=== PATIENT | male | born 1950 | race Caucasian/White ===

== ENCOUNTER → 2018-02-01 09:21 | Outpatient (CLI) | payer OTHER, SELFPAY ==
[2018-02-01 10:16] LABS: Anion Gap 9 (5-15); BUN 17 mg/dL (7-18); BUN/Creat Ratio 17.6 RATIO (10-20); Calcium,Total 8.8 mg/dL (8.5-10.1); Chloride 108 mmol/L (98-107); Cholesterol 160 mg/dL (200); Creatinine, Serum 0.97 mg/dL (0.70-1.30); EST Glomerular Filtration Rate 83 mL/min (>60); Est Glom Filt Rate - Afr Amer 100 mL/min (>60); Glucose 97 mg/dL (74-106); High Density Lipoprotein 54 mg/dL; PSA,Total- Diagnostic 8.47 ng/mL (0.0-4.0); Sodium Level 142 mmol/L (136-145); Triglycerides 75 mg/dL; Very Low Density Lipoprotein 15 mg/dL (5-40)
== END ==
PROVIDERS: Family Provider Family Medicine; PCP Family Medicine; Visit Provider Family Medicine
DX: I10 Essential (primary) hypertension (principal); E78.00 Pure hypercholesterolemia, unspecified; R97.20 Elevated prostate specific antigen [PSA]
CPT/HCPCS: 80048; 80061; 84153

== ENCOUNTER → 2018-02-28 16:32 | Outpatient (CLI) | payer MEDICARE, OTHER, SELFPAY ==
--- NOTE | 2018-02-28 11:43 | COLBX_PTH ---
PATIENT: ELLIOT VELASQUEZ LOC: [facility] U#:[id number] AGE/SX: 75/M ROOM: RE02/28/[address]: Dr. Manjeet El MD : 1950 BED: DIS: SPEC #: [id number] RECD: 02/28/18 15:36 STATUS: LAKEISHA PARKEROneyda #: [id number] PWAEL: 02/28/18 11:[address]: Manjeet El DEPT: SURGICAL PATHOLOGY RECD BY: Eulalia Copeland ENTERED: 03/03/18 11:22 SP TYPE: COLON BX OTHR DR: Dr. Kannan Cooper MD [facility] Tissues: Transverse colon Procedures: Surgery Specimen Level IV HEADER OPERATION: Colonoscopy with biopsies PRE-OP DIAGNOSIS: Family history colon CA TISSUE SUBMITTED: Transverse colon polyp biopsies, rule out adenoma MICROSCOPIC DIAGNOSIS Transverse colon polyp, biopsy: Tubular adenoma. Fragments of hyperplastic polyp. SJ:tami 7/24/18 MICROSCOPIC DESCRIPTION Slides are reviewed. GROSS DESCRIPTION Received in fixative is one container labeled with the patient's name and designated transverse colon polyp biopsy. The specimen consists of multiple irregular fragments of light hall soft tissue that in aggregate measure 1.5 x 0.3 x 0.1 cm. The specimen is totally submitted in one cassette. / SJ:rg 03/03/18 TC:1 CPT: 88226
== END ==
PROVIDERS: Family Provider Family Medicine; Visit Provider Internal Medicine Gastroenterology
DX: Z80.0 Family history of malignant neoplasm of digestive organs (principal)
CPT/HCPCS: 88305

== ENCOUNTER → 2018-05-19 10:34 | Outpatient (CLI) | payer MEDICARE, OTHER, SELFPAY ==
--- NOTE | 2018-05-19 10:42 | RAD_ITS ---
STUDY: X-RAY - RIGHT FOOT CLINICAL: Male, 68 years old. Injury and pain TECHNIQUE: Three view(s) of the foot were obtained. COMPARISON: None. FINDINGS: Bones: There are no acute osseous abnormalities. Joints: The visualized joints are unremarkable. Soft tissues: There is mild diffuse soft tissue swelling. There is a small calcification in the soft tissues adjacent to the medial cuneiform on the oblique image. Vascular calcifications are present. Foreign body: None RAD/Foot min 3 Views IMPRESSION: Possible small fragment fragment off the medial cuneiform. Electronically Signed: Lena Nieto MD at 19:55 EDT Tel Direct: [phone], Service support ,
== END ==
PROVIDERS: Family Provider Family Medicine; PCP Family Medicine; Referring Provider Nurse Practitioner Family; Visit Provider Nurse Practitioner Family
DX: S93.601A Unspecified sprain of right foot, initial encounter (principal)
CPT/HCPCS: 73630

== ENCOUNTER → 2018-09-25 09:00 | Outpatient (CLI) | payer MEDICARE, OTHER, SELFPAY ==
[2018-09-25 10:30] LABS: PSA,Total - Annual Screen < 0.01 ng/mL (0.00-4.00)
== END ==
PROVIDERS: Family Provider Family Medicine; PCP Family Medicine
DX: C61 Malignant neoplasm of prostate (principal)
CPT/HCPCS: 36415; 84153; G0103

== ENCOUNTER → 2018-12-25 09:12 | Outpatient (CLI) | payer MEDICARE, OTHER, SELFPAY ==
[2018-10-18 11:34] VITALS: BMI 25.1
[2018-12-25 10:46] LABS: PSA,Total- Diagnostic 0.01 ng/mL (0.0-4.0)
== END ==
PROVIDERS: Family Provider Family Medicine; PCP Family Medicine
DX: C61 Malignant neoplasm of prostate (principal)
CPT/HCPCS: 36415; 84153

== ENCOUNTER → 2019-02-11 09:47 | Outpatient (CLI) | payer MEDICARE, OTHER, SELFPAY ==
[2018-10-18 11:34] VITALS: BMI 25.1
[2019-02-11 13:15] LABS: Anion Gap 5 (5-15); BUN 18 mg/dL (7-18); BUN/Creat Ratio 20.2 RATIO (10-20); Calcium,Total 9.4 mg/dL (8.5-10.1); Chloride 107 mmol/L (98-107); Cholesterol 180 mg/dL (200); Creatinine, Serum 0.89 mg/dL (0.70-1.30); EST Glomerular Filtration Rate 91 mL/min (>60); Est Glom Filt Rate - Afr Amer 110 mL/min (>60); Glucose 84 mg/dL (74-106); High Density Lipoprotein 54 mg/dL; PSA,Total- Diagnostic 0.03 ng/mL (0.0-4.0); Potassium 4.7 mmol/L (3.5-5.1); Sodium Level 139 mmol/L (136-145); Triglycerides 95 mg/dL; Very Low Density Lipoprotein 19 mg/dL (5-40)
== END ==
PROVIDERS: Family Provider Family Medicine; PCP Family Medicine; Referring Provider Family Medicine; Visit Provider Family Medicine
DX: I10 Essential (primary) hypertension (principal); E78.00 Pure hypercholesterolemia, unspecified; C61 Malignant neoplasm of prostate
CPT/HCPCS: 36415; 80048; 80061; 84153

== ENCOUNTER → 2019-03-11 13:14 | Outpatient (CLI) | payer SELFPAY ==
[2018-10-18 11:34] VITALS: BMI 25.1
--- NOTE | 2019-03-11 13:20 | CT_ITS ---
STUDY: CARDIAC CALCIUM SCORING - CT CHEST REASON FOR EXAM: Male, 69 years old. Hypertension RADIATION DOSAGE (If Supplied By Facility): CTDIvol = ( 12.19 ) mGy, DLP = ( 195.04 ) mGycm TECHNIQUE: Axial non-enhanced images were acquired through the heart for the sole purpose of measuring coronary artery calcium. Individualized dose optimization techniques were used for this CT. COMPARISON: None. FINDINGS: Please see the patient's medical record for a personalized calcium score. Visualized lungs are clear. The visualized soft tissues are within normal limits. CT/Limited Chest CT w/CCTA IMPRESSION: Please see the patient's medical record for a personalized calcium score. Please go to: [email or web address] , for a description of the calculator. Electronically Signed: Christiano Anthony, at 14:26 EDT Tel , Service support ,
[2019-03-11 13:47] VITALS: BP 131/77; PULSE 58; RESP 18; O2SAT 95; BMI 24.8
--- NOTE | 2019-03-11 22:49 | CA.SCORE ---
Calcium Scoring Date of Study:: 03/11/19 Coronary Calcium Scoring: High-resolution Computed Tomographic imaging of the chest was performed on [03/11/2019], with particular attention paid to the coronary arteries. Images from the examination were analyzed for the presence and extent of coronary artery calcification , using coronary calcium quantification software. The patient tolerated the procedure well and there were no complications. The results of the coronary calcification analysis are provided below. - Findings Left Main (LM): 0 Left Anterior Descending (LAD): 162 Left Circumflex (LCX): 3 Right Coronary Artery (RCA): 431 Total Agatston Score: 596 Percentile Rankin - Conclusion Calcium Scoring Interpretation: 0 No identifiable atherosclerotic plaque. Very low cardiovascular disease risk. <5% chance of presence coronary artery disease A Negative Examination 1-10 Minimal Plaque burden. Significant coronary artery disease very unlikely. 11-100 Mild plaque burden. Likely mild or minimal coronary atherosclerosis. 101-400 Moderate plaque burden Moderate non-obstructive coronary artery disease highly likely. Over 400 Extensive plaque burden. High likelihood of at least one significant coronary stenosis (>50% diameter) Calcium Score: >400 High likelihood of at least one significant coronary stenosis - The above is suggestive of an elevated calcium score with a high likelihood that at least one coronary artery has a stenosis of more than 50%. For cardiac evaluation of risk should involve assessment of all conventional risk factors and the scores and percentile findings reported herein should be evaluated in this context.
== END ==
PROVIDERS: Family Provider Family Medicine; PCP Family Medicine; Referring Provider Family Medicine; Visit Provider Family Medicine
DX: I10 Essential (primary) hypertension (principal)
CPT/HCPCS: 75571; 76380

== ENCOUNTER → 2019-03-26 14:47 | Outpatient (CLI) | payer MEDICARE, OTHER, SELFPAY ==
[2019-03-11 13:47] VITALS: BMI 24.8
[2019-03-26 16:05] LABS: PSA,Total- Diagnostic 0.04 ng/mL (0.0-4.0)
== END ==
PROVIDERS: Family Provider Family Medicine; PCP Family Medicine
DX: C61 Malignant neoplasm of prostate (principal)
CPT/HCPCS: 36415; 84153

== ENCOUNTER → 2019-04-29 06:48 | Outpatient (CLI) | payer MEDICARE, OTHER, SELFPAY ==
[2019-04-01 14:42] VITALS: BMI 25.2
--- NOTE | 2019-04-29 06:50 | ECHOD_ITS ---
Reason For Study: Dyspnea/SOB Procedure This was a 2D Doppler, Color Flow transthoracic echocardiogram. Exam performed in department. Left Ventricle Normal LV size. Left ventricular systolic function is normal. The estimated ejection fraction is 65 %. Stage 1 diastolic dysfunction. No regional wall motion abnormalities noted. Right Ventricle Normal RV size. Normal systolic function. Atria Normal left atrium. Normal right atrium. Bubble contrast study negative for right to left interatrial shunt. Mitral Valve Normal mitral valve. Mild-Moderate (1-2+) eccentric mitral valve insufficiency. Tricuspid Valve Normal tricuspid valve. Mild tricuspid valve insufficiency. Pulmonary artery systolic pressure is 25 mmHg. Aortic Valve Normal aortic valve. Trisinus/trileaflet aortic valve. Great Vessels Normal aortic root. The pulmonary artery is normal size. Normal inferior vena cava. Pericardium/Pleural No pericardial effusion. Medication Performed a rapid injection of agitated mix of 9 cc saline and 1cc air to assess for atrial septal defect. MMode/2D Measurements & Calculations LVIDd: 4.7 cm IVSd: 1.4 cm Ao root diam: 3.0 cm LVIDs: 2.7 cm LVPWd: 1.1 cm RVDd: 3.7 cm FS: 43.2 % LAV(MOD-bp): 55.4 ml LVAd ap4: 29.2 cm2 SV(MOD-sp4): 52.3 ml LAV(MOD-bp) Indexed: 28.0 ml/m2 EDV(MOD-sp4): 93.2 ml LAV(MOD-sp2): 62.2 ml EDV(sp4-el): 94.9 ml LAV(MOD-sp4): 47.7 ml LVAs ap4: 17.4 cm2 ESV(MOD-sp4): 40.9 ml ESV(sp4-el): 39.9 ml EF(MOD-sp4): 56.1 % EF(sp4-el): 57.9 % SV(sp4-el): 54.9 ml LA A4 area: 17.7 cm2 LA dimension(2D): 4.6 cm RA A4 area: 19.3 cm2 Doppler Measurements & Calculations MV E max ld: 49.8 cm/sec Lat Peak E' Ld: 8.0 cm/sec Med Peak E' Ld: 6.1 cm/sec MV A max ld: 52.8 cm/sec E/E' lat: 6.2 E/E' med: 8.2 MV E/A: 0.94 Ao V2 max: 122.9 cm/sec AI max ld: 480.6 cm/sec LV V1 max: 97.0 cm/sec Ao max P.0 mmHg AI max P.4 mmHg LV V1 max P.8 mmHg Ao V2 mean: 80.4 cm/sec Ao mean P.9 mmHg AI dec slope: 152.8 cm/sec2 Ao V2 VTI: 29.0 cm AI P1/2t: 921.2 msec PA V2 max: 138.5 cm/sec TR max ld: 234.1 cm/sec TR max P.9 mmHg Interpretation Summary Normal LV size. Left ventricular systolic function is normal. The estimated ejection fraction is 65 %. Stage 1 diastolic dysfunction. Mild-Moderate (1-2+) eccentric mitral valve insufficiency. Mild tricuspid valve insufficiency. Ordering Physician: Hector Yuen Referring Physician: Kannan Carlton Performed By: Lianne Zhang, SUSSY, RVT
--- NOTE | 2019-04-29 12:41 | STRESSREP ---
Stress Test Report Exercise myocardial perfusion stress test. 69-year-old man with a history of abnormal cardiac CT. Stress protocol demonstrates normal sinus rhythm sinus bradycardia with a rate of 44 bpm resting blood pressure is 120/80 mmHg. The patient exercised according to regular Fede protocol for a total duration of 10 minutes completing 1 minute into stage IV of the Fede protocol. The maximum heart rate attained was 115 bpm to 75% maximum corrected heart rate maximum workload was 11.7 metabolic equivalents. Patient maintained sinus rhythm throughout the recording. At rest were no ST or T wave changes noted suggest ischemia at peak exercise upsloping ST changes only were noted with no meet the criteria for ischemia. No clinical angina was noted. The resting blood pressure 120 over 80 mmHg the peak blood pressure 160/64 mmHg. Noted the test was terminated due to leg fatigue. Myocardial perfusion protocol. 8.8 mCi of technetium 99m sestamibi was injected at rest. The patient exercised to consider Leptospira call for total duration of 10 minutes. At peak exercise 29.5 mCi of technetium 99 M sestamibi was injected and stress images were obtained stress and rest images were reconstructed in comparing the short axis vertical and horizontal long axes. Gated images was obtained Perfusion SPECT analysis: Review of the stress images demonstrate normal uptake of tracer noted in all the rest myocardium the rest images demonstrate normal uptake of tracer noted in all areas of myocardium no areas of reversibility or notes suggest ischemia no previous infarct is noted. Gated SPECT analysis: The gated ejection fraction is noted to be 60% Conclusion: Normal exercise myocardial perfusion stress test at a high workload. Preserved ejection fraction Excellent functional capacity.
== END ==
PROVIDERS: Family Provider Family Medicine; PCP Family Medicine; Referring Provider Internal Medicine Cardiovascular Disease; Visit Provider Internal Medicine Cardiovascular Disease
DX: R93.1 Abnormal findings on diagnostic imaging of heart and coronary circulation (principal); I10 Essential (primary) hypertension; I25.10 Atherosclerotic heart disease of native coronary artery without angina pectoris; R06.00 Dyspnea, unspecified
CPT/HCPCS: 78452; 93017; 93306; A9500; A4216

== ENCOUNTER → 2019-06-04 15:25 | Outpatient (CLI) | payer MEDICARE, OTHER, SELFPAY ==
[2019-04-01 14:42] VITALS: BMI 25.2
[2019-06-04 17:34] LABS: PSA,Total- Diagnostic 0.06 ng/mL (0.0-4.0)
== END ==
PROVIDERS: Family Provider Family Medicine; PCP Family Medicine
DX: C61 Malignant neoplasm of prostate (principal)
CPT/HCPCS: 36415; 84153

== ENCOUNTER → 2019-10-10 11:24 | Outpatient (CLI) | payer MEDICARE, OTHER, SELFPAY ==
[2019-04-01 14:42] VITALS: BMI 25.2
[2019-10-10 12:25] LABS: PSA,Total - Annual Screen 0.02 ng/mL (0.00-4.00)
== END ==
PROVIDERS: PCP Family Medicine
DX: C61 Malignant neoplasm of prostate (principal)
CPT/HCPCS: 36415; 84153; G0103

== ENCOUNTER → 2020-01-22 09:30 | Outpatient (CLI) | payer MEDICARE, OTHER, SELFPAY ==
[2019-04-01 14:42] VITALS: BMI 25.2
[2020-01-22 10:20] LABS: ALB/GLOB Ratio 0.9 RATIO (0.9-2.4); AST(SGOT) 24 U/L (15-37); Alanine Aminotransfer ALT/SGPT 31 U/L (16-61); Albumin, Serum 3.4 g/dL (3.2-5.0); Alkaline Phosphatase 62 U/L (45-117); Anion Gap 6 (5-15); BUN 17 mg/dL (7-18); BUN/Creat Ratio 19.2 RATIO (10-20); Calcium,Total 8.8 mg/dL (8.5-10.1); Chloride 109 mmol/L (98-107); Cholesterol 179 mg/dL (200); Creatinine, Serum 0.89 mg/dL (0.70-1.30); EST Glomerular Filtration Rate 91 mL/min (>60); Est Glom Filt Rate - Afr Amer 110 mL/min (>60); Globulin 3.8 g/dL (2.2-4.2); Glucose 91 mg/dL (74-106); High Density Lipoprotein 56 mg/dL; PSA,Total- Diagnostic < 0.01 ng/mL (0.0-4.0); Protein, Total 7.2 g/dL (6.4-8.2); Sodium Level 142 mmol/L (136-145); Triglycerides 112 mg/dL; Very Low Density Lipoprotein 22 mg/dL (5-40)
== END ==
PROVIDERS: PCP Family Medicine; Referring Provider Family Medicine; Visit Provider Family Medicine
DX: C61 Malignant neoplasm of prostate (principal); I10 Essential (primary) hypertension
CPT/HCPCS: 36415; 80053; 80061; 84153

== ENCOUNTER → 2020-04-08 13:18 | Outpatient (CLI) | payer MEDICARE, OTHER, SELFPAY ==
[2020-04-05 07:01] VITALS: BMI 25.5
[2020-04-08 16:45] LABS: Ferritin 141 ng/mL (26-388)
== END ==
PROVIDERS: PCP Family Medicine; Referring Provider Internal Medicine Pulmonary Disease; Visit Provider Internal Medicine Pulmonary Disease
DX: M79.606 Pain in leg, unspecified (principal)
CPT/HCPCS: 36415; 82728

== ENCOUNTER → 2020-04-20 09:55 | Outpatient (CLI) | payer MEDICARE, OTHER, SELFPAY ==
[2020-04-05 07:01] VITALS: BMI 25.5
[2020-04-20 11:58] LABS: PSA,Total- Diagnostic < 0.01 ng/mL (0.0-4.0)
== END ==
PROVIDERS: PCP Family Medicine
DX: C61 Malignant neoplasm of prostate (principal)
CPT/HCPCS: 36415; 84153

== ENCOUNTER → 2020-04-25 06:06 | Outpatient (CLI) | payer MEDICARE, OTHER, SELFPAY ==
[2020-04-05 07:01] VITALS: BMI 25.5
--- NOTE | 2020-04-25 10:28 | STRESSREP ---
Stress Test Report Exercise myocardial perfusion stress test. 70-year-old man with a history of an abnormal calcium score. Stress protocol: Resting EKG demonstrates sinus bradycardia with a rate of 45 bpm resting blood pressure is 154/84 mmHg. The patient exercised according to the regular Fede protocol for a total duration of 9 minutes and 21 seconds. The maximum heart rate attained was 142 bpm which was 93% of maximum predicted heart rate the maximum workload was 10.6 metabolic equivalents. At rest there were no ST or T wave changes noted to suggest ischemia at peak exercise upsloping ST changes were noted we did not meet the criteria for ischemia. The test was terminated due to the target heart rate being achieved. No chest pain was noted. Myocardial perfusion protocol. 11.8 mCi of technetium 99m sestamibi was injected at rest. The patient exercised according to regular Fede protocol for almost 9-1/2 minutes at peak exercise 32.0 mCi of technetium 99m sestamibi was injected stress images were obtained stress and rest images were reconstructed and compared in the short axis vertical long and horizontal long axis. Gated images were also obtained. Perfusion SPECT analysis: Review of the stress images demonstrate normal uptake of tracer noted in the anterior wall, lateral wall and septum. The inferior wall demonstrates mild reduction in perfusion with mild improvement on the resting images suggesting a mild amount of inferior ischemia. The other pritchard appear to be well perfused. Gated SPECT analysis: The gated ejection fraction is 72%. Conclusion: Mildly abnormal exercise myocardial perfusion stress test at a high workload with mild inferior ischemia. Preserved ejection fraction.
== END ==
PROVIDERS: PCP Family Medicine; Referring Provider Internal Medicine Cardiovascular Disease; Visit Provider Internal Medicine Cardiovascular Disease
DX: I25.10 Atherosclerotic heart disease of native coronary artery without angina pectoris (principal); R06.00 Dyspnea, unspecified
CPT/HCPCS: 78452; 93017; A9500; A4216

== ENCOUNTER 2020-05-02 08:37 | Day surgery (SDC) | payer MEDICARE, OTHER, SELFPAY ==
[2020-04-05 07:01] VITALS: BMI 25.5
--- NOTE | 2020-04-25 14:12 | RAD_ITS ---
STUDY: X-RAY CHEST REASON FOR EXAM: Male, 70 years old. abnormal stress, CAD, patient to have heart cath in near future TECHNIQUE: PA and lateral views of the chest. COMPARISON: 01/25/2013 FINDINGS: There is hyperinflation of the lungs consistent with chronic obstructive lung disease (COPD). There is no demonstrated pleural abnormality. Normal size heart. Normal mediastinum and kevin. Normal visualized pulmonary arteries. Normal visualized aortic arch and descending thoracic aorta. Normal visualized thoracic spine. Normal visualized ribs, clavicles, and shoulders. There is no demonstrated abnormality of the visualized soft tissue structures of the upper abdomen. RAD/Chest PA and Lateral IMPRESSION: Emphysema without pneumonia or atelectasis. Electronically Signed: Winston Torres MD at 16:41 EDT Tel , Service support ,
[2020-04-25 15:15] LABS: Hemoglobin 14.7 g/dL (13.0-16.5); Mean Corp Hgb Conc 33.4 g/dL (32-36); Mean Corpuscular Hgb 30.7 pg (27.0-32.0); Mean Corpuscular Volume 91.9 fL (80-94); Mean Platelet Vol. 9.7 fl (6.2-12.0); Platelet Count 207 K/mm3 (150-450); RBC Distribution Width CV 13.3 % (11.6-14.6); RBC Distribution Width SD 45.3 fl (35.1-43.9); Red Blood Count 4.79 M/mm3 (4.6-6.2); White Blood Count 7.2 K/mm3 (4.4-11.0)
[2020-04-25 15:52] LABS: Anion Gap 4 (5-15); BUN 16 mg/dL (7-18); Calcium,Total 8.9 mg/dL (8.5-10.1); Chloride 110 mmol/L (98-107); Creatinine, Serum 0.84 mg/dL (0.70-1.30); EST Glomerular Filtration Rate 97 mL/min (>60); Est Glom Filt Rate - Afr Amer 117 mL/min (>60); Glucose 87 mg/dL (74-106); Potassium 4.1 mmol/L (3.5-5.1); Sodium Level 141 mmol/L (136-145)
[2020-04-27 14:06] VITALS: BMI 25.5
--- NOTE | 2020-05-02 11:04 | CL.D_ITS ---
Patient Name: ELLIOT VELASQUEZ Study Date: 05/02/2020 Performing: Hector Yuen MD Ht: 70.07 inches 178 cm : 1950 Wt: 178.57 lbs 81 kg Age: 70 Gender: male BSA: 1.99 PROCEDURE(S) PERFORMED [id number]/LV CLINICAL PROFILE AND INDICATIONS Indications: Suspected CAD Heart Failure: None Stress/Imaging Date: 04/25/2020Stress Test with SPECT MPI: Positive Low Risk CAD Presentations: No Sxs, no angina. CONCLUSIONS Moderate disease noted in the ostial left anterior descending artery. The rest of the vessels did no t demonstrate any significant stenosis. RECOMMENDATIONS In light of the fact that the patient exercised very well on the treadmill for 9 minutes with no ante rior ischemia the plan is to continue with aggressive medical therapy and double the statin DESCRIPTION OF PROCEDURE The patient arrived to the procedure lab. The risks and benefits of the procedure as well as a full d escription of our services here and current unavailability of surgical backup were fully explained to the patient and/or their significant other prior to the catheterization. The Timeout was completed, verifying the correct patient and procedure. The patient's procedural site was prepped and draped in the usual fashion. Local anesthetic was given subcutaneously to right radial region with Lidocaine 2% . Using a modified Seldinger technique, arterial access was obtained via the right radial artery, a 6 Fr sheath was inserted. Right Coronary Artery selective angiography was performed in multiple views using a 5 Fr. 4.0 [employer] catheter. Left Coronary Artery selective angiography was performed in multipl e views using a 5 Fr. 4.0 [employer] catheter. Left Ventriculography was performed in MAC projection using a 5 Fr. Pigtail catheter. LV to AO pullback pressures were then recorded.The arterial sheath was pulled and a TR Band was applied for hemostasis CORONARY ANGIOGRAPHY DOMINANCE: Right Dominant LEFT HEART ASSESSMENT Left Ventricular Ejection Fraction: by LV Gram 60 % Normal LV wall motion Normal Left Ventricular systolic function LEFT MAIN: Angiographically normal LEFT ANTERIOR DESCENDING ARTERY: OSTIAL LAD: 60 % Stenosis MID LAD: Mild luminal irregularities DISTAL LAD: Mild luminal irregularities CIRCUMFLEX ARTERY: Mild luminal irregularities RIGHT CORONARY ARTERY: No significant disease noted COMPLICATIONS No Complications PROCEDURE MEDICATIONS Fentanyl 50 mcg IV Versed 1 mg IV Oxygen: 2 L/min via nasal cannula Heparin diluted in 23cc Heparinized saline. Patient given 10cc IA of this solution. 05/02/2020 10:44: 50 SUMMARY OF HEMODYNAMIC DATA Time AIR REST ECG 09:08:29 AO 102/47 (69) SA 10:46:47 LV 113/-7, 0 10:54:58 LV 118/-6, 1 10:55:04 LV 114/-2, 5 10:55:32 LV 66/-12, 2 10:55:39 LVp 97/-6, 1 10:55:44 AOp 106/45 (68) 10:55:49 Signed By Hector Yuen MD On 05/02/2020 11:03:57 AM Hector Yuen MD
== END 2020-05-02 13:00 | disposition home or self-care (01) ==
LOC: CLSP 08:39
PROVIDERS: PCP Family Medicine; Referring Provider Internal Medicine Cardiovascular Disease; Visit Provider Internal Medicine Cardiovascular Disease
DX: R06.00 Dyspnea, unspecified (principal); I10 Essential (primary) hypertension; E78.5 Hyperlipidemia, unspecified; R94.39 Abnormal result of other cardiovascular function study; G47.33 Obstructive sleep apnea (adult) (pediatric); F32.9 Major depressive disorder, single episode, unspecified; Z82.49 Family history of ischemic heart disease and other diseases of the circulatory system
CPT/HCPCS: 36415; 71046; 80048; 85027; 93458; 99152; 99153; J7040; Q9967; C1769; C1894

== ENCOUNTER → 2020-06-06 12:07 | Outpatient (CLI) | payer MEDICARE, OTHER, SELFPAY ==
[2020-04-27 14:06] VITALS: BMI 25.5
[2020-06-06 15:22] LABS: Absolute Lymphocyte Count 1.16 X10^3/uL (0.83-4.51); Absolute Neutrophil Count 4.5 X10^3/uL (2.0-7.7); Basophil# 0.03 X10^3/uL; Basophil% 0.5 % (0-1); Eosinophil# 0.05 X10^3/uL; Eosinophils% 0.8 % (0-5); Hematocrit 44.8 % (40-54); Hemoglobin 14.6 g/dL (13.0-16.5); Lymphocyte # 1.16 X10^3/ul (4.0); Lymphocyte % 18.7 % (19-41); Mean Corp Hgb Conc 32.6 g/dL (32-36); Mean Corpuscular Hgb 30.5 pg (27.0-32.0); Mean Corpuscular Volume 93.7 fL (80-94); Monocyte# 0.47 X10^3/uL; Monocyte% 7.6 % (0-10); NRBC Flagged by Analyzer 0 % (0-5); Neutrophil # 4.47 X10^3/uL (2.7-7.7); Neutrophil % 72.1 % (47-70); Platelet Count 193 K/mm3 (150-450); RBC Distribution Width CV 13.4 % (11.6-14.6); RBC Distribution Width SD 46.6 fl (35.1-43.9); Red Blood Count 4.78 M/mm3 (4.6-6.2); White Blood Count 6.2 K/mm3 (4.4-11.0)
[2020-06-06 15:32] LABS: AST(SGOT) 20 U/L (15-37); Alanine Aminotransfer ALT/SGPT 32 U/L (16-61); Albumin, Serum 3.7 g/dL (3.2-5.0); Alkaline Phosphatase 65 U/L (45-117); Anion Gap 5 (5-15); BUN 15 mg/dL (7-18); BUN/Creat Ratio 15.7 RATIO (10-20); Calcium,Total 9.7 mg/dL (8.5-10.1); Chloride 109 mmol/L (98-107); Creatinine, Serum 0.96 mg/dL (0.70-1.30); EST Glomerular Filtration Rate 83 mL/min (>60); Est Glom Filt Rate - Afr Amer 101 mL/min (>60); Globulin 3.6 g/dL (2.2-4.2); Glucose 82 mg/dL (74-106); Lipase 91 U/L (73-393); Potassium 4.4 mmol/L (3.5-5.1); Protein, Total 7.3 g/dL (6.4-8.2); Sodium Level 143 mmol/L (136-145)
== END ==
PROVIDERS: PCP Family Medicine; Referring Provider Family Medicine; Visit Provider Family Medicine
DX: R10.9 Unspecified abdominal pain (principal)
CPT/HCPCS: 36415; 80053; 83690; 85025

== ENCOUNTER → 2020-06-13 10:10 | Outpatient (CLI) | payer MEDICARE, OTHER, SELFPAY ==
[2020-04-27 14:06] VITALS: BMI 25.5
--- NOTE | 2020-06-13 10:11 | US_ITS ---
STUDY: ABDOMINAL ULTRASOUND REASON FOR EXAM: Male, 70 years old. ABD DISCOMFORT -- ACID REFLUX TECHNIQUE: Transabdominal ultrasound was performed with real-time and static becker scale imaging. TECHNICAL QUALITY: Adequate. COMPARISON: None. FINDINGS: Liver: The liver measures 16.7 cm. There is normal echogenicity of the liver. The bile ducts are within normal limits. There is hepatic color flow. The direction of portal flow is hepatopetal. There is a 1.3 cm x 1.3 cm x 1.2 cm echogenic nodule in the dome portion of the right lobe of the liver suggestive of a small hemangioma. Portal vein measurement: Gallbladder: Normal distended gallbladder. The gallbladder wall measures 2.4 mm. There is a negative sonographic Parra''s sign. There is no pericholecystic fluid. There are no gallstones. Common Bile Duct (C.B.D.): The common bile duct measures 4.0 mm. Pancreas: Normal size of the head, body and tail of the pancreas. There is increased echogenicity of the pancreas. There is no demonstrated pancreatic mass or cyst. Spleen: Normal size of the spleen. The spleen measures 9.4 cm x 4.6 cm x 5.3 cm. Right Kidney: Normal size of the right kidney. The right kidney measures 11.5 cm x 6.8 cm x 5.8 cm. Normal renal cortex. The right cortex measures 2.1 cm. There is no demonstrated renal mass or cyst. There is no right hydronephrosis. Left Kidney: Normal size of the left kidney. The left kidney measures 11.2 cm x 4.4 cm x 5.4 cm. Normal renal cortex. The left cortex measures 1.2 cm. There is no demonstrated renal mass or cyst. There is no left hydronephrosis. Aorta: Unremarkable. I.V.C.: The IVC is patent. There is no ascites. US/Abdomen Complete IMPRESSION: 1.3 cm x 1.3 cm x 1.2 cm echogenic nodule and in the dome portion of the right lobe of the liver suggestive of a small hemangioma. Electronically Signed: Lucas Romano, at 14:04 EST , Service support ,
== END ==
PROVIDERS: PCP Family Medicine; Referring Provider Family Medicine; Visit Provider Family Medicine
DX: R10.9 Unspecified abdominal pain (principal)
CPT/HCPCS: 76700

== ENCOUNTER → 2020-07-30 11:07 | Outpatient (CLI) | payer MEDICARE, OTHER, SELFPAY ==
[2020-07-30 11:59] LABS: PSA,Total- Diagnostic < 0.01 ng/mL (0.0-4.0)
== END ==
PROVIDERS: PCP Family Medicine
DX: C61 Malignant neoplasm of prostate (principal)
CPT/HCPCS: 36415; 84153

== ENCOUNTER 2020-10-18 10:20 | Outpatient (RCR) | payer MEDICARE, OTHER, SELFPAY ==
[2020-10-18] MEDS: COVID-19 VACC, MRNA(PFIZER)/PF 30 MCG/0.3 ML SYRINGE IM (07:39)
[2020-11-08] MEDS: COVID-19 VACC, MRNA(PFIZER)/PF 30 MCG/0.3 ML SYRINGE IM (07:39)
== END 2021-01-17 23:59 ==
LOC: IMMUN 10:20
PROVIDERS: PCP Family Medicine; Visit Provider Family Medicine
DX: Z23 Encounter for immunization (principal)
CPT/HCPCS: 0001A; 0002A; 91300

== ENCOUNTER → 2020-11-03 11:32 | Outpatient (CLI) | payer MEDICARE, OTHER, SELFPAY ==
[2020-11-03 12:42] LABS: PSA,Total- Diagnostic < 0.01 ng/mL (0.0-4.0)
== END ==
PROVIDERS: PCP Family Medicine
DX: C61 Malignant neoplasm of prostate (principal)
CPT/HCPCS: 36415; 84153

== ENCOUNTER → 2021-02-17 10:47 | Outpatient (CLI) | payer MEDICARE, OTHER, SELFPAY ==
[2020-12-15 10:44] VITALS: BMI 25.5
[2021-02-17 12:16] LABS: PSA,Total- Diagnostic < 0.01 ng/mL (0.0-4.0)
== END ==
PROVIDERS: PCP Family Medicine
DX: C61 Malignant neoplasm of prostate (principal)
CPT/HCPCS: 36415; 84153

== ENCOUNTER → 2021-02-24 09:11 | Outpatient (CLI) | payer MEDICARE, OTHER, SELFPAY ==
[2020-12-15 10:44] VITALS: BMI 25.5
[2021-02-24 10:15] LABS: ALB/GLOB Ratio 1.1 RATIO (0.9-2.4); AST(SGOT) 28 U/L (15-37); Alanine Aminotransfer ALT/SGPT 36 U/L (16-61); Albumin, Serum 3.7 g/dL (3.2-5.0); Alkaline Phosphatase 71 U/L (45-117); Anion Gap 4 (5-15); BUN 17 mg/dL (7-18); BUN/Creat Ratio 18.3 RATIO (10-20); Calcium,Total 9.2 mg/dL (8.5-10.1); Chloride 105 mmol/L (98-107); Cholesterol 181 mg/dL (200); Creatinine, Serum 0.93 mg/dL (0.70-1.30); EST Glomerular Filtration Rate 86 mL/min (>60); Est Glom Filt Rate - Afr Amer 104 mL/min (>60); Globulin 3.5 g/dL (2.2-4.2); Glucose 90 mg/dL (74-106); High Density Lipoprotein 51 mg/dL; Potassium 4.1 mmol/L (3.5-5.1); Protein, Total 7.2 g/dL (6.4-8.2); Sodium Level 140 mmol/L (136-145); Triglycerides 176 mg/dL; Very Low Density Lipoprotein 35 mg/dL (5-40)
== END ==
PROVIDERS: PCP Family Medicine; Referring Provider Family Medicine; Visit Provider Family Medicine
DX: E78.00 Pure hypercholesterolemia, unspecified (principal)
CPT/HCPCS: 36415; 80053; 80061

== ENCOUNTER → 2021-05-22 12:59 | Outpatient (CLI) | payer MEDICARE, OTHER, SELFPAY ==
[2021-05-22 14:26] LABS: PSA,Total - Annual Screen < 0.01 ng/mL (0.00-4.00)
== END ==
DX: C61 Malignant neoplasm of prostate (principal)
CPT/HCPCS: 36415; 84153; G0103

== ENCOUNTER → 2021-09-28 10:58 | Outpatient (CLI) | payer MEDICARE, OTHER, SELFPAY ==
[2021-09-28 12:04] LABS: PSA,Total- Diagnostic < 0.01 ng/mL (0.0-4.0)
== END ==
PROVIDERS: PCP Family Medicine
DX: C61 Malignant neoplasm of prostate (principal)
CPT/HCPCS: 36415; 84153

== ENCOUNTER → 2022-01-24 | Outpatient (CLI) | payer MEDICARE, OTHER, SELFPAY ==
[2022-01-24 13:07] LABS: AST(SGOT) 28 U/L (15-37); Alanine Aminotransfer ALT/SGPT 38 U/L (16-61); Albumin, Serum 3.5 g/dL (3.2-5.0); Alkaline Phosphatase 76 U/L (45-117); Bilirubin, Direct 0.15 mg/dL (0.00-0.30); Cholesterol 159 mg/dL (200); Globulin 3.5 g/dL (2.2-4.2); High Density Lipoprotein 49 mg/dL; Triglycerides 135 mg/dL; Very Low Density Lipoprotein 27 mg/dL (5-40)
== END | disposition home or self-care (01) ==
LOC: LAB 11:19
PROVIDERS: PCP Family Medicine; Visit Provider Internal Medicine Cardiovascular Disease
DX: E78.5 Hyperlipidemia, unspecified (principal)
CPT/HCPCS: 36415; 80061; 80076

== ENCOUNTER → 2022-03-01 | Outpatient (CLI) | payer MEDICARE, OTHER, SELFPAY ==
[2022-03-01 17:15] LABS: AST(SGOT) 27 U/L (15-37); Alanine Aminotransfer ALT/SGPT 32 U/L (16-61); Albumin, Serum 3.6 g/dL (3.2-5.0); Alkaline Phosphatase 72 U/L (45-117); Bilirubin, Direct 0.08 mg/dL (0.00-0.30); Cholesterol 149 mg/dL (200); Globulin 3.5 g/dL (2.2-4.2); High Density Lipoprotein 47 mg/dL; Protein, Total 7.1 g/dL (6.4-8.2); Triglycerides 486 mg/dL
== END | disposition home or self-care (01) ==
LOC: LAB 14:51
PROVIDERS: Internal Medicine Cardiovascular Disease; PCP Family Medicine
DX: E78.00 Pure hypercholesterolemia, unspecified (principal); E78.5 Hyperlipidemia, unspecified
CPT/HCPCS: 36415; 80061; 80076

== ENCOUNTER → 2022-03-05 | Outpatient (CLI) | payer MEDICARE, OTHER, SELFPAY ==
[2022-03-05 15:43] LABS: Anion Gap 6 (5-15); BUN 22 mg/dL (7-18); BUN/Creat Ratio 24.4 RATIO (10-20); Calcium,Total 9.4 mg/dL (8.5-10.1); Chloride 105 mmol/L (98-107); EST Glomerular Filtration Rate 88 mL/min (>60); Est Glom Filt Rate - Afr Amer 107 mL/min (>60); Glucose 85 mg/dL (74-106); Potassium 4.2 mmol/L (3.5-5.1); Sodium Level 139 mmol/L (136-145)
== END | disposition home or self-care (01) ==
LOC: MFPLAB 11:45
PROVIDERS: PCP Family Medicine; Referring Provider Family Medicine; Visit Provider Family Medicine
DX: I10 Essential (primary) hypertension (principal)
CPT/HCPCS: 36415; 80048

== ENCOUNTER → 2022-03-13 | Outpatient (CLI) | payer MEDICARE, OTHER, SELFPAY ==
[2022-03-13 14:21] LABS: PSA,Total- Diagnostic 0.02 ng/mL (0.0-4.0)
== END | disposition home or self-care (01) ==
PROVIDERS: PCP Family Medicine
DX: C61 Malignant neoplasm of prostate (principal)
CPT/HCPCS: 36415; 84153

== ENCOUNTER → 2022-04-12 | Outpatient (CLI) | payer MEDICARE, OTHER, SELFPAY ==
[2022-04-12 11:56] LABS: AST(SGOT) 24 U/L (15-37); Alanine Aminotransfer ALT/SGPT 31 U/L (16-61); Albumin, Serum 3.7 g/dL (3.2-5.0); Alkaline Phosphatase 67 U/L (45-117); Bilirubin, Direct 0.16 mg/dL (0.00-0.30); Cholesterol 161 mg/dL (200); Globulin 3.7 g/dL (2.2-4.2); High Density Lipoprotein 49 mg/dL; Protein, Total 7.4 g/dL (6.4-8.2); Triglycerides 118 mg/dL; Very Low Density Lipoprotein 24 mg/dL (5-40)
== END | disposition home or self-care (01) ==
LOC: LAB 10:41
PROVIDERS: PCP Family Medicine; Referring Provider Internal Medicine Cardiovascular Disease; Visit Provider Internal Medicine Cardiovascular Disease
DX: E78.5 Hyperlipidemia, unspecified (principal); I25.118 Atherosclerotic heart disease of native coronary artery with other forms of angina pectoris
CPT/HCPCS: 36415; 80061; 80076

== ENCOUNTER → 2022-04-17 | Outpatient (CLI) | payer MEDICARE, OTHER, SELFPAY ==
[2022-04-17 17:45] LABS: PSA,Total- Diagnostic < 0.01 ng/mL (0.0-4.0)
== END | disposition home or self-care (01) ==
LOC: LAB 15:30
PROVIDERS: PCP Family Medicine
DX: C61 Malignant neoplasm of prostate (principal)
CPT/HCPCS: 36415; 84153

== ENCOUNTER → 2022-07-04 | Outpatient (CLI) | payer MEDICARE, OTHER, SELFPAY ==
--- NOTE | 2022-07-04 09:06 | RAD_ITS ---
STUDY: X-RAY CHEST REASON FOR EXAM: Male, 72 years old. COUGH Technologist Notes cough, chest congestion TECHNIQUE: XR Chest 2 Views COMPARISON: Yesterday FINDINGS: There is atherosclerotic calcification of the aortic arch with tortuosity. There are diffuse degenerative changes of the visualized thoracic spine. There is degenerative osteoarthritis of the bilateral shoulders. There is no demonstrated pleural abnormality. Normal size heart. Normal mediastinum and kevin. Normal visualized pulmonary arteries. There is no demonstrated abnormality of the visualized soft tissue structures of the upper abdomen. RAD/Chest PA and Lateral IMPRESSION: There are no acute findings. Electronically Signed: Manolo Todd MD at 16:52 EST ,
== END | disposition home or self-care (01) ==
LOC: MTRAD 09:05
PROVIDERS: PCP Family Medicine; Referring Provider Family Medicine; Visit Provider Family Medicine
DX: R05.9 Cough, unspecified (principal)
CPT/HCPCS: 71046

== ENCOUNTER → 2022-08-01 | Outpatient (CLI) | payer MEDICARE, OTHER, SELFPAY | END | disposition home or self-care (01) | LOC: LABSPEC 09:57 | PROVIDERS: PCP Family Medicine; Referring Provider Internal Medicine Pulmonary Disease; Visit Provider Internal Medicine Pulmonary Disease | DX: R05.9 Cough, unspecified (principal) | CPT/HCPCS: 87070; 87205 ==

== ENCOUNTER → 2022-08-17 | Outpatient (CLI) | payer MEDICARE, OTHER, SELFPAY ==
--- NOTE | 2022-08-17 13:20 | CT_ITS ---
STUDY: CT CHEST WITHOUT CONTRAST REASON FOR EXAM: Male, 72 years old. COUGH. History of bronchitis. RADIATION DOSAGE (If Supplied By Facility): CTDIvol = ( 8.88 ) mGy, DLP = ( 302.16 ) mGycm TECHNIQUE: Transaxial imaging was performed without the administration of intravenous contrast material. Multiplanar coronal and sagittal images were reformatted. Individualized dose optimization techniques were used for this CT. COMPARISON: No relevant priors. FINDINGS: CHEST Mild degree of increased linear markings at the lung bases slightly more prominent at the left lung base suggestive of a linear atelectasis and/or scarring. There is no demonstrated pleural abnormality. There are calcifications of the coronary arteries. There are multiple small lymph nodes within the mediastinum, which are normal in size and morphology most compatible with reactive lymph hyperplasia. Normal hilar regions. Normal unenhanced pulmonary arteries. There is atherosclerotic calcification of the aortic arch with tortuosity and elongation of the aortic arch and descending thoracic aorta. There are mild degenerative changes of the thoracic spine. There is a 1.2 cm cyst in the dome of the right lobe of the liver. CT/Chest without Contrast IMPRESSION: Mild degree of increased markings at the lung bases slightly more prominent at the left lung base suggestive of underlying atelectasis and/or scarring. Electronically Signed: Lucas Romano MD at 14:38 EST ,
== END | disposition home or self-care (01) ==
LOC: CT 13:17
PROVIDERS: PCP Family Medicine; Referring Provider Internal Medicine Pulmonary Disease; Visit Provider Internal Medicine Pulmonary Disease
DX: R05.9 Cough, unspecified (principal)
CPT/HCPCS: 71250

== ENCOUNTER → 2022-08-20 | Outpatient (CLI) | payer MEDICARE, OTHER, SELFPAY | END | disposition home or self-care (01) | LOC: LABSPEC 10:10 | PROVIDERS: PCP Family Medicine; Referring Provider Internal Medicine Pulmonary Disease; Visit Provider Internal Medicine Pulmonary Disease | DX: R05.9 Cough, unspecified (principal) | CPT/HCPCS: 87015; 87116; 87206 ==

== ENCOUNTER → 2022-08-21 | Outpatient (CLI) | payer MEDICARE, OTHER, SELFPAY | END | disposition home or self-care (01) | PROVIDERS: PCP Family Medicine; Visit Provider Internal Medicine Pulmonary Disease | DX: R05.9 Cough, unspecified (principal) | CPT/HCPCS: 87015; 87070; 87116; 87205; 87206 ==

== ENCOUNTER → 2022-08-22 | Outpatient (CLI) | payer MEDICARE, OTHER, SELFPAY | END | disposition home or self-care (01) | LOC: LABSPEC 10:29 | PROVIDERS: PCP Family Medicine; Referring Provider Internal Medicine Pulmonary Disease; Visit Provider Internal Medicine Pulmonary Disease | DX: R05.9 Cough, unspecified (principal) | CPT/HCPCS: 87015; 87070; 87116; 87205; 87206 ==

== ENCOUNTER → 2022-10-23 | Outpatient (CLI) | payer MEDICARE, OTHER, SELFPAY ==
[2022-10-23 16:23] LABS: PSA,Total- Diagnostic 0.02 ng/mL (0.0-4.0)
== END | disposition home or self-care (01) ==
PROVIDERS: PCP Family Medicine
DX: C61 Malignant neoplasm of prostate (principal)
CPT/HCPCS: 36415; 84153

== ENCOUNTER → 2022-11-09 | Outpatient (CLI) | payer MEDICARE, OTHER, SELFPAY ==
--- NOTE | 2022-11-09 14:57 | CT_ITS ---
STUDY: CT Abdomen And Pelvis W/ Contrast Injection 11/11/2022 2:48 PM REASON FOR EXAM: Male, 72 years old. Abdominal pain abnormal liver CT. oral and iv contrast please Individualized dose optimization techniques were used for this CT. COMPARISON: None. TECHNIQUE: CT Abdomen And Pelvis W/ Contrast Injection IV-100 ML ISOVUE 370 Study performed 11.09.22 but is only now available for review. FINDINGS: There are atherosclerotic calcifications of visualized coronary arteries. The visualized portions of the heart are within normal limits. Two hypodensities of the right lobe of the liver. More medial lesion measures 13mm and is 14 HU. The more lateral lesion is 11 mm and is indeterminate at 35 HU. However, Post contrast there is peripheral puddling of the lateral lesion. There is centripetal filling of the lesion on delayed images. Normal gallbladder and extrahepatic biliary system. Normal spleen. Normal pancreas. Normal bilateral adrenal glands. No acute findings of the right kidney. No acute findings of the left kidney. Normal visualized stomach. Normal small intestine. Stool throughout the colon. The appendix is visualized and appears normal. There are calcifications of the abdominal aorta. This is consistent for atherosclerotic disease. There is NO abdominal aortic aneurysm. Vascular workup can be obtained based on clinical correlation. Normal inferior vena cava. Subcentimeter mesenteric lymph nodes. Normal urinary bladder. There is a lipomatous lesion of the right gluteus muscle. Normal abdominal wall. There are diffuse degenerative changes of the visualized lumbar spine. CT/Abdomen/Pelvis WITH Contrast IMPRESSION: (NOT LISTED IN ORDER OF SIGNIFICANCE) Two hypodensities of the right lobe of the liver. More medial lesion is consistent for a cyst. The more lateral lesion is compatible with a benign hepatic hemangioma. There is a lipomatous lesion of the right gluteus muscle. MRI can better evaluate. Other findings as above. Electronically Signed: Manolo Todd MD at 15:31 EDT ,
[2022-11-09 15:30] LABS: CREATININE FINGERSTICK 0.9 mg/dL (0.70-1.30); EGFR FINGERSTICK > 60.0000 mL/min (>60)
== END | disposition home or self-care (01) ==
LOC: CT 14:56
PROVIDERS: PCP Family Medicine; Visit Provider Family Medicine
DX: Z01.812 Encounter for preprocedural laboratory examination (principal); R10.9 Unspecified abdominal pain; R93.2 Abnormal findings on diagnostic imaging of liver and biliary tract
CPT/HCPCS: 74177; Q9967

== ENCOUNTER → 2022-11-20 | Outpatient (CLI) | payer MEDICARE, OTHER, SELFPAY ==
[2022-11-20 12:04] LABS: PSA,Total - Annual Screen 0.02 ng/mL (0.00-4.00)
== END | disposition home or self-care (01) ==
LOC: LAB 11:29
PROVIDERS: PCP Family Medicine
DX: R97.21 Rising PSA following treatment for malignant neoplasm of prostate (principal); C61 Malignant neoplasm of prostate; Z12.5 Encounter for screening for malignant neoplasm of prostate
CPT/HCPCS: 36415; 84153; G0103

== ENCOUNTER → 2023-01-10 | Outpatient (CLI) | payer MEDICARE, OTHER, SELFPAY ==
[2023-01-10 11:58] LABS: AST(SGOT) 29 U/L (15-37); Alanine Aminotransfer ALT/SGPT 28 U/L (16-61); Albumin, Serum 3.7 g/dL (3.2-5.0); Alkaline Phosphatase 67 U/L (45-117); Bilirubin, Direct 0.19 mg/dL (0.00-0.30); Cholesterol 168 mg/dL (200); Globulin 3.4 g/dL (2.2-4.2); High Density Lipoprotein 51 mg/dL; Protein, Total 7.1 g/dL (6.4-8.2); Triglycerides 128 mg/dL; Very Low Density Lipoprotein 26 mg/dL (5-40)
== END | disposition home or self-care (01) ==
LOC: LAB 11:13
PROVIDERS: PCP Family Medicine; Referring Provider Internal Medicine Cardiovascular Disease; Visit Provider Internal Medicine Cardiovascular Disease
DX: E78.5 Hyperlipidemia, unspecified (principal)
CPT/HCPCS: 36415; 80061; 80076

== ENCOUNTER → 2023-03-15 | Outpatient (CLI) | payer MEDICARE, OTHER, SELFPAY ==
[2023-03-15 16:26] LABS: PSA,Total- Diagnostic 0.03 ng/mL (0.0-4.0)
== END | disposition home or self-care (01) ==
PROVIDERS: PCP Family Medicine
DX: C61 Malignant neoplasm of prostate (principal); R97.21 Rising PSA following treatment for malignant neoplasm of prostate
CPT/HCPCS: 36415; 84153

== ENCOUNTER → 2023-06-19 | Outpatient (CLI) | payer MEDICARE, OTHER, SELFPAY ==
[2023-06-19 15:08] LABS: Hematocrit 46.2 % (40-54); Hemoglobin 15.7 g/dL (13.0-16.5); Mean Corpuscular Hgb 31.3 pg (27.0-32.0); Mean Corpuscular Volume 92.2 fL (80-94); Mean Platelet Vol. 9.3 fl (6.2-12.0); Platelet Count 198 K/mm3 (150-450); RBC Distribution Width CV 13.1 % (11.6-14.6); RBC Distribution Width SD 44.2 fl (35.1-43.9); Red Blood Count 5.01 M/mm3 (4.6-6.2); White Blood Count 7.1 K/mm3 (4.4-11.0)
[2023-06-19 15:20] LABS: Anion Gap 3 (5-15); BUN 18 mg/dL (7-18); BUN/Creat Ratio 18.6 RATIO (10-20); Calcium,Total 9.1 mg/dL (8.5-10.1); Chloride 108 mmol/L (98-107); Creatinine, Serum 0.97 mg/dL (0.70-1.30); EST Glomerular Filtration Rate 81 mL/min (>60); Est Glom Filt Rate - Afr Amer 98 mL/min (>60); Glucose 101 mg/dL (74-106); Sodium Level 137 mmol/L (136-145)
== END | disposition home or self-care (01) ==
PROVIDERS: PCP Family Medicine; Referring Provider Nurse Practitioner Gerontology; Visit Provider Nurse Practitioner Gerontology
DX: R55 Syncope and collapse (principal); I25.118 Atherosclerotic heart disease of native coronary artery with other forms of angina pectoris; R40.4 Transient alteration of awareness; R42 Dizziness and giddiness
CPT/HCPCS: 36415; 80048; 85027

== ENCOUNTER → 2023-06-21 | Outpatient (CLI) | payer MEDICARE, OTHER, SELFPAY | END | disposition home or self-care (01) | LOC: PSN 09:05 | PROVIDERS: PCP Family Medicine; Referring Provider Nurse Practitioner Gerontology; Visit Provider Nurse Practitioner Gerontology | DX: R40.4 Transient alteration of awareness (principal); I25.118 Atherosclerotic heart disease of native coronary artery with other forms of angina pectoris; R55 Syncope and collapse; R42 Dizziness and giddiness | CPT/HCPCS: 93225; 93226 ==

== ENCOUNTER → 2023-09-03 | Outpatient (CLI) | payer MEDICARE, OTHER, SELFPAY ==
[2023-09-03 14:19] LABS: PSA,Total- Diagnostic 0.03 ng/mL (0.0-4.0)
== END | disposition home or self-care (01) ==
LOC: LAB 13:41
PROVIDERS: PCP Family Medicine
DX: C61 Malignant neoplasm of prostate (principal); R97.21 Rising PSA following treatment for malignant neoplasm of prostate
CPT/HCPCS: 36415; 84153

== ENCOUNTER → 2024-02-05 | Outpatient (CLI) | payer MEDICARE, OTHER, SELFPAY ==
[2024-02-05 07:45] LABS: Absolute Lymphocyte Count 1.58 X10^3/uL (0.83-4.51); Absolute Neutrophil Count 4.3 X10^3/uL (2.0-7.7); Basophil# 0.04 X10^3/uL; Basophil% 0.6 % (0-1); Eosinophils% 1.5 % (0-5); Hematocrit 43.1 % (40-54); Hemoglobin 14.6 g/dL (13.0-16.5); Lymphocyte # 1.58 X10^3/ul (0.83-4.51); Lymphocyte % 24.3 % (19-41); Mean Corp Hgb Conc 33.9 g/dL (32-36); Mean Corpuscular Hgb 30.5 pg (27.0-32.0); Mean Corpuscular Volume 90.2 fL (80-94); Mean Platelet Vol. 9.9 fl (6.2-12.0); Monocyte# 0.52 X10^3/uL; NRBC Flagged by Analyzer 0 % (0-5); Neutrophil # 4.25 X10^3/uL (2.7-7.7); Neutrophil % 65.3 % (47-70); Platelet Count 180 K/mm3 (150-450); RBC Distribution Width CV 13.2 % (11.6-14.6); RBC Distribution Width SD 43.6 fl (35.1-43.9); Red Blood Count 4.78 M/mm3 (4.6-6.2); White Blood Count 6.5 K/mm3 (4.4-11.0)
[2024-02-05 08:19] LABS: AST(SGOT) 39 U/L (15-37); Alanine Aminotransfer ALT/SGPT 30 U/L (16-61); Albumin, Serum 3.7 g/dL (3.2-5.0); Alkaline Phosphatase 74 U/L (45-117); Anion Gap 5 (5-15); BUN 16 mg/dL (7-18); BUN/Creat Ratio 15.5 RATIO (10-20); Calcium,Total 9.1 mg/dL (8.5-10.1); Chloride 107 mmol/L (98-107); Cholesterol 188 mg/dL (200); Creatinine, Serum 1.03 mg/dL (0.70-1.30); EST Glomerular Filtration Rate 75 mL/min (>60); Est Glom Filt Rate - Afr Amer 91 mL/min (>60); Globulin 3.7 g/dL (2.2-4.2); Glucose 99 mg/dL (74-106); High Density Lipoprotein 50 mg/dL; Potassium 3.8 mmol/L (3.5-5.1); Protein, Total 7.4 g/dL (6.4-8.2); Sodium Level 138 mmol/L (136-145); Triglycerides 199 mg/dL; Very Low Density Lipoprotein 40 mg/dL (5-40)
== END | disposition home or self-care (01) ==
LOC: LAB 07:21
PROVIDERS: PCP Family Medicine; Referring Provider Family Medicine; Visit Provider Family Medicine
DX: I10 Essential (primary) hypertension (principal)
CPT/HCPCS: 36415; 80053; 80061; 85025

== ENCOUNTER → 2024-03-03 | Outpatient (CLI) | payer MEDICARE, OTHER, SELFPAY ==
[2024-03-05 13:08] LABS: PSA, Free <0.02 ng/mL; PSA, Free % <46.5 % (.); PSA, Total Ultrasensitive 0.043 ng/mL (0.000-4.000)
== END | disposition home or self-care (01) ==
LOC: LAB 14:16
PROVIDERS: PCP Family Medicine
DX: C61 Malignant neoplasm of prostate (principal); R97.21 Rising PSA following treatment for malignant neoplasm of prostate
CPT/HCPCS: 36415; 84153; 84154

== ENCOUNTER → 2024-04-14 | Outpatient (CLI) | payer MEDICARE, OTHER, SELFPAY ==
--- NOTE | 2024-04-14 07:02 | ECHOD_ITS ---
Reason For Study: CAD/ASHD Procedure This was a 2D Doppler, Color Flow transthoracic echocardiogram. Exam performed in department. Left Ventricle Normal LV size. Left ventricular systolic function is normal. The left ventricular ejection fraction is 60 %. Stage 1 diastolic dysfunction. No regional wall motion abnormalities noted. Right Ventricle Normal RV size. Normal systolic function. Atria Normal left atrium. Normal right atrium. Mitral Valve Normal mitral valve. Tricuspid Valve Normal tricuspid valve. Mild tricuspid valve insufficiency. Aortic Valve Trisinus/trileaflet aortic valve. Mild (1+) eccentric aortic valve insufficiency. Pulmonic Valve Normal pulmonic valve. Great Vessels Normal aortic root. The pulmonary artery is normal size. Normal inferior vena cava. Pericardium/Pleural No pericardial effusion. MMode/2D Measurements & Calculations LVIDd: 4.8 cm IVSd: 1.6 cm Ao root diam: 3.2 cm LVIDs: 3.2 cm LVPWd: 1.1 cm LA dimension: 4.2 cm RVDd: 4.3 cm FS: 34.8 % LAV(MOD-bp): 68.8 ml LVAd ap4: 31.3 cm2 SV(MOD-sp4): 63.2 ml LAV(MOD-bp) Indexed: 33.3 ml/m2 LVLd ap4: 7.9 cm LAV(MOD-sp2): 70.5 ml EDV(MOD-sp4): 103.1 ml LAV(MOD-sp4): 62.5 ml EDV(sp4-el): 105.4 ml LVAs ap4: 17.6 cm2 LVLs ap4: 6.6 cm ESV(MOD-sp4): 39.9 ml ESV(sp4-el): 40.1 ml EF(MOD-sp4): 61.3 % EF(sp4-el): 61.9 % SV(sp4-el): 65.3 ml LA A4 area: 20.9 cm2 RA A4 area: 17.4 cm2 TAPSE: 2.1 cm Time Measurements MV dec time: 0.21 sec Doppler Measurements & Calculations MV E max ld: 47.8 cm/sec Lat Peak E' Ld: 4.9 cm/sec Med Peak E' Ld: 7.0 cm/sec MV A max ld: 63.2 cm/sec E/E' lat: 9.8 E/E' med: 6.8 MV E/A: 0.76 MV V2 max: 59.3 cm/sec MV P1/2t max ld: 53.2 cm/sec Ao V2 max: 113.0 cm/sec MV max P.4 mmHg MV P1/2t: 67.4 msec Ao max P.1 mmHg MV V2 mean: 26.5 cm/sec MV dec slope: 231.4 cm/sec2 Ao V2 mean: 72.1 cm/sec MV mean P.36 mmHg Ao mean P.5 mmHg MV V2 VTI: 23.1 cm MVA(P1/2t): 3.3 cm2 Ao V2 VTI: 26.5 cm AV (velocity ratio): 0.85 AI max ld: 521.9 cm/sec LV V1 max: 99.7 cm/sec MR max ld: 568.8 cm/sec AI max P.0 mmHg LV V1 max P.0 mmHg MR max P.4 mmHg AI dec slope: 206.6 cm/sec2 LV V1 mean P.3 mmHg AI P1/2t: 739.7 msec LV V1 mean: 70.6 cm/sec LV V1 VTI: 22.5 cm PA V2 max: 141.6 cm/sec TR max ld: 221.6 cm/sec PA max PG (full): 6.4 mmHg TR max P.6 mmHg ECHO/Echo Complete Interpretation Summary Normal LV size. Left ventricular systolic function is normal. The left ventricular ejection fraction is 60 %. Stage 1 diastolic dysfunction. Mild (1+) eccentric aortic valve insufficiency. Ordering Physician: Hector Yuen Referring Physician: Hector Yuen Performed By: Clayton Case RCS
--- NOTE | 2024-04-14 09:55 | STRESSREP ---
Stress Test Report Exercise myocardial perfusion stress test. 74-year-old man with a history of coronary artery disease Stress protocol: Resting EKG demonstrates sinus bradycardia with a rate of 45 bpm resting blood pressure is 140/82 mmHg. The patient exercised according to the regular [facility]e protocol for a total duration of 12 minutes attaining a maximum heart rate of 137 bpm which was 92% of maximum predicted heart rate; the maximum workload was 13.4 metabolic equivalents. At rest there were no ST or T wave changes noted to suggest ischemia and at peak exercise upsloping ST changes only were noted which did not meet the criteria for ischemia. No clinical angina was noted the test was terminated due to the target heart rate being achieved/fatigue. The peak blood pressure was 200/90 mmHg. Rate-pressure product was 24,200. Myocardial perfusion protocol. 14.1 mCi of technetium 99m sestamibi was injected at rest. The patient exercised according to regular [facility]e protocol for total duration of 12 minutes and at peak exercise 44.3 mCi of technetium 99m sestamibi was injected stress images were obtained stress and rest images were reconstructed in comparing the short axis vertical long and horizontal long axis. Gated images were also obtained. Perfusion SPECT analysis: Review of the stress images demonstrate normal uptake of tracer noted in all areas of the myocardium. The resting images similarly demonstrate normal uptake of tracer noted in all areas of the myocardium. No areas of reversibility are noted to suggest ischemia no previous infarct was noted. Gated SPECT analysis: The gated ejection fraction is 67%. Conclusion: Normal exercise myocardial perfusion stress test at a high workload Preserved ejection fraction.
== END | disposition home or self-care (01) ==
PROVIDERS: PCP Family Medicine; Referring Provider Internal Medicine Cardiovascular Disease; Visit Provider Internal Medicine Cardiovascular Disease
DX: I25.118 Atherosclerotic heart disease of native coronary artery with other forms of angina pectoris (principal)
CPT/HCPCS: 78452; 93017; 93306; A9500; A4216

== ENCOUNTER → 2024-08-17 | Outpatient (CLI) | payer MEDICARE, OTHER, SELFPAY ==
--- NOTE | 2024-08-17 08:59 | RAD_ITS ---
STUDY: X-RAY - LEFT FOOT CLINICAL: Male, 74 years old. Left foot injury, of mid arch. TECHNIQUE: 3 views of the left foot. COMPARISON: None. FINDINGS: Normal talus, calcaneus, and tarsal bones. Normal visualized subtalar, talonavicular, calcaneocuboid, tarsal and tarsometatarsal articulations. Normal metatarsi. Normal metatarsophalangeal joint of the great toe. Normal tibial and fibular sesamoid bones. Normal interphalangeal joint of the great toe. Normal phalanges of the great toe. Normal second through fifth metatarsophalangeal joints. Normal interphalangeal joints and phalanges of the lesser toes. There is no demonstrated fracture. There are atherosclerotic calcifications. RAD/Foot min 3 Views IMPRESSION: No demonstrated fracture. Electronically Signed: Zhao Jackson MD at 11:20 EST ,
== END | disposition home or self-care (01) ==
LOC: MTRAD 08:40
PROVIDERS: PCP Family Medicine; Referring Provider Family Medicine; Visit Provider Family Medicine
DX: M79.672 Pain in left foot (principal)
CPT/HCPCS: 73630

== ENCOUNTER → 2024-08-26 | Outpatient (CLI) | payer MEDICARE, OTHER, SELFPAY ==
--- NOTE | 2024-08-26 07:43 | CT_ITS ---
STUDY: CT ABDOMEN WITH AND WITHOUT CONTRAST REASON FOR EXAM: Male, 74 years old. Liver disease, unspecified RADIATION DOSAGE (If Supplied By Facility): CTDIvol = ( 16.23 ) mGy, DLP = ( 1440.87 ) mGycm TECHNIQUE: Transaxial images were obtained pre and post I.V. administration of IV 100mL Isovue-[id number], and with oral contrast. Sagittal and coronal images were reconstructed. Individualized dose optimization techniques were used for this CT. COMPARISON: Comparison is made with prior study dated November 09, 2022. FINDINGS: Stable mild increased linear markings at the lung bases suggests mild basilar scarring. Coronary artery calcification. There is decreased attenuation of the liver consistent with steatosis. Normal gallbladder and extrahepatic biliary system. Normal spleen. Normal pancreas. Normal bilateral adrenal glands. Normal right kidney. Normal left kidney. Normal visualized stomach. Normal small intestine. Normal colon. The appendix is visualized and appears normal. Normal abdominal aorta. Normal inferior vena cava. Normal retroperitoneum. 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 Disc space narrowing at the L5-S1 level. Stable 6.2 mm rounded sclerosis seen in the anterior upper aspect of the L4 vertebra. CT/Abdomen W/WO IV Contrast IMPRESSION: Stable mild scarring at the lung bases. Fatty infiltration of liver. 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 Electronically Signed: Lucas Romano MD at 14:50 EST ,
== END | disposition home or self-care (01) ==
LOC: CT 07:40
PROVIDERS: PCP Family Medicine; Referring Provider Family Medicine; Visit Provider Family Medicine
DX: K76.9 Liver disease, unspecified (principal)
CPT/HCPCS: 74170; Q9967

== ENCOUNTER → 2024-09-04 | Outpatient (CLI) | payer MEDICARE, OTHER, SELFPAY ==
[2024-09-07 13:06] LABS: PSA, Free <0.02 ng/mL; PSA, Free % <39.2 % (.); PSA, Total Ultrasensitive 0.051 ng/mL (0.000-4.000)
== END | disposition home or self-care (01) ==
LOC: LAB 14:41
PROVIDERS: PCP Family Medicine; Referring Provider Urology; Visit Provider Urology
DX: C61 Malignant neoplasm of prostate (principal)
CPT/HCPCS: 36415; 84153; 84154

== ENCOUNTER → 2025-01-19 | Outpatient (CLI) | payer MEDICARE, OTHER, SELFPAY ==
[2025-01-19 10:47] LABS: Absolute Lymphocyte Count 1.82 X10^3/uL (0.83-4.51); Absolute Neutrophil Count 3.7 X10^3/uL (2.0-7.7); Basophil# 0.05 X10^3/uL; Basophil% 0.8 % (0-1); Eosinophil# 0.07 X10^3/uL; Eosinophils% 1.1 % (0-5); Hematocrit 43.2 % (40-54); Hemoglobin 14.8 g/dL (13.0-16.5); Lymphocyte # 1.82 X10^3/ul (0.83-4.51); Lymphocyte % 29.5 % (19-41); Mean Corp Hgb Conc 34.3 g/dL (32-36); Mean Corpuscular Hgb 30.6 pg (27.0-32.0); Mean Corpuscular Volume 89.3 fL (80-94); Mean Platelet Vol. 9.9 fl (6.2-12.0); Monocyte# 0.46 X10^3/uL; Monocyte% 7.5 % (0-10); NRBC Flagged by Analyzer 0 % (0-5); Neutrophil # 3.74 X10^3/uL (2.7-7.7); Neutrophil % 60.6 % (47-70); Platelet Count 177 K/mm3 (150-450); RBC Distribution Width CV 13.5 % (11.6-14.6); RBC Distribution Width SD 44.1 fl (35.1-43.9); Red Blood Count 4.84 M/mm3 (4.6-6.2); White Blood Count 6.2 K/mm3 (4.4-11.0)
[2025-01-19 11:32] LABS: ALB/GLOB Ratio 1.5 RATIO (0.9-2.4); AST(SGOT) 32 U/L (<=37); Alanine Aminotransfer ALT/SGPT 22 U/L (<=46); Albumin, Serum 4.2 g/dL (3.4-4.8); Alkaline Phosphatase 62 U/L (40-129); Anion Gap 10 (5-15); BUN 15 mg/dL (4-19); BUN/Creat Ratio 16.2 RATIO (10-20); Calcium,Total 9.6 mg/dL (7.6-11.0); Carbon Dioxide 26.1 mmol/L (21.0-32.0); Chloride 104 mmol/L (98-108); Cholesterol 173 mg/dL (<=200); Creatinine, Serum 0.92 mg/dL (0.70-1.20); EST Glomerular Filtration Rate 88 (>60); Globulin 2.9 g/dL (2.2-4.2); Glucose 98 mg/dL (70-99); High Density Lipoprotein 50 mg/dL; Low Density Lipoprotein Calc. 96 mg/dL; Potassium 4.3 mmol/L (3.3-5.1); Protein, Total 7.1 g/dL (5.9-8.4); Sodium Level 140 mmol/L (133-145); Total Bilirubin 0.49 mg/dL (0.00-1.30); Triglycerides 138 mg/dL; Very Low Density Lipoprotein 28 mg/dL (5-40); cholesterol:hdl ratio screen 3.47
--- OUTSIDE RECORDS SUMMARY | 2025-01-19 21:50 | XMS RPT_ITS | CCD ---
Author Organization [facility] Care Team Providers Care Role Player Name Role Phone Kannan Carlton Primary Care Provider [phone] Dr. Zaid Kirby Primary Care Provider Dr. Zaid Kirby Referring Provider Dr. Hector Yuen Attending Provider PROVIDER, UNKNOWN Referring Unavailable Kannan Carlton Primary Care Unavailable Gina Baker Attending Unavailable Mateo Carlton Primary Care Provider Anupam MOSQUEDA Patel Unavailable [phone] Fatemeh Griffith DO Primary Care Provider Anupam MOSQUEDA Patel Unavailable Dilma Montes MD Primary Care Provider ANUPAM PATEL Attending Unavailable RINKU, CHALON Primary Care Unavailable NETHING, PATEL Attending Unavailable RINKU, CHALON Primary Care Unavailable Alpa, Dardanelle Attending Unavailable Rinku, Chalon Primary Care Unavailable Fatemeh Griffith Referring Unavailable Rinku, Chalon Primary Care Unavailable Florian Doan Attending Unavailable Alpa, Dardanelle Attending Unavailable Alpa, Dardanelle Referring Unavailable Rinku, Chalon Primary Care Unavailable Alpa, Dardanelle Consulting Unavailable Rinku, Chalon Primary Care Unavailable Referred, Self Attending Unavailable Referred, Self Referring Unavailable Rinku, Chalon Referring Unavailable Rinku, Chalon Primary Care Unavailable Rinku, Chalon Attending Unavailable Rinku, Chalon Primary Care Unavailable Rinku, Chalon Attending Unavailable Rinku, Chalon Referring Unavailable Rinku, Chalon Primary Care Unavailable Nething, Patel Attending Unavailable Nething, Patel Referring Unavailable Rinku, Chalon Referring Unavailable Rinku, Chalon Primary Care Unavailable Dilma Montes Attending Unavailable Dilma Montes Primary Care Unavailable Sarah MCKEON Attending Unavailable Hector Yuen Attending Unavailable Hector Yuen Referring Unavailable Dilma Montes Primary Care Unavailable Allergies Allergy Classification Reported Allergen(s) Allergy Type Date of Onset Reaction(s) Facility (20 sources) Acetaminophen Drug Allergy 8 Diarrhea [place], [place] (15 sources) atorvastatin Drug Allergy [address] [facility] (2 sources) Acetaminophen Drug Allergy 7 Diarrhea [facility] (2 sources) atorvastatin Drug Allergy 0 Other [facility] (1 source) Acetaminophen Drug Allergy 4 [facility] (1 source) atorvastatin Drug Allergy 4 [facility] Medications Current Medications Medication Drug Class(es) Dates Sig (Normalized) Sig (Original) [id number] 200 actuat albuterol 0.09 mg/actuat metered dose inhaler (15 sources) beta2-Adrenergic Agonist Start: 01-23-2022 Albuterol Sulfate Active 2 INH INHALATION EVERY 6 HOURS January 22, 2022 11:00pm aspirin 81 mg delayed release oral tablet (20 sources) Platelet Aggregation Inhibitor, Nonsteroidal Anti-inflammatory Drug Start: 04-01-2019 take 1 tablet by mouth once daily Aspirin (Adult Aspirin Regimen) 81 mg tablet,delayed release (DR/EC) Active 81 MG PO DAILY March 31, 2019 11:00pm take 1 capsule by mouth once kolby ly Aspirin 81 MG capsule Take 81 mg by mouth daily. Active b complex vitamins capsule (20 sources) take 1 capsule by mo [facility] once daily b complex vitamins capsule Take 1 capsule by mouth daily. Active take 1 capsule by mouth once kolby ly b complex vitamins capsule Take 1 capsule by mouth daily. 0 Active take 1 capsule by mouth once kolby ly b complex vitamins capsule Take 1 capsule by mouth daily 0 Active cholecalciferol 0.05 mg oral capsule (20 sources) Vitamin D Start: 10-18-2018 take 2000 [IU] by mouth once daily Cholecalciferol (Vitamin D3) Active 2000 UNIT PO DAILY October 18, 2018 12:00am take 2000 mg by mouth once daily Cholecalciferol (D3 VITAMIN PO) Take 2,000 mg by mouth daily 0 Active cholecalciferol (Vitamin D3) 200 Unit tablet split tablet (6 sources) cholecalciferol (Vitamin D3) 200 Unit tablet split tablet Take 2,000 mg by mouth daily. Active cholecalciferol (Vitamin D3) 200 Unit tablet split tablet Take 2,000 mg by mouth daily. 0 Active cinnamon bark 500 mg oral capsule (15 sources) Start: 05-02-2020 take 600 mg by mouth once daily Cinnamon Bark Active 600 MG PO DAILY May 01, 2020 11:00pm Coenzyme Q10 (CO Q-10 PO) (20 sources) Coenzyme Q10 (CO Q-10 PO) Take 200 mg by mouth daily 0 Active docosahexaenoic acid 120 mg / eicosapentaenoic acid 180 mg oral capsule (7 sources) omega-3 (Fish Oi l) 1000 MG capsule Take by mouth daily. Active Sinclair-3 1000 MG CAPS Take by mouth 0 Active escitalopram 10 mg oral tablet (20 sources) Serotonin Reuptake Inhibitor Start: 01-21-2023 take 20 mg by mouth once daily Escitalopram Oxalate Active 20 MG PO DAILY 180 90 January 21, 2023 9:07am Start: 12-20-2022 escitalopram ( Lexapro) 20 MG tablet daily. 12/20/2022 Active Start: 10-18-2018 End: 04-01-2019 Escitalopram Oxalate Discont inued PO 90 90 October 18, 2018 12:00am April 01, 2019 1:51pm Start: 07-01-2018 End: 01-21-2023 take 10 mg by mouth once daily Escitalopram Oxalate Di scontinued 10 MG PO DAILY 90 90 April 01, 2019 1:49pm January 21, 2023 9:08am Fluticasone Furoate-Vilanterol (BREO ELLIPTA IN) (20 sources) take 1 puff(s) by inhalation once daily Fluticasone Furoate-Vilanterol (BREO ELLIPTA IN) Inhale 1 puff into the lungs daily 0 Active gabapentin 300 mg oral capsule (20 sources) Anti-epileptic Agent Start: 2018 gabapentin (Neurontin) 300 MG capsule 10/10/2022 Active Garlic (15 sources) Non-Standardized Food Allergenic Extract Start: 2019 take 1200 mg by mouth once daily Garlic Active 1200 MG PO DAILY May 01, 2020 11:00pm Start: 05-02-2020 take 1200 mg by mouth once kolby ly Garlic Active 1200 MG PO DAILY May 02, 2020 12:00am lisinopril 10 mg oral tablet (20 sources) Angiotensin Converting Enzyme Inhibitor Start: 12-17-2022 lisinopril 10 MG tablet Take by mouth daily. 12/17/2022 Active Start: 10-18-2018 End: 04-01-2019 Lisinopril Discontinued PO 1 80 90 October 18, 2018 12:00am April 01, 2019 1:51pm Start: 02-17-2018 End: 04-01-2019 take 10 mg by mouth twice daily Lisinopril Active 10 MG PO TWICE A DAY 180 90 April 01, 2019 1:48pm [facility] Natural Products (ESSIAC TONIC) CAPS (20 sources) take 1 tablet by mouth twice daily Misc Natural Products (ESSIAC TONIC) CAPS Take 1 tablet by mouth 2 times daily 0 Active omega-3 acid ethyl esters (shelter) 1000 mg oral capsule (20 sources) Sinclair-3 1000 MG CAPS Take by mouth 0 Active omeprazole 20 mg delayed release oral capsule (6 sources) Proton Pump Inhibitor Start: 12-28-2022 omeprazole (PriLOSEC) [address] capsule daily. 12/28/2022 Active rOPINIRole 0.25 mg oral tablet (20 sources) Nonergot Dopamine Agonist Start: 05-02-2020 rOPINIRole (Requip) 0.25 MG tablet Nightly. 12/12/2022 Active simvastatin 40 mg oral tablet (20 sources) HMG-CoA Reductase Inhibitor Start: 05-02-2020 End: 01-21-2023 simvastatin (Zocor) 40 MG tablet daily. 09/18/2022 Active Start: 05-02-2020 End: 01-21-2023 take 40 mg by mouth twice daily Simvastatin Discontinu ed 40 MG PO TWICE A DAY January 21, 2023 9:08am January 21, 2023 9:16am Start: 02-17-2018 End: 05-02-2020 take 20 mg by mouth at bedtime Simvastatin Discontinue d 20 MG PO AT BEDTIME 90 90 April 01, 2019 1:48pm May 02, 2020 10:04am ubidecarenone 300 mg oral capsule (15 sources) Start: 04-01-2019 Coenzyme Q10 ( Co Q-10) 300 mg capsule Active 300 MG PO DAILY March 31, 2019 11:00pm ubidecarenone 100 mg / vitamin e 5 unt oral capsule (6 sources) coenzyme Q-10 (Q-SORB) 100 MG capsule Take 200 mg by mouth daily. Active Vitamin B Complex (B Complex 1) tablet (15 sources) Start: 10-18-2018 take 1 tablet by mouth once daily Vitamin B Complex (B Complex 1) tablet Active 1 TABLET PO DAILY October 18, 2018 12:00am Start: 10-18-2018 take 1 tablet by mouth once da rey Vitamin B Complex (B Complex 1) tablet Active 1 TABLET PO DAILY October 18, 2018 1:00am vitamin e 180 mg oral capsule (15 sources) Start: 04-01-2019 take 400 [IU] by mouth once daily Vitamin E (Dl, Acetate) Active 400 UNIT PO DAILY March 31, 2019 11:00pm Completed/Discontinued Medications Medication Drug Class(es) Dates Sig (Normalized) Sig (Original) ascorbic acid 500 mg oral capsule (15 sources) Vitamin C Start: 10-18-2018 End: 04-01-2019 Ascorbic Acid (Vitamin C) Discontinued MG PO October 18, 2018 12:00am April 01, 2019 1:48pm clopidogrel 75 mg oral tablet (15 sources) P2Y12 Platelet Inhibitor Start: 04-25-2020 End: 04-27-2021 take 75 mg by mouth once daily Clopidogrel Discontinued 75 MG PO DAILY April 24, 2020 11:00pm April 27, 2021 8:33am fenofibrate 145 mg oral tablet (14 sources) Peroxisome Proliferator Receptor alpha Agonist Start: 03-02-2022 End: 03-13-2022 take 145 mg by mouth once daily Fenofibrate Nanocrystallized Discontinued 145 MG PO DAILY March 01, 2022 11:00pm March 13, 2022 1:22pm 30 actuat fluticasone furoate 0.1 mg/actuat / vilanterol 0.025 mg/actuat dry powder inhaler (20 sources) Corticosteroid, beta2-Adrenergic Agonist Start: 04-01-2019 End: 01-23-2022 Fluticasone Furoate-Vilanterol (Breo Ellipta) 100-25 mcg/dose blister with device Discontinued 1 INH INHALATION DAILY March 31, 2019 11:00pm January 23, 2022 12:37pm Start: 08-16-2018 BREO ELLIPTA 2 00-25 MCG/INH AEPB Meza Polypody (15 sources) Start: 05-02-2020 End: 04-27-2021 take 240 mg by mouth once daily Meza Polypody Discontinued 240 MG PO DAILY May 01, 2020 11:00pm April 27, 2021 8:34am Start: 05-02-2020 End: 04-27-2021 take 240 mg by mouth once daily Meza Polypody Discontinued 240 MG PO DAILY May 02, 2020 12:00am April 27, 2021 9:34am LORazepam 0.5 mg oral tablet (20 sources) Benzodiazepine Start: 03-03-2018 End: 01-21-2023 take 0.5 mg by mouth once daily Lorazepam Discontinued 0.5 MG PO DAILY January 23, 2022 12:38pm January 21, 2023 9:08am 24 hr niacin 1000 mg extended release oral tablet (20 sources) Nicotinic Acid Start: 04-01-2019 End: 04-01-2019 take 1000 mg by mouth at bedtime Niacin Discontinued 1000 MG PO AT BEDTIME March 31, 2019 11:00pm April 01, 2019 2:07pm take 2 tablets by mouth once kolby ly niacin 500 MG tablet Take 1,000 mg by mouth daily. Active Problems Active Problems Problem Classification Problem Date Documented Da te Episodic/Chronic Cancer of prostate (20 sources) Malignant tumor of prostate; Translations: [Malignant neoplasm of prostate] Onset: 05-08-2018 06-16-2018 Chronic Conditions associated with dizziness or vertigo (15 sources) Lightheadedness; Translations: [Dizziness and giddiness] 01-23-2022 Episodic Coronary atherosclerosis and other heart disease (20 sources) Coronary atherosclerosis; Translations: [Atherosclerotic heart disease of [place] coronary artery with other forms of angina pectoris] Onset: 05-04-2024 Chronic Disorders of lipid metabolism (18 sources) Hyperlipidemia; Translations: [Hyperlipidemia, unspecified] Chronic Essential hypertension (19 sources) Essential hypertension; Translations: [Essential (primary) hypertension] Onset: 02-11-2024 Chronic Genitourinary symptoms and ill-defined conditions (4 sources) Genuine stress incontinence; Translations: [Stress incontinence (female) (male)] Onset: 03-19-2024 09-19-2023 Chronic Hyperplasia of prostate (20 sources) Benign prostatic hypertrophy with outflow obstruction; Translations: [Benign prostatic hyperplasia with lower urinary tract symptoms] Onset: 03-04-2018 03-04-2018 Chronic Other bone disease and musculoskeletal deformities (20 sources) Segmental and somatic dysfunction; Translations: [Segmental and somatic dysfunction of cervical region] 05-27-2021 Episodic Other liver diseases (1 source) Liver disease, unspecified; Translations: [Liver disease, unspecified] Onset: 09-17-2024 Chronic Other lower respiratory disease (15 sources) Dyspnea; Translations: [Dyspnea, unspecified] 05-27-2021 Episodic Other male genital disorders (7 sources) Erectile dysfunction following radical prostatectomy; Translations: [Erectile dysfunction following radical prostatectomy] Onset: 04-26-2022 05-24-2022 Chronic Residual codes; unclassified (2 sources) Unresponsive ; Translations: [Transient alteration of awareness] 06-19-2023 Episodic Residual codes; unclassified (1 source) History of external beam radiation therapy; Translations: [Personal history of irradiation] 09-24-2024 Episodic Residual codes; unclassified (2 sources) Personal history of irradiation; Translations: [Personal history of irradiation] Onset: 09-24-2024 Episodic Spondylosis; intervertebral disc disorders; other back problems (15 sources) Backache; Translations: [Dorsalgia, unspecified] 05-27-2021 Episodic Syncope (2 sources) Syncope; Translations: [Syncope and collapse] 06-19-2023 Episodic Past or Other Problems Problem Classification Problem Date Documented Da te Episodic/Chronic Other connective tissue disease (1 source) Pain in left foot; Translations: [Pain in left foot] Onset: 09-10-2024 Episodic Other screening for suspected conditions (not mental disorders or infectious disease) (20 sources) Raised prostate specific antigen; Translations: [Thallium stress test abnormal] Onset: 03-04-2018 06-05-2019 Episodic Results Test Name Value Interpretation Reference Range Facility Office Visiton 09-24-2024 Follow-up visit [id number] Irvin Velasquez 1950 M Date Provider Department Center 09/24/2024 [id number] BO [facility] None Family History Family Status - Relation Status Age at Father Mother Level of Service:74141 [place] OFFICE/OUTPATIENT ESTABLISHED LOW MDM 20 MIN Reason for Visit and Comments: Prostate Cancer [309] - PSA prior Normal [facility] Progress Noteon 09-24-2024 Progress Note Patel Bo MD 09/24/2024 at 12:00 PM Office follow up PATIENT NAME: Italo Velasquez DATE OF : 1950 TODAY'S DATE: 09/24/2024 CHIEF COMPLAINT: Chief Complaint Patient presents with Prostate Cancer PSA prior Subjective: Mr. Velasquez is a 74 y.o. male who presents to the office for follow up of prostate cancer He did have robotic assisted laparoscopic radical prostatectomy and bilateral pelvic lymph node dissection 06/16/2018. Pathology from this was el[place] 3+4, pt3b, with a rising PSA. He completed salvage radiation. 08/2019 He has lost 20 lbs through diet and exercise He is voiding ok Denies hematuria Review of Systems Gastrointestinal: Negative for abdominal distention and abdominal pain. Genitourinary: Negative for difficulty urinating, flank pain, frequency and hematuria. Past Medical History: Past Medical History: Diagnosis Date Asthma Cancer (CMS/HCC) (HCC) 2017 prostate Hyperlipidemia Hypertension PIPE on CPAP Past Surgical History: Past Surgical History: Procedure Laterality Date COLONOSCOPY PROSTATECTOMY 06/16/2018 Robotic Assisted Laparoscopic Prostatectomy with Bilateral Pelvic Lymph Node Dissection Allergies: Acetaminophen and Atorvastatin Social History: Social History Socioeconomic History Marital status: Spouse name: Not on file Number of children: Not on file Years of education: Not on file Highest education level: Not on file Occupational History Not on file Tobacco Use Smoking status: Never Smokeless tobacco: Never Vaping Use Vaping status: Never Used Substance and Sexual Activity Alcohol use: No Drug use: No Sexual activity: Not Currently Partners: Female Comment: Other Topics Concern Not on file Social History Narrative Not on file Social Drivers of Health Financial Resource Strain: Not on file Food Insecurity: Not on file Transportation Needs: Not on file Physical Activity: Not on file Stress: Not on file Social Connections: Not on file Intimate Partner Violence: Not on file Housing Stability: Not on file Family History: Medications Prior to Admission medications Medication Sig Start Date End Date Taking? Authorizing Provider Aspirin 81 MG capsule Take 81 mg by mouth daily. Yes Historical Provider, b complex vitamins capsule Take 1 capsule by mouth daily. Yes Historical Provider, cholecalciferol (Vitamin D3) 200 Unit tablet split tablet Take 2,000 mg by mouth daily. Yes Historical Provider, coenzyme Q-10 (Q-SORB) 100 MG capsule Take 200 mg by mouth daily. Yes Historical Provider, escitalopram (Lexapro) 20 MG tablet daily. 12/20/22 Yes Historical Provider, gabapentin (Neurontin) 300 MG capsule 10/10/22 Yes Historical Provider, lisinopril 10 MG tablet Take by mouth daily. 12/17/22 Yes Historical Provider, niacin 500 MG tablet Take 1,000 mg by mouth daily. Yes Historical Provider, omega-3 (Fish Oil) 1000 MG capsule Take by mouth daily. Yes Historical Provider, omeprazole (PriLOSEC) [address] capsule daily. 12/28/22 Yes Historical Provider, rOPINIRole (Requip) 0.25 MG tablet Nightly. 12/12/22 Yes Historical Provider, simvastatin (Zocor) 40 MG tablet daily. 09/18/22 Yes Historical Provider, Vitals: BP 122/72 (BP Location: Left arm, Patient Position: Sitting, BP Cuff Size: Large adult) Pulse 76 Ht 5' 10 (1.778 m) Wt 181 lb (82.1 kg) BMI 25.97 kg/m? Physical Exam General: alert, appears stated age, and cooperative Abdomen: soft and nondistended Back: straight, CVA tenderness absent : defer exam Labs: WBC No results found for: WBC BMP No results found for: NA, K, CL, CO2, BUN, CREATININE, GLUCOSE, CALCIUM PSA No results found for: PSA UANo results found for: APPEARANCE, COLORU, LABSPEC, LABPH, URINE, GLUCOSEU, UROBILINOGEN, BILIRUBINUR, OCBU Review: PSA 09/04/24 0.05 PSA 03/05/24 0.04 PSA 09/03/23 0.03 PSA 03/15/23 0.01 PSA 10/23/22 0.02 PSA 11/20/22 0.02 Impression/Plan Diagnoses and all orders for this visit: Prostate cancer (HCC) - PSA, total and free; Future Rising PSA following treatment for malignant neoplasm of prostate History of external beam radiation therapy He is overall doing well Lost 20 lbs through exercise and diet changes PSA remains very low yet detectable. PSA increasing slowly over time He has been treated with RALP and salvage radiation. There are no further curative options. If PSA would rise drastically, or further then could consider PSMA testing, lifelong ADT Follow up in about 6 months (around 03/24/2025) for psa. Patel Bo MD 09/24/24 12:00 PM Normal [facility] PSA Total+%Freeon 09-07-2024 PSA, FREE <0.02 Normal N/A [facility] Comment on above: Result Comment: Roch rafael ECLIA methodology. Performed By: #### L 3110.0500 #### [facility] [address] [place], [address] PSA, FREE % <39.[address] [facility] Comment on above: Result Comment: The table below lists the probability of prostate cancer for men with non-suspicious MELISSA results and total PSA between 4 and 10 ng/mL, by patient age (Ángel et al, CLAUS 1998, 279:1542). % Free PSA 50-64 yr 65-75 yr 0.00-10.00% 56% 55% 10.01-15.00% 24% 35% 15.01-20.00% 17% 23% 20.01-25.00% 10% 20% >25.00% 5% 9% Please note: Ángel et al did not make specific recommendations regarding the use of percent free PSA for any other population of men. Performed at: [address] [id number] Dining Room Host: Manjeet Squires PhD, Phone: [phone] Performed By: #### L 3110.0500 #### [facility] [address] [place], [address] PSA, TOTAL ULTR 0.051 ng/mL Normal 0.000-4.000 [facility] Comment on above: Result Comment: Roch rafael ECLIA methodology. According to the [place] [employer], Serum PSA should decrease and remain at undetectable levels after radical prostatectomy. The AUA defines biochemical recurrence as an initial PSA value 0.200 ng/mL or greater followed by a subsequent confirmatory PSA value 0.200 ng/mL or greater. Values obtained with different assay methods or kits cannot be used interchangeably. Results cannot be interpreted as absolute evidence of the presence or absence of malignant disease. Performed By: #### L 3110.0500 #### [facility] [address] [place], [address] Abdomen W/WO IV Contraston 0 08-26-2024 Abdomen W/WO IV Contrast [facility] Imaging Services [address] [place] [address] Abdomen W/WO IV Contrast MR#: [id number] Acct: [id number] Name: ITALO VELASQUEZ Rep #: [id number] : 1950 M 74 From: Lucas howard MD PCP: Dr. Dilma Montes MD Status: REG CLI Study: Abdomen W/WO IV Contrast Date of Exam: 5 Exam# [id number] Ordering Dr: [place] [id number] STUDY: CT ABDOMEN WITH AND WITHOUT CONTRAST REASON FOR EXAM: Male, 74 years old. Liver disease, unspecified RADIATION DOSAGE (If Supplied By Facility): CTDIvol = ( 16.23 ) mGy, DLP = ( 1440.87 ) mGycm TECHNIQUE: Transaxial images were obtained pre and post I.V. administration of IV 100mL Isovue-[id number], and with oral contrast. Sagittal and coronal images were reconstructed. Individualized dose optimization techniques were used for this CT. COMPARISON: Comparison is made with prior study dated November 09, 2022. FINDINGS: Stable mild increased linear markings at the lung bases suggests mild basilar scarring. Coronary artery calcification. There is decreased attenuation of the liver consistent with steatosis. Normal gallbladder and extrahepatic biliary system. Normal spleen. Normal pancreas. Normal bilateral adrenal glands. Normal right kidney. Normal left kidney. Normal visualized stomach. Normal small intestine. Normal colon. The appendix is visualized and appears normal. Normal abdominal aorta. Normal inferior vena cava. Normal retroperitoneum. 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 Disc space narrowing at the L5-S1 level. Stable 6.2 mm rounded sclerosis seen in the anterior upper aspect of the L4 vertebra. CT/Abdomen W/WO IV Contrast IMPRESSION: Stable mild scarring at the lung bases. Fatty infiltration of liver. 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 Electronically Signed: Lucas Romano MD at 14:50 EST , CC: Dr. Dilma Montes MD Bleach Supervisor: Signed Normal [facility] Foot min 3 Viewson 5 Foot min 3 Views [facility] Imaging Services [address] [place] [address] Foot min 3 Views MR#: [id number] Acct: [id number] Name: ITALO VELASQUEZ Rep #: [id number] : 1950 M 74 From: Zhao Jackson MD PCP: Dr. Dilma Montes MD Status: REG CLI Study: Foot min 3 Views Date of Exam: 08/17/24 Exam# [id number] Ordering Dr: [place] [id number] STUDY: X-RAY - LEFT FOOT CLINICAL: Male, 74 years old. Left foot injury, of mid arch. TECHNIQUE: 3 views of the left foot. COMPARISON: None. FINDINGS: Normal talus, calcaneus, and tarsal bones. Normal visualized subtalar, talonavicular, calcaneocuboid, tarsal and tarsometatarsal articulations. Normal metatarsi. Normal metatarsophalangeal joint of the great toe. Normal tibial and fibular sesamoid bones. Normal interphalangeal joint of the great toe. Normal phalanges of the great toe. Normal second through fifth metatarsophalangeal joints. Normal interphalangeal joints and phalanges of the lesser toes. There is no demonstrated fracture. There are atherosclerotic calcifications. RAD/Foot min 3 Views IMPRESSION: No demonstrated fracture. Electronically Signed: Zhao Jackson MD at 11:20 EST Reading Location ID and State: [address] [place] [address] , Service support , CC: Dr. Dilma Montes MD Bleach Supervisor: Signed Normal [facility] Echo Completeon 04-14-[address] [facility] [address] [place] [address] Echo Complete 04/14/24 0931 MR#: [id number] Acct: [id number] Name: ITALO VELASQUEZ Rep #: [id number] : 1950 74 From: Hector Yuen MD Attending Dr: Dr. Hector Yuen MD Status: [facility] Ordering Dr: Hector Yuen MD Date: 04/14/24 Location: [facility] Sex: M C Admitted: Reason For Study: CAD/ASHD Procedure This was a 2D Doppler, Color Flow transthoracic echocardiogram. Exam performed in department. Left Ventricle Normal LV size. Left ventricular systolic function is normal. The left ventricular ejection fraction is 60 %. Stage 1 diastolic dysfunction. No regional wall motion abnormalities noted. Right Ventricle Normal RV size. Normal systolic function. Atria Normal left atrium. Normal right atrium. Mitral Valve Normal mitral valve. Tricuspid Valve Normal tricuspid valve. Mild tricuspid valve insufficiency. Aortic Valve Trisinus/trileaflet aortic valve. Mild (1+) eccentric aortic valve insufficiency. Pulmonic Valve Normal pulmonic valve. Great Vessels Normal aortic root. The pulmonary artery is normal size. Normal inferior vena cava. Pericardium/Pleural No pericardial effusion. MMode/2D Measurements Calculations LVIDd: 4.8 cm IVSd: 1.6 cm Ao root diam: 3.2 cm LVIDs: 3.2 cm LVPWd: 1.1 cm LA dimension: 4.2 cm RVDd: 4.3 cm FS: 34.8 % LAV(MOD-bp): 68.8 ml LVAd ap4: 31.3 cm2 SV(MOD-sp4): 63.2 ml LAV(MOD-bp) Indexed: 33.3 ml/m2 LVLd ap4: 7.9 cm LAV(MOD-sp2): 70.5 ml EDV(MOD-sp4): 103.1 ml LAV(MOD-sp4): 62.5 ml EDV(sp4-el): 105.4 ml LVAs ap4: 17.6 cm2 LVLs ap4: 6.6 cm ESV(MOD-sp4): 39.9 ml ESV(sp4-el): 40.1 ml EF(MOD-sp4): 61.3 % EF(sp4-el): 61.9 % SV(sp4-el): 65.3 ml LA A4 area: 20.9 cm2 RA A4 area: 17.4 cm2 TAPSE: 2.1 cm Time Measurements MV dec time: 0.21 sec Doppler Measurements Calculations MV E max laurel: 47.8 cm/sec Lat Peak E' Laurel: 4.9 cm/sec Med Peak E' Laurel: 7.0 cm/sec MV A max laurel: 63.2 cm/sec E/E' lat: 9.8 E/E' med: 6.8 MV E/A: 0.76 MV V2 max: 59.3 cm/sec MV P1/2t max laurel: 53.2 cm/sec Ao V2 max: 113.0 cm/sec MV max P.4 mmHg MV P1/2t: 67.4 msec Ao max P.1 mmHg MV V2 mean: 26.5 cm/sec MV dec slope: 231.4 cm/sec2 Ao V2 mean: 72.1 cm/sec MV mean P.36 mmHg Ao mean P.5 mmHg MV V2 VTI: 23.1 cm MVA(P1/2t): 3.3 cm2 Ao V2 VTI: 26.5 cm AV (velocity ratio): 0.85 AI max laurel: 521.9 cm/sec LV V1 max: 99.7 cm/sec MR max laurel: 568.8 cm/sec AI max P.0 mmHg LV V1 max P.0 mmHg MR max P.4 mmHg AI dec slope: 206.6 cm/sec2 LV V1 mean P.3 mmHg AI P1/2t: 739.7 msec LV V1 mean: 70.6 cm/sec LV V1 VTI: 22.5 cm PA V2 max: 141.6 cm/sec TR max laurel: 221.6 cm/sec PA max PG (full): 6.4 mmHg TR max P.6 mmHg ECHO/Echo Complete Interpretation Summary Normal LV size. Left ventricular systolic function is normal. The left ventricular ejection fraction is 60 %. Stage 1 diastolic dysfunction. Mild (1+) eccentric aortic valve insufficiency. Ordering Physician: Hector Yuen Referring Physician: Hector Yuen Performed By: Clayton Case RCS 04/14/24 1041 Date Hector Yuen MD CC: Dr. Dilma Montes MD; Dr. Hector Yuen MD Date Dictated: 04/14/24930 Date Transcribed: 04/14/24 104 Bleach Supervisor: Signed Normal [facility] Stress Reporton 04-14-2024 Stress Report [facility] [address] [place] [address] MR#: [id number] Acct: [id number] Name: ITALO VELASQUEZ Rep #: [id number] : 1950 74 From: Hector Yuen MD Primary Care: Dr. Dilma Montes MD Status: REG CLI Referring Dr: Hector Yuen MD Sex: M C Stress Test Report Exercise myocardial perfusion stress test. 74-year-old man with a history of coronary artery disease Stress protocol: Resting EKG demonstrates sinus bradycardia with a rate of 45 bpm resting blood pressure is 140/82 mmHg. The patient exercised according to the regular [facility]e protocol for a total duration of 12 minutes attaining a maximum heart rate of 137 bpm which was 92% of maximum predicted heart rate; the maximum workload was 13.4 metabolic equivalents. At rest there were no ST or T wave changes noted to suggest ischemia and at peak exercise upsloping ST changes only were noted which did not meet the criteria for ischemia. No clinical angina was noted the test was terminated due to the target heart rate being achieved/fatigue. The peak blood pressure was 200/90 mmHg. Rate-pressure product was 24,200. Myocardial perfusion protocol. 14.1 mCi of technetium 99m sestamibi was injected at rest. The patient exercised according to regular [facility]e protocol for total duration of 12 minutes and at peak exercise 44.3 mCi of technetium 99m sestamibi was injected stress images were obtained stress and rest images were reconstructed in comparing the short axis vertical long and horizontal long axis. Gated images were also obtained. Perfusion SPECT analysis: Review of the stress images demonstrate normal uptake of tracer noted in all areas of the myocardium. The resting images similarly demonstrate normal uptake of tracer noted in all areas of the myocardium. No areas of reversibility are noted to suggest ischemia no previous infarct was noted. Gated SPECT analysis: The gated ejection fraction is 67%. Conclusion: Normal exercise myocardial perfusion stress test at a high workload Preserved ejection fraction. 04/14/2459 Date Hector Yuen MD CC: Dr. Dilma Montes MD; Dr. Hector Yuen MD Date Dictated: 04/14/24954 Date Transcribed: 04/14/24954 Bleach Supervisor: CO Signed Normal [facility] Office Visiton 03-19-2024 Follow-up visit [id number] Irvin Velasquez 1950 M Date Provider Department Center 03/19/2024 [id number] [facility] None No family history on file Level of Service:68308 [place] OFFICE/OUTPATIENT ESTABLISHED MOD MDM 30 MIN Reason for Visit and Comments: Prostate Cancer [309] - 6 month follow up with PSA prior Normal [facility] Progress Noteon 03-19-2024 Progress Note Patel Bo MD 03/19/2024 at 10:56 AM Office follow up PATIENT NAME: Italo Velasquez DATE OF : 1950 TODAY'S DATE: 03/19/2024 CHIEF COMPLAINT: Chief Complaint Patient presents with Prostate Cancer 6 month follow up with PSA prior Subjective: Mr. Velasquez is a 74 y.o. male who presents to the office for follow up of prostate cancer He did have robotic assisted laparoscopic radical prostatectomy and bilateral pelvic lymph node dissection 06/16/2018. Pathology from this was eldon 3+4, pt3b, with a rising PSA. He completed salvage radiation. 08/2019 He has been overall doing very well He denies hematuria Voiding ok Continence is excellent Review of Systems Constitutional: Negative for activity change, chills, fatigue and fever. Gastrointestinal: Negative for abdominal distention and abdominal pain. Genitourinary: Negative for decreased urine volume, difficulty urinating, flank pain, hematuria and urgency. Past Medical History: Past Medical History: Diagnosis Date Asthma Cancer (CMS/HCC) ([facility]) 2018 prostate Hyperlipidemia Hypertension PIPE on CPAP Past Surgical History: Past Surgical History: Procedure Laterality Date COLONOSCOPY PROSTATECTOMY 06/16/2018 Robotic Assisted Laparoscopic Prostatectomy with Bilateral Pelvic Lymph Node Dissection Allergies: Acetaminophen and Atorvastatin Social History: Social History Socioeconomic History Marital status: Spouse name: Not on file Number of children: Not on file Years of education: Not on file Highest education level: Not on file Occupational History Not on file Tobacco Use Smoking status: Never Smokeless tobacco: Never Vaping Use Vaping status: Never Used Substance and Sexual Activity Alcohol use: No Drug use: No Sexual activity: Not Currently Partners: Female Comment: Other Topics Concern Not on file Social History Narrative Not on file Social Determinants of Health Financial Resource Strain: Not on file Food Insecurity: Not on file Transportation Needs: Not on file Physical Activity: Not on file Stress: Not on file Social Connections: Not on file Intimate Partner Violence: Not on file Housing Stability: Not on file Family History: Medications Prior to Admission medications Medication Sig Start Date End Date Taking? Authorizing Provider Aspirin 81 MG capsule Take 81 mg by mouth daily. Yes Historical Provider, b complex vitamins capsule Take 1 capsule by mouth daily. Yes Historical Provider, coenzyme Q-10 (Q-SORB) 100 MG capsule Take 200 mg by mouth daily. Yes Historical Provider, escitalopram (Lexapro) 20 MG tablet daily. 12/20/22 Yes Historical Provider, lisinopril 10 MG tablet Take by mouth daily. 12/17/22 Yes Historical Provider, omega-3 (Fish Oil) 1000 MG capsule Take by mouth daily. Yes Historical Provider, omeprazole (PriLOSEC) [address] capsule daily. 12/28/22 Yes Historical Provider, rOPINIRole (Requip) 0.25 MG tablet Nightly. 12/12/22 Yes Historical Provider, simvastatin (Zocor) 40 MG tablet daily. 09/18/22 Yes Historical Provider, cholecalciferol (Vitamin D3) 200 Unit tablet split tablet Take 2,000 mg by mouth daily. Historical Provider, gabapentin (Neurontin) 300 MG capsule 10/10/22 Historical Provider, niacin 500 MG tablet Take 1,000 mg by mouth daily. Historical Provider, Vitals: Ht 5' 10 (1.778 m) Wt 189 lb (85.7 kg) BMI 27.12 kg/m? Physical Exam General: alert, appears stated age, and cooperative Abdomen: soft and nondistended Back: straight, CVA tenderness absent : defer exam Labs: WBC No results found for: WBC BMP No results found for: NA, K, CL, CO2, BUN, CREATININE, GLUCOSE, CALCIUM PSA No results found for: PSA UANo results found for: APPEARANCE, COLORU, LABSPEC, LABPH, URINE, GLUCOSEU, UROBILINOGEN, BILIRUBINUR, OCBU Review: PSA 03/05/24 0.04 PSA 09/03/23 0.03 PSA 03/15/23 0.01 PSA 10/23/22 0.02 PSA 11/20/22 0.02 Impression/Plan Diagnoses and all orders for this visit: Prostate cancer (HCC) - PSA, total and free; Future Rising PSA following treatment for malignant neoplasm of prostate Stress incontinence He is overall doing very well Urinary continence excellent PSA remains very very low Continue to follow PSA every 6 mo Follow up in about 6 months (around 09/19/2024) for psa. Patel Bo MD 03/19/24 10:56 AM Normal [facility] Cardiology Visit Reporton Cardiology Visit Report [facility] [address] [place] [address] OFFICE VISIT Date of Service: 03/12/24 MR#: [id number] Acct: [id number] Name: ITALO VELASQUEZ Rep #: [id number] : 1950 Provider: Dr. Hector Yuen MD Age/Sex: 74/M [place] [facility] [place] Status: Signed HPI HPI History of Present Illness Details: This is a pleasant 74-year-old man who presents to the office today for a cardiovascular follow up visit. He has a history of abnormal coronary calcium score, as well as prostate carcinoma status post prostatectomy. He underwent a stress test in April of 2020 where he exercised to a high metabolic workload without any evidence of ischemia. He nonetheless underwent a cardiac catheterization which demonstrated mild to moderate disease noted in the ostium of the left anterior descending artery the other vessels did not demonstrate any significant stenosis. An echocardiogram was also performed which demonstrated an ejection fraction of 65% with 1-2+ mitral regurgitation. Stage I diastolic dysfunction was noted. From a cardiac standpoint, the patient is doing well. He denies any palpitations, chest pain, pressure or heaviness. He denies SOB, Orthopnea, and PND. He does not have bleeding issues; no blood in urine, stool or nosebleeds. He denies any decrease in energy level, myalgias, or claudication. He does not have edema, or sudden weight gain. He does have an occasional lightheadedness with quick positional changes. He denies dizziness, syncopal or near syncopal episodes, and headaches. 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 Accompanied by: Is patient in pain?: No Allergies acetaminophen (From Tylenol) Adverse Reaction (Verified 03/12/24 10:50) Diarrhea atorvastatin (From Lipitor) Adverse Reaction (Verified 03/12/24 10:50) Muscle aches Medications ???Medication ???Instructions ???Recorded ???Confirmed ???Type cholecalciferol (vitamin D3) 50 2,000 unit PO DAILY 10/18/18 03/12/24 History mcg (2,000 unit) capsule vitamin B complex (B Complex 1 1 tab PO DAILY 10/18/18 03/12/24 History tablet) aspirin 81 mg tablet,delayed 81 mg PO DAILY 04/01/19 03/12/24 History release (Adult Aspirin Regimen) coenzyme Q10 300 mg capsule (Co 300 mg PO DAILY 04/01/19 03/12/24 History Q-10) lisinopril 10 mg tablet 10 mg PO BID 90 days #180 tabs 04/01/19 03/12/24 History cinnamon bark 500 mg capsule 600 mg PO DAILY 05/02/20 03/12/24 History garlic 1250 mg tablet 1,200 mg PO DAILY 05/02/20 03/12/24 History ropinirole 0.25 mg tablet 0.25 mg PO QHS 05/02/20 03/12/24 History escitalopram oxalate 10 mg tablet 20 mg PO DAILY 90 days #180 tabs 01/21/23 03/12/24 History lorazepam 0.5 mg tablet 0.5 mg PO DAILY PRN Anxiety #30 01/21/23 03/12/24 History tabs simvastatin 40 mg tablet 20 mg PO BID 03/12/24 03/12/24 History Have you fallen in the past year?: No PFSH Medical History Atherosclerotic heart disease of [place] coronary artery with other forms of angina pectoris Back pain Segmental and somatic dysfunction of thoracic region Segmental and somatic dysfunction of cervical region Segmental and somatic dysfunction of pelvic region Segmental and somatic dysfunction of lumbar region Back pain Segmental and somatic dysfunction of pelvic region Segmental and somatic dysfunction of lumbar region Abnormal Heart Score CT Obstructive sleep apnea Prostate cancer Essential (primary) hypertension Incontinence Shortness of breath Hyperlipidemia Depression Surgical History History of left heart catheterization (05/02/20) History of transurethral resection of prostate Family History Mother Heart disease CAD (coronary artery disease) Myocardial infarction 79 Social History Smoking Status: Never smoker alcohol intake: never ROS Const Const: Negative for fatigue, weakness, headache(s), daytime sleepiness or difficulty sleeping ENT ENT: Negative for headache(s), dizziness or Nosebleed/epistaxis Cardio Chest Pain: No Palpitations: No Edema: None Resp Respiratory: Positive for SOB with activity (with exertion/exercise); Negative for SOB at rest, SOB orthopnea SOB lying down or Cough GI GI: Negative nausea, vomiting or heartburn Neuro Neuro: Negative for dizziness, lightheadedness, near syncope, headache(s) or we (more content not included)... Normal [facility] PSA Total+%Freeon 03-05-2024 PSA, FREE <0.02 Normal N/A [facility] Comment on above: Result Comment: Shikha GUALLPA methodology. Performed By: #### L 3110.0500 #### [facility] [address] [place], [address] PSA, FREE % <46.[address] [facility] Comment on above: Result Comment: The table below lists the probability of prostate cancer for men with non-suspicious MELISSA results and total PSA between 4 and 10 ng/mL, by patient age (Ángel et al, CLAUS 1998, 279:1542). % Free PSA 50-64 yr 65-75 yr 0.00-10.00% 56% 55% 10.01-15.00% 24% 35% 15.01-20.00% 17% 23% 20.01-25.00% 10% 20% >25.00% 5% 9% Please note: Ángel et al did not make specific recommendations regarding the use of percent free PSA for any other population of men. Performed at: [facility] [address] [place], [place] [id number] Dining Room Host: Manjeet Squires PhD, Phone: [phone] Performed By: #### L 3110.0500 #### [facility] [address] [place], [address] PSA, TOTAL ULTR 0.043 ng/mL Normal 0.000-4.000 [facility] Comment on above: Result Comment: Shikha FLYNNIA methodology. According to the [place] [employer], Serum PSA should decrease and remain at undetectable levels after radical prostatectomy. The AUA defines biochemical recurrence as an initial PSA value 0.200 ng/mL or greater followed by a subsequent confirmatory PSA value 0.200 ng/mL or greater. Values obtained with different assay methods or kits cannot be used interchangeably. Results cannot be interpreted as absolute evidence of the presence or absence of malignant disease. Performed By: #### L 3110.0500 #### [facility] [address] [place], [address] CBC W/Diff, Automatedon 01-11 Absolute Lymph 1.58 X10 3/uL Normal 0.83-4.51 [facility] Comment on above: Order Comment: PER P T-ONLY RINKU ORDER Order Date: 01/28/24 Order Info: 0184-1 - CBCD Performed By: #### L 500.4100, L500.4050, L100.0100 #### [facility] [address] [place], [address] Absolute Neut 4.3 X10 3/uL Normal 2.0-7.7 [facility] Comment on above: Order Comment: PER P T-ONLY RINKU ORDER Order Date: 01/28/24 Order Info: 0184-1 - CBCD Performed By: #### L 500.4100, L500.4050, L100.0100 #### [facility] [address] [place], [address] Basophils/100 WBC (Bld) 0.6 % Normal 0-1 [facility] Comment on above: Order Comment: PER P T-ONLY RINKU ORDER Order Date: 01/28/24 Order Info: 0184-1 - CBCD Performed By: #### L 500.4100, L500.4050, L100.0100 #### [facility] [address] [place], [address] Eosinophils/100 WBC (Bld) 1.5 % Normal 0-5 [facility] Comment on above: Order Comment: PER P T-ONLY RINKU ORDER Order Date: 01/28/24 Order Info: 0184- - CBCD Performed By: #### L 500.4100, L500.4050, L100.0100 #### [facility] [address] [place], [address] Erythrocyte distribution width (RBC) [Ratio] 13.2 % Normal 11.6-14.6 [facility] Comment on above: Order Comment: PER P T-ONLY RINKU ORDER Order Date: 01/28/24 Order Info: 018- - CBCD Performed By: #### L 500.4100, L500.4050, L100.0100 #### [facility] [address] [place], [address] Hematocrit (Bld) [Volume fraction] 43.1 % Normal 40-54 [facility] Comment on above: Order Comment: PER P T-ONLY RINKU ORDER Order Date: 01/28/24 Order Info: 0184- - CBCD Performed By: #### L 500.4100, L500.4050, L100.0100 #### [facility] [address] [place], [address] Hemoglobin (Bld) [Mass/Vol] 14.6 g/dL Normal 13.0-16.5 [facility] Comment on above: Order Comment: PER P T-ONLY RINKU ORDER Order Date: 01/28/24 Order Info: 0184- - CBCD Performed By: #### L 500.4100, L500.4050, L100.0100 #### [facility] [address] [place], [address] IG% 0.300 Normal 0.0-0.9 [facility] Comment on above: Order Comment: PER P T-ONLY RINKU ORDER Order Date: 01/28/24 Order Info: 0184- - CBCD Result Comment: IG% - Immature Granulocytes (promyelocytes, myelocytes and metamyelocytes) > 1% indicates that a LEFT SHIFT is Present. Performed By: #### L 500.4100, L500.4050, L100.0100 #### [facility] [address] [place], [address] Lymphocytes/100 WBC (Bld) 24.3 % Normal 19-41 [facility] Comment on above: Order Comment: PER P T-ONLY RINKU ORDER Order Date: 01/28/24 Order Info: 018- - CBCD Performed By: #### L 500.4100, L500.4050, L100.0100 #### [facility] [address] [place], [address] MCH (RBC) [Entitic mass] 30.5 pg Normal 27.0-32.0 [facility] Comment on above: Order Comment: PER P T-ONLY RINKU ORDER Order Date: 01/28/24 Order Info: 018- - CBCD Performed By: #### L 500.4100, L500.4050, L100.0100 #### [facility] [address] [place], [address] MCHC (RBC) [Mass/Vol] 33.9 g/dL Normal 32-36 [facility] Comment on above: Order Comment: PER P T-ONLY RINKU ORDER Order Date: 01/28/24 Order Info: 018- - CBCD Performed By: #### L 500.4100, L500.4050, L100.0100 #### [facility] [address] [place], [address] MCV (RBC) [Entitic vol] 90.2 fL Normal 80-94 [facility] Comment on above: Order Comment: PER P T-ONLY RINKU ORDER Order Date: 01/28/24 Order Info: 018- - CBCD Performed By: #### L 500.4100, L500.4050, L100.0100 #### [facility] [address] [place], [address] Monocytes/100 WBC (Bld) 8.0 % Normal 0-10 [facility] Comment on above: Order Comment: PER P T-ONLY RINKU ORDER Order Date: 01/28/24 Order Info: 0184-1 - CBCD Performed By: #### L 500.4100, L500.4050, L100.0100 #### [facility] [address] [place], [address] Neutrophils/100 WBC (Bld) 65.3 % Normal 47-70 [facility] Comment on above: Order Comment: PER P T-ONLY RINKU ORDER Order Date: 01/28/24 Order Info: 0184-1 - CBCD Performed By: #### L 500.4100, L500.4050, L100.0100 #### [facility] [address] [place], [address] Nucleated RBC (Bld) [#/Vol] 0 10*3/uL Normal 0-5 [facility] Comment on above: Order Comment: PER P T-ONLY RINKU ORDER Order Date: 01/28/24 Order Info: 0184-1 - CBCD Performed By: #### L 500.4100, L500.4050, L100.0100 #### [facility] [address] [place], [address] Platelet mean volume (Bld) [Entitic vol] 9.9 fL Normal 6.2-12.0 [facility] Comment on above: Order Comment: PER P T-ONLY RINKU ORDER Order Date: 01/28/24 Order Info: 0184-1 - CBCD Performed By: #### L 500.4100, L500.4050, L100.0100 #### [facility] [address] [place], [address] Platelets (Bld) [#/Vol] 180 10*3/uL Normal 150-450 [facility] Comment on above: Order Comment: PER P T-ONLY RINKU ORDER Order Date: 01/28/24 Order Info: 0184-1 - CBCD Performed By: #### L 500.4100, L500.4050, L100.0100 #### [facility] [address] [place], [address] RBC (Bld) [#/Vol] 4.78 10*6/uL Normal 4.6-6.2 [facility] Comment on above: Order Comment: PER P T-ONLY RINKU ORDER Order Date: 01/28/24 Order Info: 0184- - CBCD Performed By: #### L 500.4100, L500.4050, L100.0100 #### [facility] [address] [place], [address] RDW SD 43.6 fl Normal 35.1-43.9 [facility] Comment on above: Order Comment: PER P T-ONLY RINKU ORDER Order Date: 01/28/24 Order Info: 0184- - CBCD Performed By: #### L 500.4100, L500.4050, L100.0100 #### [facility] [address] [place], [address] WBC (Bld) [#/Vol] 6.5 10*3/uL Normal 4.4-11.0 [facility] Comment on above: Order Comment: PER P T-ONLY RINKU ORDER Order Date: 01/28/24 Order Info: 0184- - CBCD Performed By: #### L 500.4100, L500.4050, L100.0100 #### [facility] [address] [place], [address] Comprehensive Metabolic Prof ilon 02-05-2024 Albumin [Mass/Vol] 3.7 g/dL Normal 3.2-5.0 [facility] Comment on above: Order Comment: PER P T-ONLY RINKU ORDER Order Date: 01/28/24 Order Info: [id number] - CMP Order Info: [id number] - LIPID Performed By: #### L 500.4100, L500.4050, L100.0100 #### [facility] [address] [place], [address] Albumin/Globulin [Mass ratio] 1.0 {ratio} Normal 0.9-2.4 [facility] Comment on above: Order Comment: PER P T-ONLY RINKU ORDER Order Date: 01/28/24 Order Info: 07 - CMP Order Info: [id number] - LIPID Performed By: #### L 500.4100, L500.4050, L100.0100 #### [facility] [address] [place], [address] ALK P 74 U/L Normal 45-117 [facility] Comment on above: Order Comment: PER P T-ONLY RINKU ORDER Order Date: 01/28/24 Order Info: [id number] - CMP Order Info: [id number] - LIPID Performed By: #### L 500.4100, L500.4050, L100.0100 #### [facility] [address] [place], [address] ALT [Catalytic activity/Vol] 30 U/L Normal 16-61 [facility] Comment on above: Order Comment: PER P T-ONLY RINKU ORDER Order Date: 01/28/24 Order Info: [id number] - CMP Order Info: [id number] - LIPID Performed By: #### L 500.4100, L500.4050, L100.0100 #### [facility] [address] [place], [address] AST [Catalytic activity/Vol] 39 U/L High 15-37 [facility] Comment on above: Order Comment: PER P T-ONLY RINKU ORDER Order Date: 01/28/24 Order Info: 07 - CMP Order Info: [id number] - LIPID Performed By: #### L 500.4100, L500.4050, L100.0100 #### [facility] [address] [place], [address] Bilirubin [Mass/Vol] 1.00 mg/dL Normal 0.20-1.00 [facility] Comment on above: Order Comment: PER P T-ONLY RINKU ORDER Order Date: 01/28/24 Order Info: [id number] - CMP Order Info: [id number] - LIPID Result Comment: For patients on eltrombopag therapy, use of Dimension [place] TBIL is not recommended. Performed By: #### L 500.4100, L500.4050, L100.0100 #### [facility] [address] [place], [address] BUN/CRE 15.5 RATIO Normal 10-20 [facility] Comment on above: Order Comment: PER P T-ONLY RINKU ORDER Order Date: 01/28/24 Order Info: 07 - CMP Order Info: [id number] - LIPID Performed By: #### L 500.4100, L500.4050, L100.0100 #### [facility] [address] [place], [address] CA,Total 9.1 mg/dL Normal 8.5-10.1 [facility] Comment on above: Order Comment: PER P T-ONLY RINKU ORDER Order Date: 01/28/24 Order Info: 07 - CMP Order Info: [id number] - LIPID Performed By: #### L 500.4100, L500.4050, L100.0100 #### [facility] [address] [place], [address] Chloride [Moles/Vol] 107 mmol/L Normal 98-107 [facility] Comment on above: Order Comment: PER P T-ONLY RINKU ORDER Order Date: 01/28/24 Order Info: [id number] - CMP Order Info: [id number] - LIPID Performed By: #### L 500.4100, L500.4050, L100.0100 #### [facility] [address] [place], [address] CO2 [Moles/Vol] 26.0 mmol/L Normal 21.0-32.0 [facility] Comment on above: Order Comment: PER P T-ONLY RINKU ORDER Order Date: 01/28/24 Order Info: 07 - CMP Order Info: [id number] - LIPID Performed By: #### L 500.4100, L500.4050, L100.0100 #### [facility] [address] [place], [address] Creatinine [Mass/Vol] 1.03 mg/dL Normal 0.70-1.30 [facility] Comment on above: Order Comment: PER P T-ONLY RINKU ORDER Order Date: 01/28/24 Order Info: [id number] - CMP Order Info: [id number] - LIPID Result Comment: The validity of the calculated GFR GFRAA in patients over 70 years has not been determined. Clinical correlation is essential. Performed By: #### L 500.4100, L500.4050, L100.0100 #### [facility] [address] [place], [address] EST GFR - AA 91 mL/min Normal >60 [facility] Comment on above: Order Comment: PER P T-ONLY RINKU ORDER Order Date: 01/28/24 Order Info: [id number] - CMP Order Info: [id number] - LIPID Result Comment: Afri can [place] GFR Calc Performed By: #### L 500.4100, L500.4050, L100.0100 #### [facility] [address] [place], [address] GAP 5 Normal 5-15 [facility] Comment on above: Order Comment: PER P T-ONLY RINKU ORDER Order Date: 01/28/24 Order Info: 07 - CMP Order Info: [id number] - LIPID Performed By: #### L 500.4100, L500.4050, L100.0100 #### [facility] [address] [place], [address] GFR/1.73 sq M.predicted among non-blacks MDRD (S/P/Bld) [Vol rate/Area] 75 mL/min/{1.73_m2} Normal >60 [facility] Comment on above: Order Comment: PER P T-ONLY RINKU ORDER Order Date: 01/28/24 Order Info: 07 - CMP Order Info: [id number] - LIPID Result Comment: Non- GFR Calc Performed By: #### L 500.4100, L500.4050, L100.0100 #### [facility] [address] [place], [address] Globulin (S) [Mass/Vol] 3.7 g/dL Normal 2.2-4.2 [facility] Comment on above: Order Comment: PER P T-ONLY RINKU ORDER Order Date: 01/28/24 Order Info: 07 - CMP Order Info: [id number] - LIPID Performed By: #### L 500.4100, L500.4050, L100.0100 #### [facility] [address] [place], [address] Glucose [Mass/Vol] 99 mg/dL Normal 74-106 [facility] Comment on above: Order Comment: PER P T-ONLY RINKU ORDER Order Date: 01/28/24 Order Info: 07 - CMP Order Info: [id number] - LIPID Performed By: #### L 500.4100, L500.4050, L100.0100 #### [facility] [address] [place], [address] Potassium [Moles/Vol] 3.8 mmol/L Normal 3.5-5.1 [facility] Comment on above: Order Comment: PER P T-ONLY RINKU ORDER Order Date: 01/28/24 Order Info: [id number] - CMP Order Info: [id number] - LIPID Performed By: #### L 500.4100, L500.4050, L100.0100 #### [facility] [address] [place], [address] Sodium [Moles/Vol] 138 mmol/L Normal 136-145 [facility] Comment on above: Order Comment: PER P T-ONLY RINKU ORDER Order Date: 01/28/24 Order Info: [id number] - CMP Order Info: [id number] - LIPID Performed By: #### L 500.4100, L500.4050, L100.0100 #### [facility] [address] [place], [address] T PROT 7.4 g/dL Normal 6.4-8.2 [facility] Comment on above: Order Comment: PER P T-ONLY RINKU ORDER Order Date: 01/28/24 Order Info: [id number] - CMP Order Info: [id number] - LIPID Performed By: #### L 500.4100, L500.4050, L100.0100 #### [facility] [address] [place], [address] Urea nitrogen [Mass/Vol] 16 mg/dL Normal 02-26 [facility] Comment on above: Order Comment: PER P T-ONLY RINKU ORDER Order Date: 01/28/24 Order Info: [id number] - CMP Order Info: [id number] - LIPID Performed By: #### L 500.4100, L500.4050, L100.0100 #### [facility] [address] [place], [address] Lipid Profileon 02-05-2024 Cholesterol [Mass/Vol] 188 mg/dL Normal 200 [facility] Comment on above: Order Comment: PER P T-ONLY RINKU ORDER Order Date: 01/28/24 Order Info: [id number] - CMP Order Info: [id number] - LIPID Result Comment: <200 mg/dL Desirable 200-240 mg/dL Borderline >240 mg/dL High Risk Performed By: #### L 500.4100, L500.4050, L100.0100 #### [facility] [address] [place], [address] Cholesterol in HDL [Mass/Vol] 50 mg/dL Normal [facility] Comment on above: Order Comment: PER P T-ONLY RINKU ORDER Order Date: 01/28/24 Order Info: 07 - CMP Order Info: [id number] - LIPID Result Comment: The drugs N-Acetylcysteine and Metamizole may falsely depress this assay. Reference Range HDL <40 mg/dL Low HDL Cholesterol HDL >or= 60 mg/dL High HDL Cholesterol Performed By: #### L 500.4100, L500.4050, L100.0100 #### [facility] [address] [place], [address] Cholesterol in LDL [Mass/Vol] 98 mg/dL Normal 0-130 [facility] Comment on above: Order Comment: PER P T-ONLY RINKU ORDER Order Date: 01/28/24 Order Info: 07 - CMP Order Info: [id number] - LIPID Performed By: #### L 500.4100, L500.4050, L100.0100 #### [facility] [address] [place], [address] Cholesterol in VLDL [Mass/Vol] 40 mg/dL Normal 5-40 [facility] Comment on above: Order Comment: PER P T-ONLY RINKU ORDER Order Date: 01/28/24 Order Info: [id number] - CMP Order Info: [id number] - LIPID Performed By: #### L 500.4100, L500.4050, L100.0100 #### [facility] [address] [place], [address] Triglyceride [Mass/Vol] 199 mg/dL Normal [facility] Comment on above: Order Comment: PER P T-ONLY RINKU ORDER Order Date: 01/28/24 Order Info: [id number] - CMP Order Info: [id number] - LIPID Result Comment: The drugs N-Acetylcysteine and Metamizole may falsely depress this assay. Serum Triglycerides Reference Interval Normal <150 mg/dL Borderline high 150 - 199 mg/dL High 200 - 499 mg/dL Very High > or = 500 mg/dL Performed By: #### L 500.4100, L500.4050, L100.0100 #### [facility] [address] [place], [address] Basophil percentageOrdered B y: Nohemi Rodríguez on 06-19-2023 Chloride [Moles/Vol] 108 mmol/L 98-107 [facility] Glucose [Mass/Vol] 101 mg/dL 74-106 [facility] Comment on above: Fasting Glucose resu lt from 100 to 125 mg/dL suggests IMPAIRED HOMEOSTASIS per A.D.A. criteria. Potassium [Moles/Vol] 4.0 mmol/L 3.5-5.1 [facility] Sodium [Moles/Vol] 137 mmol/L 136-145 [facility] WBC (Bld) [#/Vol] 7.1 10*3/uL 4.4-11.0 [facility] Blood erythrocytes count (nu mber/volume)Ordered By: Nohemi Rodríguez on 06-19-2023 RBC (Bld) [#/Vol] 5.01 10*6/uL 4.6-6.2 [facility] Blood hemoglobin measurement (mass/volume)Ordered By: Nohemi Rodríguez on 06-19-2023 Hemoglobin (Bld) [Mass/Vol] 15.7 g/dL 13.0-16.5 [facility] Blood platelet mean volumeOr dered By: Nohemi Rodríguez on 06-19-2023 Platelet mean volume (Bld) [Entitic vol] 9.3 fL 6.2-12.0 [facility] Determination of erythrocyte mean corpuscular volume (MCV)Ordered By: Nohemi Rodríguez on 06-19-2023 MCV (RBC) [Entitic vol] 92.2 fL 80-94 [facility] Hematocrit Auto (Bld) [Volum e fraction]Ordered By: Nohemi Rodríguez on 06-19-2023 Hematocrit (Bld) [Volume fraction] 46.2 % 40-54 [facility] - Chemistry and C hemistry - challengeOrdered By: Nohemi Rodríguez on 06-19-2023 CO2 [Moles/Vol] 26.0 mmol/L 21.0-32.0 [facility] Urea nitrogen/Creatinine [Mass ratio] 18.6 mg/mg 10-20 [facility] - Hematology and Cell countsOrdered By: Nohemi Rodríguez on 11-08-2023 Erythrocyte distribution width (RBC) [Entitic vol] 44.2 fL 35.1-43.9 [facility] Erythrocyte distribution width (RBC) [Ratio] 13.1 % 11.6-14.6 [facility] MCH (RBC) [Entitic mass] 31.3 pg 27.0-32.0 [facility] MCHC Auto (RBC) [Mass/Vol]Or dered By: Nohemi Rodríguez on 06-19-2023 MCHC (RBC) [Mass/Vol] 34.0 g/dL 32-36 [facility] No Panel InformationOrdered By: Nohemi Rodríguez on 06-19-2023 Estimated GFR (MDRD) Amer 98 mL/min >60 [facility] Comment on above: GFR Calc Estimated GFR (MDRD) Non-Af Amer 81 mL/min >60 [facility] Comment on above: Non- GFR Calc Platelets bldOrdered By: Candido Rodríguez on 06-19-2023 Platelets (Bld) [#/Vol] 198 10*3/uL 150-450 [facility] Serum or plasma calcium maurisio urement (mass/volume)Ordered By: Nohemi Rodríguez on 06-19-2023 Calcium [Mass/Vol] 9.1 mg/dL 8.5-10.1 [facility] Serum or plasma creatinine m easurement (mass/volume)Ordered By: Nohemi Rodríguez on 06-19-2023 Creatinine [Mass/Vol] 0.97 mg/dL 0.70-1.30 [facility] Comment on above: The validity of the calculated GFR & GFRAA in patients over 70 years has not been determined. Clinical correlation is essential. Serum or plasma urea nitroge n measurement (mass/volume)Ordered By: Nohemi Rodríguez on 06-19-2023 Urea nitrogen [Mass/Vol] 18 mg/dL 7-18 [facility] Thin prep Papanicolaou smear with manual screeningOrdered By: Nohemi Rodríguez on 06-19-2023 Thin prep Papanicolaou smear with manual screening 3 5-15 [facility] No Panel Informationon 03-15 Prostate Specific Antigen Total 0.03 ng/mL 0.0-4.0 [facility] Comment on above: This test was perfor med using the TPSA assay method for the[facility] chemistry system. Values obtained with differentassay methods cannot be used interchangably.When changing PSA assays in the course of monitoring apatient, additional sequential testing should be carriedout to confirm baseline values. Basophil percentageOrdered B y: Dr. Yuen on 01-10-2023 Bilirubin [Mass/Vol] 0.90 mg/dL 0.20-1.00 [facility] Comment on above: For patients on eltr ombopag therapy, use of Dimension [place] TBIL is not recommended. Cholesterol [Mass/Vol] 168 mg/dL <200 [facility] Comment on above: <200 mg/dL Desirable 200-240 mg/dL Borderline >240 mg/dL High Risk Protein [Mass/Vol] 7.1 g/dL 6.4-8.2 [facility] Triglyceride [Mass/Vol] 128 mg/dL <199 [facility] Comment on above: The drugs N-Acetylcy steine and Metamizole may falsely depress this assay.Serum Triglycerides Reference Interval Normal <150 mg/dL Borderline high 150 - 199 mg/dL High 200 - 499 mg/dL Very High > or = 500 mg/dL Direct bilirubinOrdered By: Dr. Yuen on 01-10-2023 Bilirubin.direct [Mass/Vol] 0.19 mg/dL 0.00-0.30 [facility] - Chemistry and C hemistry - challengeOrdered By: Dr. Yuen on 01-10-2023 ALP [Catalytic activity/Vol] 67 U/L 45-117 [facility] ALT [Catalytic activity/Vol] 28 U/L 16-61 [facility] Globulin (S) [Mass/Vol] 3.4 g/dL 2.2-4.2 [facility] Serum or plasma albumin maurisio urement (mass/volume)Ordered By: Dr. Yuen on 01-10-2023 Albumin [Mass/Vol] 3.7 g/dL 3.2-5.0 [facility] Serum or plasma cholesterol in HDL measurement (mass/volume)Ordered By: Dr. Yuen on 01-10-2023 Cholesterol in HDL [Mass/Vol] 51 mg/dL >40 [facility] Comment on above: The drugs N-Acetylcy steine and Metamizole may falsely depress this assay. Reference Range HDL <40 mg/dL Low HDL Cholesterol HDL >or= 60 mg/dL High HDL Cholesterol Serum or plasma cholesterol in VLDL measurement (mass/volume)Ordered By: Dr. Yuen on 01-10-2023 Cholesterol in VLDL [Mass/Vol] 26 mg/dL 5-40 [facility] Serum or plasma low density lipoprotein (LDL) cholesterol measurement (mass/volume)Ordered By: Dr. Yuen on 01-10-2023 Cholesterol in LDL [Mass/Vol] 91 mg/dL 0-130 [facility] Thin prep Papanicolaou smear with manual screeningOrdered By: Dr. Yuen on 01-10-2023 Thin prep Papanicolaou smear with manual screening 29 U/L 15-37 [facility] No Panel Informationon 11-20 Prostate Specific Antigen Screen 0.02 ng/mL 0.00-4.00 [facility] Comment on above: This test was perfor med using the TPSA assay method for theDim[employer] chemistry system. Values obtained with differentassay methods cannot be used interchangably.When changing PSA assays in the course of monitoring apatient, additional sequential testing should be carriedout to confirm baseline values. Basophil percentageOrdered B y: Fatemeh Gaffneynger on 11-09-2022 Creatinine [Mass/Vol] 0.9 mg/dL 0.70-1.30 [facility] No Panel InformationOrdered By: Fatemeh Gaffneynger on 11-09-2022 Bedside Estimated GFR (eGFR) > 60.0000 mL/min >60 [facility] No Panel Informationon 10-23 Prostate Specific Antigen Total 0.02 ng/mL 0.0-4.0 [facility] Comment on above: This test was perfor med using the TPSA assay method for the[employer] chemistry system. Values obtained with differentassay methods cannot be used interchangably.When changing PSA assays in the course of monitoring apatient, additional sequential testing should be carriedout to confirm baseline values. Acid fast bacilli (AFB) cult ureOrdered By: Dr. Frazier on 10-07-2022 Mycobacterium sp identified Org specific cx Nom (Unsp spec) [facility] Mycobacterium sp identified Org specific cx Nom (Unsp spec) [facility] Thin prep Papanicolaou smear with manual screeningOrdered By: Dr. Frazier on 10-07-2022 Thin prep Papanicolaou smear with manual screening [facility] Thin prep Papanicolaou smear with manual screening [facility] Microbial respiratory cultur eOrdered By: Dr. Frazier on 08-24-2022 Bacteria identified Respiratory culture Nom (Unsp spec) or Staphylococcus aureus isolated. [facility] Gram stain for investigation of transfusion reactionOrdered By: Dr. Frazier on 08-23-2022 Microscopic observation Gram stain Nom (Unsp spec) [facility] Microbial respiratory cultur eOrdered By: Dr. Frazier on 08-23-2022 Bacteria identified Respiratory culture Nom (Unsp spec) or Staphylococcus aureus isolated. [facility] Gram stain for investigation of transfusion reactionOrdered By: Dr. Frazier on 08-22-2022 Microscopic observation Gram stain Nom (Unsp spec) [facility] Microbial respiratory cultur eOrdered By: Dr. Frazier on 08-03-2022 Bacteria identified Respiratory culture Nom (Unsp spec) [facility] Gram stain for investigation of transfusion reactionOrdered By: Dr. Frazier on 08-01-2022 Microscopic observation Gram stain Nom (Unsp spec) [facility] Radiation Onc F/U Noteon Radiation Onc F/U Note [facility] Radiation Oncology RADIATION ONCOLOGY FOLLOW UP PATIENT: Italo Velasquez DATE OF SERVICE: 05/08/2022 [facility] : 1950 AGE: 72 PRIMARY SITE: C61 prostate, adenocarcinoma, Eldon's grade group 2 (3+4) with original PSA of 8.47 on 01/27/2018. STAGE: cT1c N0 M0; pT3b N0 M0, IIIB HISTORY OF PRESENT ILLNESS: Mr. Velasquez is a 72-year-old male with a history of rising PSA. On 01/27/2018 it was 8.47. On 04/08/2018 he underwent prostate biopsy. This revealed 6 out of 12 cores to be involved. It ranged from a Eldon score 6 (3+3) to a [place] score 7 (3+4). Treatment options were discussed. He pursued surgery. On 06/16/2018 he underwent a robotic radical prostatectomy, bilateral pelvic lymphadenectomy and complete sphincteric ANC Rahul Villers reconstruction. Patient was serially followed and the PSA was noted to be rising. PSA on 06/04/2019 was 0.06. He presented for radiation which completed 09/01/2019. INTERVAL SINCE RADIATION: 2 1/2 years 07/05/19 - 09/01/19: 70.20/70.20 Gy to the Pros Bed Region in 39 fractions of 1.80 Gy using the VMAT/Daily IGRT technique with 10 MV over 58 days. INTERVAL HISTORY: Patient presents with his for follow-up today. Mr. Velasquez notes that things are going well. Appetite and energy level are good. He works out at [employer]. He continues to have his PSA monitored regularly. The PSA in March was noted to have a change but he also notes that there was some problems with the Lab. This was repeated in April and continued to be good. He has no pain. No new bowel or bladder issues. No cardiac or respiratory complaints. He has a new primary physician. He continues to follow with urology regularly and is scheduled to see them again in October. PAST MEDICAL HISTORY: Hypertension, depression and anxiety, hyperlipidemia, restless leg syndrome, sleep apnea for which he uses CPAP. Precancerous skin lesions have been removed. Coronary artery disease. Erectile dysfunction. PAST SURGICAL HISTORY: Skin lesion removal as above: Colonoscopy in 2018: Prostate biopsy on 04/08/2018: Prostate surgery on 06/16/2018. ALLERGIES: acetominophen MEDICATIONS: 1. aspirin - 1 Tablet Oral Daily 2. B Complex - 1 Capsule Oral Daily 3. Breo Ellipta - Inhalation 4. cholecalciferol (vitamin D3) - 1 Capsule Oral Daily 5. Cinnamon - 1 Capsule Oral Daily 6. coQ10 (ubiquinol) - 1 Capsule Oral Daily 7. fluticasone furoate-vilanterol - Inhalation 8. garlic - 1 Capsule Oral 9. Lexapro - 1 Tablet Oral Daily 10. lisinopril - 1 Tablet Oral Twice a Day 11. Neurontin - 1 Capsule Oral Daily 12. niacin - 1,000 mg PO Daily 13. Sinclair 3 - 1 Capsule Oral Daily 14. Zocor - 1 Tablet Oral Every day before sleep Medications Last Reconciled by Joslyn Chambers RN on 05/08/2022 SUMMARY OF SIGNIFICIANT X-RAY/LABORATORY FINDINGS: PSA on 01/22/2020 was less than 0.01. PSA on 11/03/2020 was less than 0.01. PSA on 02/17/2021 was less than 0.01. PSA on 05/22/2021 was less than 0.01, on 09/28/2021 was less than 0.01, on 03/13/2022 was 0.02 which was questioned, repeat on 04/17/2022 was less than 0.01. REVIEW OF SYSTEMS: Pain: 0. - No pain As above. AUA score is 1. Mayo score is 0. KPS: 100 - Normal; no complaints; no evidence of disease PHYSICAL EXAMINATION: VITALS: Temperature 97.3 F (05/08/22), Pulse 52 (05/08/22), Respirations 16 (05/08/22), Blood Pressure 135/69 (05/08/22) Weight 187 pounds 05/08/22 Accompanied by his . GENERAL: Awake, alert, oriented x3, no anxiety, dressed appropriately, appears of stated age. Ambulates without assistance. Speech pattern fluent. LUNGS: Clear to auscultation. No rales or rhonchi. HEART: Regular rate and rhythm, S1-S2 noted no murmur. NECK: Symmetric. NODES: No neck, supraclavicular, infraclavicular adenopathy. ABDOMEN: Soft, nontender, nondistended. No hepatosplenomegaly, no suspicious mass. MUSCULOSKELETAL: No swelling. No calf tenderness. No spine or posterior chest wall tenderness. IMPRESSION: Mr. Velasquez is a 72-year-old gentleman who presented with prostate cancer. He underwent surgery in 2017. He completed external radiation in 2019. PSA is in excellent range. Clinically he is doing well. He continues to follow with his other physicians. We discussed the continued importance of hydration, healthy nutrition and exercise long-term. PLAN: Return to office in 1 year. Gina Baker MD, FACRO Total time: 25 minutes in chart review, lab evaluation/interpretati on, patient exam, patient counseling and care coordination. Electronically signed by: Gina Baker MD , T: 11:51 AM CC: Patel Bo MD, Fatemeh Griffith DO The [facility] Department of Radiation Oncology is an Accredited Facility of the [place] [employer] (A[employer]). This document was completed utilizing speech re (more content not included)... Normal [facility] No Panel Informationon 04-17 Prostate Specific Antigen Total < 0.01 ng/mL 0.0-4.0 [facility] Work Phone: Comment on above: This test was perfor med using the TPSA assay method for the[employer] chemistry system. Values obtained with differentassay methods cannot be used interchangably.When changing PSA assays in the course of monitoring apatient, additional sequential testing should be carriedout to confirm baseline values. Basophil percentageon 2021 Bilirubin [Mass/Vol] 0.60 mg/dL 0.20-1.00 [facility] Work Phone: Comment on above: For patients on eltr ombopag therapy, use of Dimension [place] TBIL is not recommended. Cholesterol [Mass/Vol] 161 mg/dL <200 [facility] Work Phone: Comment on above: <200 mg/dL Desirable 200-240 mg/dL Borderline >240 mg/dL High Risk Protein [Mass/Vol] 7.4 g/dL 6.4-8.2 [facility] Work Phone: Triglyceride [Mass/Vol] 118 mg/dL <199 [facility] Work Phone: Comment on above: The drugs N-Acetylcy steine and Metamizole may falsely depress this assay.Serum Triglycerides Reference Interval Normal <150 mg/dL Borderline high 150 - 199 mg/dL High 200 - 499 mg/dL Very High > or = 500 mg/dL Direct bilirubinon Bilirubin.direct [Mass/Vol] 0.16 mg/dL 0.00-0.30 [facility] Work Phone: [phone] Laboratory - Chemistry and C hemistry - challengeon 04-12-2022 ALP [Catalytic activity/Vol] 67 U/L 45-117 [facility] Work Phone: [phone] ALT [Catalytic activity/Vol] 31 U/L 16-61 [facility] Work Phone: Globulin (S) [Mass/Vol] 3.7 g/dL 2.2-4.2 [facility] Work Phone: Serum or plasma albumin maurisio urement (mass/volume)on 04-12-2022 Albumin [Mass/Vol] 3.7 g/dL 3.2-5.0 [facility] Work Phone: Serum or plasma cholesterol in HDL measurement (mass/volume)on 04-12-2022 Cholesterol in HDL [Mass/Vol] 49 mg/dL >40 [facility] Work Phone: Comment on above: The drugs N-Acetylcy steine and Metamizole may falsely depress this assay. Reference Range HDL <40 mg/dL Low HDL Cholesterol HDL >or= 60 mg/dL High HDL Cholesterol Serum or plasma cholesterol in VLDL measurement (mass/volume)on 04-12-2022 Cholesterol in VLDL [Mass/Vol] 24 mg/dL 5-40 [facility] Work Phone: Serum or plasma low density lipoprotein (LDL) cholesterol measurement (mass/volume)on 04-12-2022 Cholesterol in LDL [Mass/Vol] 88 mg/dL 0-130 [facility] Work Phone: Thin prep Papanicolaou smear with manual screeningon 04-12-2022 Thin prep Papanicolaou smear with manual screening 24 U/L 15-37 [facility] Work Phone: No Panel Informationon 03-13 Prostate Specific Antigen Total 0.02 ng/mL 0.0-4.0 [facility] Work Phone: Comment on above: This test was perfor med using the TPSA assay method for [facility] system. Values obtained with differentassay methods cannot be used interchangably.When changing PSA assays in the course of monitoring apatient, additional sequential testing should be carriedout to confirm baseline values. Basophil percentageon 2021 Chloride [Moles/Vol] 105 mmol/L 98-107 [facility] Work Phone: [phone] Glucose [Mass/Vol] 85 mg/dL 74-106 [facility] Work Phone: Potassium [Moles/Vol] 4.2 mmol/L 3.5-5.1 [facility] Work Phone: Sodium [Moles/Vol] 139 mmol/L 136-145 [facility] Work Phone: Laboratory - Chemistry and C hemistry - challengeon 03-05-2022 CO2 [Moles/Vol] 28.0 mmol/L 21.0-32.0 [facility] Work Phone: Urea nitrogen/Creatinine [Mass ratio] 24.4 mg/mg 10-20 [facility] Work Phone: No Panel Informationon 03-05 Estimated GFR (MDRD) Amer 107 mL/min >60 [facility] Work Phone: Comment on above: GFR Calc Estimated GFR (MDRD) Non-Af Amer 88 mL/min >60 [facility] Work Phone: Comment on above: Non- GFR Calc Serum or plasma calcium maurisio urement (mass/volume)on 03-05-2022 Calcium [Mass/Vol] 9.4 mg/dL 8.5-10.1 [facility] Work Phone: Serum or plasma creatinine m easurement (mass/volume)on 03-05-2022 Creatinine [Mass/Vol] 0.90 mg/dL 0.70-1.30 [facility] Work Phone: Comment on above: The validity of the calculated GFR & GFRAA in patients over 70 years has not been determined. Clinical correlation is essential. Serum or plasma urea nitroge n measurement (mass/volume)on 03-05-2022 Urea nitrogen [Mass/Vol] 22 mg/dL 7-18 [facility] Work Phone: Thin prep Papanicolaou smear with manual screeningon 03-05-2022 Thin prep Papanicolaou smear with manual screening 6 5-15 [facility] Work Phone: Basophil percentageon 2021 Bilirubin [Mass/Vol] 0.40 mg/dL 0.20-1.00 [facility] Work Phone: [phone] Comment on above: For patients on eltr ombopag therapy, use of Dimension [place] TBIL is not recommended. Cholesterol [Mass/Vol] 149 mg/dL <200 [facility] Work Phone: [phone] Comment on above: <200 mg/dL Desirable 200-240 mg/dL Borderline >240 mg/dL High Risk Protein [Mass/Vol] 7.1 g/dL 6.4-8.2 [facility] Work Phone: [phone] Triglyceride [Mass/Vol] 486 mg/dL <199 [facility] Work Phone: [phone] Comment on above: The drugs N-Acetylcy steine and Metamizole may falsely depress this assay. TRIGLYCERIDE IS GREATER THAN 400 mg/dL. LDL RESULT IS INVALID AND WILL NOT BE REPORTED.Serum Triglycerides Reference Interval Normal <150 mg/dL Borderline high 150 - 199 mg/dL High 200 - 499 mg/dL Very High > or = 500 mg/dL Direct bilirubinon 2 Bilirubin.direct [Mass/Vol] 0.08 mg/dL 0.00-0.30 [facility] Work Phone: [phone] Laboratory - Chemistry and C hemistry - challengeon 03-01-2022 ALP [Catalytic activity/Vol] 72 U/L 45-117 [facility] Work Phone: [phone] ALT [Catalytic activity/Vol] 32 U/L 16-61 [facility] Work Phone: [phone] Globulin (S) [Mass/Vol] 3.5 g/dL 2.2-4.2 [facility] Work Phone: [phone] Serum or plasma albumin maurisio urement (mass/volume)on 03-01-2022 Albumin [Mass/Vol] 3.6 g/dL 3.2-5.0 [facility] Work Phone: [phone] Serum or plasma cholesterol in HDL measurement (mass/volume)on 03-01-2022 Cholesterol in HDL [Mass/Vol] 47 mg/dL >40 [facility] Work Phone: Comment on above: The drugs N-Acetylcy steine and Metamizole may falsely depress this assay. Reference Range HDL <40 mg/dL Low HDL Cholesterol HDL >or= 60 mg/dL High HDL Cholesterol Serum or plasma cholesterol in VLDL measurement (mass/volume)on 03-01-2022 Cholesterol in VLDL [Mass/Vol] [facility] Work Phone: Comment on above: Test not performed Serum or plasma low density lipoprotein (LDL) cholesterol measurement (mass/volume)on 03-01-2022 Cholesterol in LDL [Mass/Vol] [facility] Work Phone: Comment on above: Test not performed Thin prep Papanicolaou smear with manual screeningon 03-01-2022 Thin prep Papanicolaou smear with manual screening 27 U/L 15-37 [facility] Work Phone: Basophil percentageon 2021 Bilirubin [Mass/Vol] 0.50 mg/dL 0.20-1.00 [facility] Work Phone: Comment on above: For patients on eltr ombopag therapy, use of Dimension [place] TBIL is not recommended. Cholesterol [Mass/Vol] 159 mg/dL <200 [facility] Work Phone: Comment on above: <200 mg/dL Desirable 200-240 mg/dL Borderline >240 mg/dL High Risk Protein [Mass/Vol] 7.0 g/dL 6.4-8.2 [facility] Work Phone: [phone] Triglyceride [Mass/Vol] 135 mg/dL <199 [facility] Work Phone: [phone] Comment on above: The drugs N-Acetylcy steine and Metamizole may falsely depress this assay.Serum Triglycerides Reference Interval Normal <150 mg/dL Borderline high 150 - 199 mg/dL High 200 - 499 mg/dL Very High > or = 500 mg/dL Direct bilirubinon 2 Bilirubin.direct [Mass/Vol] 0.15 mg/dL 0.00-0.30 [facility] Work Phone: [phone] Laboratory - Chemistry and C hemistry - challengeon 01-24-2022 ALP [Catalytic activity/Vol] 76 U/L 45-117 [facility] Work Phone: ALT [Catalytic activity/Vol] 38 U/L 16-61 [facility] Work Phone: [phone] Globulin (S) [Mass/Vol] 3.5 g/dL 2.2-4.2 [facility] Work Phone: [phone] Serum or plasma albumin maurisio urement (mass/volume)on 01-24-2022 Albumin [Mass/Vol] 3.5 g/dL 3.2-5.0 [facility] Work Phone: Serum or plasma cholesterol in HDL measurement (mass/volume)on 01-24-2022 Cholesterol in HDL [Mass/Vol] 49 mg/dL >40 [facility] Work Phone: Comment on above: The drugs N-Acetylcy steine and Metamizole may falsely depress this assay. Reference Range HDL <40 mg/dL Low HDL Cholesterol HDL >or= 60 mg/dL High HDL Cholesterol Serum or plasma cholesterol in VLDL measurement (mass/volume)on 01-24-2022 Cholesterol in VLDL [Mass/Vol] 27 mg/dL 5-40 [facility] Work Phone: Serum or plasma low density lipoprotein (LDL) cholesterol measurement (mass/volume)on 01-24-2022 Cholesterol in LDL [Mass/Vol] 83 mg/dL 0-130 [facility] Work Phone: Thin prep Papanicolaou smear with manual screeningon 01-24-2022 Thin prep Papanicolaou smear with manual screening 28 U/L 15-37 [facility] Work Phone: CT Guidance Radiology Therap yon 06-23-2019 Patient Name: ITALO VELASQUEZ ---CT--- Exam Date/Time 06/22/2019 14:30:[address] Nonbill Guide Rad Therapy Ordering Physician Ap BAKER DESIREE E Accession Number [id number] Reason For Exam PROSTATE CA Report CT pelvis without contrast for radiation treatment planning HISTORY: Prostate cancer Protocol: 3 mm axial images without intravenous contrast No bowel inflammation or bowel obstruction. No free fluid. No lymphadenopathy. The bladder is unremarkable. A large lipoma is noted in the right anterior gluteal muscles. IMPRESSION: Large right gluteal lipoma. Report Dictated on --- Final --- Dictated: 06/23/2019 9:08 am Dictating Physician: MD DAY MALAY Signed Date and Time: 06/23/2019 9:09 am Signed by: MD DYA MALAY Transcribed Date and Time: 06/23/2019 9:08 [employer] [place], [place], [facility] Incoming Radiology Results From [facility] - 06/23/2019 9:10 AM EST Patient Name: ITALO VELASQUEZ ---CT--- Exam Date/Time 06/22/2019 14:30:[address] Nonbill Guide Rad Therapy Ordering Physician Ap BAKER, GINA Grace Accession Number [id number] Reason For Exam PROSTATE CA Report CT pelvis without contrast for radiation treatment planning HISTORY: Prostate cancer Protocol: 3 mm axial images without intravenous contrast No bowel inflammation or bowel obstruction. No free fluid. No lymphadenopathy. The bladder is unremarkable. A large lipoma is noted in the right anterior gluteal muscles. IMPRESSION: Large right gluteal lipoma. Report Dictated on --- Final --- Dictated: 06/23/2019 9:08 am Dictating Physician: MD DAY MALAY Signed Date and Time: 06/23/2019 9:09 am Signed by: MD DAY MALAY Transcribed Date and Time: 06/23/2019 9:08 [place] CT Nonbill Guide Rad Therapy on 06-23-2019 CT Nonbill Guide Rad Therapy Patient Name: ITALO VELASQUEZ CT Exam Date/Time 06/22/2019 14:30:[address] Nonbill Guide Rad Therapy Ordering Physician Ap BAKER DESIREE E Accession Number [id number] Reason For Exam PROSTATE CA Report CT pelvis without contrast for radiation treatment planning HISTORY: Prostate cancer Protocol: 3 mm axial images without intravenous contrast No bowel inflammation or bowel obstruction. No free fluid. No lymphadenopathy. The bladder is unremarkable. A large lipoma is noted in the right anterior gluteal muscles. IMPRESSION: Large right gluteal lipoma. Report Dictated on Final Dictated: 06/23/2019 9:08 am Dictating Physician: MD DAY MALAY Signed Date and Time: 06/23/2019 9:09 am Signed by: MD DAY MALAY Transcribed Date and Time: 06/23/2019 9:08 Normal [facility] Radiation Onc Init [place] Radiation Onc Init Cons [facility] Radiation Oncology RADIATION ONCOLOGY INITIAL CONSULTATION PATIENT: Italo Velasquez DATE OF SERVICE: 06/11/2019 [facility] MRN: : [id number] AGE: 69 PRIMARY SITE: C61 prostate, adenocarcinoma, Eldon's grade group 2 (3+4) with original PSA of 8.47 on 01/27/2018. STAGE: cT1c N0 M0; pT3b N0 M0, IIIB HISTORY OF PRESENT ILLNESS: Mr. Velasquez is a 69-year-old male with a history of rising PSA. On 01/27/2018 it was 8.47. On 04/08/2018 he underwent prostate biopsy. This revealed 6 out of 12 cores to be involved. All were on the left side. It range from a [place] score 6 (3+3) to a Milwaukee score 7 (3+4). Treatment options were detailed. He pursued surgery. On 06/16/2018 he underwent a robotic radical prostatectomy, bilateral pelvic lymphadenectomy and complete sphincteric ANC [place] reconstruction. Patient notes that he is healed well following this. He is doing exercises regularly to help decrease the incontinence. PSA levels have continued to be monitored. On 09/25/2018 it was less than 0.01. On 12/25/2018 it was 0.01. On 03/26/2019 it was 0.04 and on 06/04/2019 it was 0.06. Patient has been referred for consideration of radiation therapy. He is scheduled to see urology next week. He notes that he may be put on hormone therapy. He is accompanied by his . PAST MEDICAL HISTORY: Hypertension, depression and anxiety, hyperlipidemia, restless leg syndrome, sleep apnea for which he uses CPAP. Precancerous skin lesions have been removed. PAST SURGICAL HISTORY: Skin lesion removal as above: Colonoscopy in 2018: Prostate biopsy on 04/08/2018: Prostate surgery on 06/16/2018. SOCIAL HISTORY: Patient is . He is retired from factory work. He worked for [employer]. No tobacco or alcohol intake. FAMILY HISTORY: Father had colon cancer. Paternal uncle with throat cancer. Paternal aunt with ovarian cancer. Maternal side of the family had cardiac disease. ALLERGIES: acetominophen MEDICATIONS: 1. aspirin - 1 Tablet Oral Daily 2. Ativan - 1 Tablet Oral Daily 3. B Complex - 1 Capsule Oral Daily 4. Breo Ellipta - Inhalation 5. cholecalciferol (vitamin D3) - 1 Capsule Oral Daily 6. coQ10 (ubiquinol) - 1 Capsule Oral Daily 7. fluticasone furoate-vilanterol - Inhalation 8. Lexapro - 1 Tablet Oral Daily 9. lisinopril - 1 Tablet Oral Twice a Day 10. Neurontin - 1 Capsule Oral Daily 11. niacin - 1,000 mg PO Daily 12. Sinclair 3 - 1 Capsule Oral Daily 13. Zocor - 1 Tablet Oral Every day before sleep Last Reconciled by Kimi Santos RN on 06/11/2019 SUMMARY OF SIGNIFICIANT X-RAY/LABORATORY FINDINGS: PSA levels as above. No radiology studies. AUA score is 1. Mayo score is 0. REVIEW OF SYSTEMS: Pain: 0 - No pain Constitutional: Good appetite. Good energy level. No fever, chills, sweats, or headaches. Vision: Stable. Wears glasses. Ears Nose Throat and Mouth: No hearing loss. No mouth, throat, or swallowing issues. Respiratory: No shortness of breath at rest. No dyspnea on exertion. No cough. No paroxysmal nocturnal dyspnea or orthopnea. Not on oxygen. Cardiovascular: No chest pain. No heart racing. No palpitations. Gastrointestinal: No nausea, vomiting, diarrhea, or constipation. No reflux. Genitourinary: No dysuria, hematuria, frequency. Occasional nocturia. Has a little bit of urinary incontinence still. He wears a depends. Musculoskeletal: No arthritic symptoms. No swelling. Good range of motion. Skin: No rashes, open areas, or pruritus. Neurological: No numbness, tingling, or weakness. Psychiatric: History of anxiety or depression. Hematology/Lymphatic: Blood counts okay. No anemia. No blood transfusion. Allergy/Immunologic: No connective tissue disease, such as rheumatoid arthritis, scleroderma, or lupus. Endocrine: No thyroid or diabetic issues. No history of radiation or chemotherapy treatments. KPS: 100 - Normal; no complaints; no evidence of disease PHYSICAL EXAMINATION: VITALS: Temperature 98 F (06/11/19), Pulse 57 (06/11/19), Respirations 16 (06/11/19), Blood Pressure 153/82 (06/11/19), Height 70 inches (06/11/19). Weight is 177.4 pounds. GENERAL: Awake, alert, oriented, no anxiety, dressed appropriately, appears of stated age. Ambulates without assistance. Speech pattern fluent. Accompanied by . HEAD AND NECK: Oral without mass or ulceration. Good tongue movement. No exudate or thrush. Nonicteric sclera. LUNGS: Clear to auscultation. No rales or rhonchi. HEART: Regular rate and rhythm, S1-S2 noted no murmur. NECK: Symmetric. No thyroid nodule. NODES: No neck, supraclavicular, infraclavicular adenopathy. ABDOMEN: Soft, nontender, nondistended. No hepatosplenomegaly, no suspicious mass. PROSTATE: Prostate has been removed. Prostate bed is without nodularity. Rectal mucosa is negative up to approximately 6 cm level. MUSCULOSKELETAL: No swelling. No calf tenderness. Motor strength 5/5 in upper and lower extremities with sensation intact to light touch. No spine or posterior chest wall tenderness. No dullness to percussion. SKIN: Without excessive bruising. No open areas or rash. NEURO: PERRLA, EOMI. CN 2-12 grossly intact except full vision perea were not tested. Able to hear light finger rub bilaterally. IMPRESSION: Mr. Velasquez is a 69-year-old gentleman who presents with prostate cancer. He underwent surgery about a year ago. The PSA is starting to slowly rise but is still very small. We spoke about possible eligibility for the [facility] 006 trial. Patient is not interested in pursuing. We discussed the use of radiation therapy to the pelvic region. We went over the setup, projected course of therapy of approximately 7 to 8 weeks with conventional fractionation. Side effects while on therapy include tiredness, skin reaction, hair loss in the treatment region, diarrhea, cramping, urinary symptoms, low blood counts. Long-term risks include skin changes, hair loss in the treatment region, radiation proctitis, radiation cystitis, intestinal injury such as bowel obstruction or fistula formation, bone weakening, nerve injury, impotency which Mr. Velasquez already is experiencing, secondary malignancy and the inability to control the disease. Patient is scheduled to see urology at the beginning of next week. I spoke to Dr. soriano about the case today. He will refer Mr. Velasquez back for radiation when he seen by urology next week. PLAN: Under CT guidance with IMRT technique, the prostate bed will be treated with conventional fractionation for approximately 7 to 8 weeks of therapy. We thank you for the consultation. Gina Baker MD, FACRO Electronically signed by: Gina Baker MD , T: 4:34 PM CC: Kannan Carlton DO, Patel Bo MD [facility] Department of Radiation Oncology is an Accredited Facility of the [employer] (ACR). This document was completed utilizing speech recognition software. Grammatical errors, random word insertions, pronoun errors, and incomplete sentences are an occasional consequence of this system due to software limitations, ambient noise, and hardware issues. Any formal questions or concerns about the content, text or information contained within the body of this dictation should be directly addressed to the provider for clarification. PATIENT:Italo Velasquez : 1950 cc: Patel Bo MD [address] [facility] [address] Kannan Carlton MD [address] [facility]. [facility] [address] Normal [facility] Gram stain for investigation of transfusion reaction Microscopic observation Gram stain Nom (Unsp spec) [facility] Work Phone: Microbial respiratory cultur e Bacteria identified Respiratory culture Nom (Unsp spec) [facility] Work Phone: Vital Signs Date Time Vital Sign Value Performing Clinician Faci lity 09-24-2024 11:36-0500 Body height 177.8 cm Patel Bo MD Work Phone: [facility] 09-24-2024 11:36-0500 Body mass index (BMI) [Ratio] 25.97 kg/m2 Patel oB MD Work Phone: [facility] 09-24-2024 11:36-0500 Body weight 82.1 kg Patel Bo MD Work Phone: [facility] 09-24-2024 11:36-0500 Diastolic blood pressure 72 mm[Hg] Patel Bo MD Work Phone: [facility] 09-24-2024 11:36-0500 Heart rate 76 /min Patel Bo MD Work Phone: [facility] 09-24-2024 11:36-0500 Systolic blood pressure 122 mm[Hg] Patel Bo MD Work Phone: [facility] 03-19-2024 10:29-0400 Body height 177.8 cm Patel Bo MD Work Phone: [facility] 03-19-2024 10:29-0400 Body mass index (BMI) [Ratio] 27.12 kg/m2 Patel Bo MD Work Phone: [facility] 03-19-2024 10:29-0400 Body weight 85.73 kg Patel Bo MD Work Phone: [facility] 09-19-2023 10:37-0500 Body height 177.8 cm Patel Bo MD Work Phone: [facility] 09-19-2023 10:37-0500 Body mass index (BMI) [Ratio] 27.12 kg/m2 Patel Bo MD Work Phone: [facility] 09-19-2023 10:37-0500 Body weight 85.73 kg Patle Bo MD Work Phone: [facility] 09-19-2023 10:37-0500 Diastolic blood pressure 67 mm[Hg] Patel Bo MD Work Phone: [facility] 09-19-2023 10:37-0500 Heart rate 54 /min Patel Bo MD Work Phone: [facility] 09-19-2023 10:37-0500 Systolic blood pressure 126 mm[Hg] Patel Bo MD Work Phone: [facility] 06-12-2023 09:50-0400 Body height 177.8 cm Gina Baker MD Work Phone: [facility] 06-12-2023 09:50-0400 Body mass index (BMI) [Ratio] 27.2 kg/m2 Gina Baker MD Work Phone: [facility] 06-12-2023 09:50-0400 Body temperature 96.8 [degF] Gina Baker MD Work Phone: [facility] 06-12-2023 09:50-0400 Body weight 86 kg Gina Baker MD Work Phone: [facility] 06-12-2023 09:50-0400 Diastolic blood pressure 74 mm[Hg] Gina Baker MD Work Phone: [facility] 06-12-2023 09:50-0400 Heart rate 54 /min Gina Baker MD Work Phone: [facility] 06-12-2023 09:50-0400 Respiratory rate 20 /min Gina Baker MD Work Phone: [facility] 06-12-2023 09:50-0400 SaO2% (BldA) [Mass fraction] 95 % Gina Baker MD Work Phone: [facility] 06-12-2023 09:50-0400 Systolic blood pressure 143 mm[Hg] Gina Baker MD Work Phone: [facility] 01-23-2022 07:28-0400 Body height 177.[address] Zaid Kirby Work Phone: [facility] Work Phone: 01-23-2022 07:28-0400 Body mass index (BMI) [Ratio] 26.4 kg/m2 Dr. Zaid Kirby Work Phone: [facility] Work Phone: 01-23-2022 07:28-0400 Body weight 83.[address] Zaid Kirby Work Phone: [facility] Work Phone: 01-23-2022 07:28-0400 Diastolic blood pressure 70 mm[Hg] Dr. Zaid Kirby Work Phone: [facility] Work Phone: 01-23-2022 07:28-0400 Heart rate 68 /min Dr. Zaid Kirby Work Phone: [facility] Work Phone: 01-23-2022 07:28-0400 Respiratory rate 16 /min Dr. Zaid Kirby Work Phone: [facility] Work Phone: 01-23-2022 07:28-0400 SaO2% (BldA) [Mass fraction] 95 % Dr. Zaid Kirby Work Phone: [facility] Work Phone: 01-23-2022 07:28-0400 Systolic blood pressure 139 mm[Hg] Dr. Zaid Kirby Work Phone: [facility] Work Phone: Encounters Encounter Date Encounter Type Care Provider Facility Start: 09-24-2024 End: 09-24-2024 ambulatory PATEL BO [facility] Start: 09-24-2024 End: 09-24-2024 Office outpatient visit 15 minutes Patel Bo MD Work Phone: [facility] [place] Comment on above: Prostate cancer (HCC ) (Primary Dx); Rising PSA following treatment for malignant neoplasm of prostate; History of external beam radiation therapy Start: 09-04-2024 End: 09-04-2024 ambulatory Chalon Rinku Facility:[facility] Start: 08-26-2024 End: 08-26-2024 ambulatory Chalon Rinku Facility:[facility] Start: 08-17-2024 End: 08-17-2024 ambulatory Chalon Rinku Facility:[facility] Start: 04-21-2024 ambulatory Chalon Rinku Facility:[facility] Start: 04-14-2024 ambulatory Dardanelle Alpa Facility:[facility] Start: 04-14-2024 End: 04-14-2024 ambulatory Hector Alpa Facility:[facility] Start: 03-19-2024 End: 03-19-2024 Office outpatient visit 25 minutes Patel Bo MD Work Phone: [facility] Comment on above: Prostate cancer (HCC ) (Primary Dx); Rising PSA following treatment for malignant neoplasm of prostate; Stress incontinence Start: 03-19-2024 End: 03-19-2024 ambulatory PATEL BO [facility] Start: 03-12-2024 End: 03-12-2024 ambulatory Hector Alpa Facility:[facility] Start: 03-03-2024 End: 03-03-2024 ambulatory Chalon Rinku Facility:[facility] Start: 02-05-2024 End: 02-05-2024 ambulatory Chalon Rinku Facility:[facility] Start: 09-19-2023 End: 09-19-2023 Office outpatient visit 25 minutes Patel Bo MD Work Phone: [facility] Comment on above: Prostate cancer (HCC ) (Primary Dx); Rising PSA following treatment for malignant neoplasm of prostate; Stress incontinence Start: 08-26-2023 Telephone encounter Patel joshua MD Work Phone: [facility] Start: 06-21-2023 End: 06-21-[address] [facility] Work Phone: Start: 06-21-2023 End: 06-21-[address] [facility] Work Phone: Start: 06-19-2023 End: 06-19-[address] [facility] Work Phone: Start: 06-19-2023 End: 06-19-[address] [facility] Work Phone: Start: 06-12-2023 End: 06-12-2023 Office outpatient visit 15 minutes Gina Baker MD Work Phone: [facility] Comment on above: Prostate cancer (HCC ) (Primary Dx) Start: 03-15-2023 End: 03-15-[address] [facility] Work Phone: Start: 01-10-2023 End: 01-10-[address] [facility] Work Phone: Start: 01-10-2023 End: 01-10-[address] [facility] Start: 12-07-2022 Documentation procedure Akila Jones CORPORATE RISK ANALYST - DECORATIVE ENGRAVER APPRENTICE Work Phone: [facility] Comment on above: Results Start: 11-20-2022 End: 11-20-[address] [facility] Work Phone: Start: 11-20-2022 End: 11-20-[address] [facility] Start: 11-09-2022 End: 11-09-[address] [facility], [facility] Start: 10-23-2022 End: 10-23-[address] [facility] Work Phone: Start: 10-23-2022 End: 10-23-[address] [facility] Start: 08-22-2022 End: 08-22-[address] [facility] Work Phone: Start: 08-22-2022 End: 08-22-[address] [facility], Specimen Start: 08-21-2022 End: 08-21-[address] [facility] Work Phone: Start: 08-21-2022 End: 08-21-[address] [facility], Specimen Start: 08-20-2022 End: 08-20-[address] [facility] Work Phone: Start: 08-20-2022 End: 08-20-[address] [facility], Specimen Start: 08-17-2022 End: 08-17-[address] [facility] Work Phone: Start: 08-17-2022 End: 08-17-[address] [facility], [facility] Start: 08-01-2022 End: 08-01-[address] [facility] Work Phone: Start: 08-01-2022 End: 08-01-[address] [facility], Specimen Start: 07-04-2022 End: 07-04-[address] [facility] Work Phone: Start: 07-04-2022 End: 07-04-[address] [facility] Start: 05-08-2022 ambulatory [facility] Start: 04-17-2022 End: 04-17-[address] Zaid Kirby Work Phone: [facility] Work Phone: Start: 04-17-2022 End: 04-17-[address] Zaid Kirby Work Phone: [facility] Start: 04-12-2022 End: 04-12-[address] Zaid Kirby Work Phone: [facility] Start: 03-13-2022 End: 03-13-2022 [address] [facility] Work Phone: Start: 03-13-2022 End: 03-13-[address] Zaid Kirby Work Phone: [facility] Start: 03-05-2022 End: 03-05-[address] Zaid Kirby Work Phone: [facility], [facility] Start: 03-01-2022 End: 03-01-[address] [facility] Start: 01-24-2022 End: 01-24-[address] [facility] Start: 01-23-2022 End: 01-23-[address] Zaid Kirby Work Phone: [facility] Start: 04-06-2020 End: 04-06-2020 Subsequent hospital visit by physician Gina Baker Work Phone: [facility] Start: 09-01-2019 End: 09-01-2019 Subsequent hospital visit by physician Gina Baker MD Work Phone: [facility] Start: 08-31-2019 End: 08-31-2019 Subsequent hospital visit by physician Gina Baker MD Work Phone: [facility] Start: 08-28-2019 End: 08-28-2019 Subsequent hospital visit by physician Gina Baker MD Work Phone: [facility] Start: 08-27-2019 End: 08-27-2019 Subsequent hospital visit by physician Gina Baker MD Work Phone: [facility] Start: 08-26-2019 End: 08-26-2019 Subsequent hospital visit by physician Gina Baker MD Work Phone: [facility] Start: 08-25-2019 End: 08-25-2019 Subsequent hospital visit by physician Gina Baker MD Work Phone: [facility] Start: 08-24-2019 End: 08-24-2019 Subsequent hospital visit by physician Gina Baker MD Work Phone: [facility] Start: 08-21-2019 End: 08-21-2019 Subsequent hospital visit by physician Gina Baker MD Work Phone: [facility] Start: 08-20-2019 End: 08-20-2019 Subsequent hospital visit by physician Gina Baker MD Work Phone: [facility] Start: 08-18-2019 End: 08-18-2019 Subsequent hospital visit by physician Gina Baker MD Work Phone: [facility] Start: 08-17-2019 End: 08-17-2019 Subsequent hospital visit by physician Gina Baker MD Work Phone: [facility] Start: 08-14-2019 End: 08-14-2019 Subsequent hospital visit by physician Gina Baker MD Work Phone: [facility] Start: 08-13-2019 End: 08-13-2019 Subsequent hospital visit by physician Gina Baker MD Work Phone: [facility] Start: 08-11-2019 End: 08-11-2019 Subsequent hospital visit by physician Gina Baker MD Work Phone: [facility] Start: 08-10-2019 End: 08-10-2019 Subsequent hospital visit by physician Gina Baker MD Work Phone: [facility] Start: 08-07-2019 End: 08-07-2019 Subsequent hospital visit by physician Gina Baker MD Work Phone: [facility] Start: 08-06-2019 End: 08-06-2019 Subsequent hospital visit by physician Gina Baker MD Work Phone: [facility] Start: 08-03-2019 End: 08-03-2019 Subsequent hospital visit by physician Gina Baker MD Work Phone: [facility] Start: 07-30-2019 End: 07-30-2019 Subsequent hospital visit by physician Gina Baker MD Work Phone: [facility] Start: 07-29-2019 End: 07-29-2019 Subsequent hospital visit by physician Gina Baker MD Work Phone: [facility] Start: 07-23-2019 End: 07-24-2019 Subsequent hospital visit by physician Gina Baker MD Work Phone: [facility] Start: 07-22-2019 End: 07-22-2019 Subsequent hospital visit by physician Gina Baker MD Work Phone: [facility] Start: 07-20-2019 End: 07-21-2019 Subsequent hospital visit by physician Gina Baker MD Work Phone: [facility] Start: 07-17-2019 End: 07-17-2019 Subsequent hospital visit by physician Gina Baker Work Phone: [facility] Start: 07-16-2019 End: 07-16-2019 Subsequent hospital visit by physician Gina Baker Work Phone: [facility] Start: 07-15-2019 End: 07-15-2019 Subsequent hospital visit by physician Gina Baker Work Phone: [facility] Start: 07-14-2019 End: 07-14-2019 Subsequent hospital visit by physician Gina Baker Work Phone: [facility] Start: 07-13-2019 End: 07-13-2019 Subsequent hospital visit by physician Gina Baker Work Phone: [facility] Start: 07-08-2019 End: 07-08-2019 Subsequent hospital visit by physician Gina Baker Work Phone: [facility] Start: 07-07-2019 End: 07-07-2019 Subsequent hospital visit by physician Gina Negroncals Work Phone: [facility] Start: 07-06-2019 End: 07-06-2019 Subsequent hospital visit by physician Gina Negroncals Work Phone: [facility] Start: 07-05-2019 End: 07-05-2019 Subsequent hospital visit by physician Gina Grace Doncals Work Phone: [facility] Start: 07-03-2019 End: 07-03-2019 Subsequent hospital visit by physician Gina Baker Work Phone: [facility] Start: 07-01-2019 End: 07-01-2019 Subsequent hospital visit by physician Gina Negroncals Work Phone: [facility] Start: 06-22-2019 End: 06-22-2019 Subsequent hospital visit by physician Gina Grace Doncals Work Phone: [facility] Start: 06-11-2019 End: 06-11-2019 Subsequent hospital visit by physician Gina Negroncals Work Phone: [facility] Procedures Date Procedure Procedure Detail Performing Clinician Start: 11-09-2022 Computed tomography of abdomen and pelvis with contrast Start: 08-17-2022 CT of chest without contrast Start: 07-04-2022 Plain chest X-ray Start: 06-23-2019 CT [facility] Gina Baker Work Phone: Acid fast bacilli culture Cytopathology proced ure, preparation of smear, genital source Investigation of transfusion reaction Investigation of transfusion reaction Investigation of transfusion reaction Investigation of transfusion reaction Respiratory microbia l culture Respiratory microbia l culture Respiratory microbia l culture Respiratory microbia l culture Plan of Treatment Date Care Activity Detail Author Start: 02-11-2027 DTaP/Tdap/Td vaccine (3 - Td) DTaP/Tdap/Td vaccine (3 - Td) [place] Start: 02-11-2027 DTaP/Tdap/Td Vaccine s (3 - Td or Tdap) DTaP/Tdap/Td Vaccines (3 - Td or Tdap) [facility] Start: 03-25-2025 End: 03-25-2025 Patient encounter procedure 03/25/2025 11:40 AM EDT Office Visit [facility] Urology [facility] [address] [place] [address] Patel Bo MD [address] [place] [address] [facility] [place] Start: 03-24-2025 End: 09-24-2025 PSA, total and free PSA, total and free Lab Routine Prostate cancer (HCC) Expected: 03/24/2025 (Approximate), Expires: 09/24/2025 [facility] [employer] Work Phone: Comment on above: Expected: 03/24/2025 (Approximate), Expires: 09/24/2025 Start: 09-24-2024 End: 09-24-2024 Patient encounter procedure 09/24/2024 11:30 AM EST Office Visit [facility] [address] [place] [address] Patel Bo MD [address] [place], [place] [id number] [facility] Start: 09-19-2024 End: 03-19-2025 PSA, total and free PSA, total and free Lab Routine Prostate cancer (HCC) Expected: 09/19/2024 (Approximate), Expires: 03/19/2025 [facility] [employer] Work Phone: Comment on above: Expected: 09/19/2024 (Approximate), Expires: 03/19/2025 Start: 04-12-2024 COVID-19 Vaccine ( season) COVID-19 Vaccine ( season) [facility] Start: 04-12-2024 Influenza vaccination Influenza Vacc ine (#1) [facility] Start: 03-19-2024 End: 09-19-2024 PSA, total and free [facility] [employer] Work Phone: Comment on above: Expected: 03/19/2024 (Approximate), Expires: 09/19/2024 Start: 03-19-2024 End: 03-19-2024 Patient encounter procedure 03/19/2024 10:30 AM EDT Office Visit [facility] [address] [place] [phone] Patel Bo MD [address] [place], [place] [id number] [facility] Start: 09-19-2023 End: 09-19-2023 Patient encounter procedure 09/19/2023 10:30 AM EST Office Visit [facility] [address] [place] [phone] Patel Bo MD [address] [place] [address] [facility] Start: 04-12-2023 COVID-19 Vaccine ( season) COVID-19 Vaccine () [facility] Start: 04-12-2023 Influenza vaccination Influenza Vacc ine (#1) [facility] Start: 03-26-2023 End: 03-26-2023 Patient encounter procedure 03/26/2023 11:50 AM EDT Office Visit [facility] [address] [place] [phone] Patel Bo MD [address] [place] [address] [facility] Start: 08-22-2022 COVID-19 Vaccine (5 - Pfizer series) COVID-19 Vaccine (5 - Pfizer series) [facility] Start: 10-09-2020 Prostate specific antigen measurement PSA counseling [place], [place] Start: 05-05-2020 End: 05-05-2020 Office Visit 05/05/2020 Office Visit Urology Liliana Monsalve APRN - CNP [address] [place] [address] [phone] [facility] [place] Start: 04-12-2020 Influenza vaccination Flu vaccine (# 1) [place] Start: 10-23-2019 End: 10-23-2019 Patient encounter procedure 10/23/2019 Office Visit Urology Martha Liz PA-C [address] [place] [address] [phone] [facility] [place] Start: 10-14-2019 End: 10-14-2019 Patient encounter procedure 10/14/2019 Office Visit UrologMartha Shepard PA-C [address] [place] [address] [phone] [facility] [place] Start: 09-14-2019 End: 09-14-2019 Office Visit 09/14/2019 Office Visit Martha Bello PA-C [address] [place] [address] [phone] [facility] [place] Start: 06-15-2019 End: 06-15-2019 Office Visit 06/15/2019 Office Visit Martha Bello PA-C [address] [place] [address] [phone] [facility] [place] Start: 06-09-2019 Creatinine measurement Creatinine mo nitoring [place] Start: 06-09-2019 Creatinine monitoring Creatinine mon itoring [place] Start: 06-09-2019 Potassium monitoring Potassium monit oring [place] Start: 04-12-2019 Influenza vaccination Flu vaccine (# 1) [place] Start: 02-01-2019 Annual Wellness Visi t (AWV) Annual Wellness Visit (AWV) [place] Start: 04-25-2012 Shingles Vaccine (2 of 3) Shingles Vaccine (2 of 3) [place] Start: 2012 RSV Immunization age d 60 or older (1 - 1-dose 60+ series) RSV Immunization aged 60 or older (1 - 1-dose 60+ series) [facility] Start: 2012 RSV Immunization for Adults (1 - Risk 60-74 years 1-dose series) RSV Immunization for Adults (1 - Risk 60-74 years 1-dose series) [facility] Start: 01-17-2002 Colon cancer screen colonoscopy Colon cancer screen colonoscopy [place] Start: 01-17-2002 Screening for malign ant neoplasm of colon Colon cancer screen colonoscopy [place] Start: 01-17-1970 Diabetes mellitus screening Diabetes Screening [facility] Start: 01-17-1970 Hepatitis C screening Hepatitis C Sc reetiffanie [facility] Start: 1964 Depression Monitoring Depression Mon lewis [facility] Start: 1964 Depression Screening Depression Scre mark [facility] Start: 01-17-1962 Lipid panel Lipid screen [facility], [place] Start: 01-17-1962 Lipid screen Lipid screen [facility], [place] Start: 1950 Hepatitis C screen Hepatitis C scree n [facility], [place] Start: 1952 Hepatitis C screening Hepatitis C sc rajeevn [place], [place] Start: 1950 Lipid panel Lipid Panel [facility] Start: 1950 Medicare Annual Well ness (AWV) Medicare Annual Wellness (AWV) [facility] Start: 1950 Screening for malign ant neoplasm of colon [facility] Acid fast bacilli culture [facility] Acid fast bacilli culture [facility] Acid fast bacilli culture [facility] Acid Fast Bacilli Culture Acid Fast Bacilli Culture [facility] Acid Fast Bacilli Smear Acid Fast Bacilli Smear 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 Mycobacterium sp identified in Unspecified specimen by Organism specific culture [facility] Mycobacterium sp identified in Unspecified specimen by Organism specific culture [facility] Immunizations Immunization Date Immunization Notes Care Provider [facility] 05-23-2022 influenza virus vaccine, unspecified formulation Akila Jones CORPORATE RISK ANALYST - DECORATIVE ENGRAVER APPRENTICE Work Phone: [facility] 04-22-2022 Covid-19, Moderna Bivalent Booster, (Age 6y-11y) Akila Jones CORPORATE RISK ANALYST - DECORATIVE ENGRAVER APPRENTICE Work Phone: [facility] 05-30-2021 Pfizer SARS-CoV-2 Vaccination Akila Victorstowski CORPORATE RISK ANALYST - DECORATIVE ENGRAVER APPRENTICE Work Phone: [facility] 11-08-2020 Covid (Pfizer) Dr. Zaid morris Work Phone: [facility] 10-18-2020 Covid (Pfizer) Dr. Zaid morris Work Phone: [facility] 02-11-2017 tetanus toxoid, reduced diphtheria toxoid, and acellular pertussis vaccine, adsorbed Dr. Zaid Kirby Work Phone: [facility] Payers Date Payer Category Payer Self-pay [id number] 2023 Medicare supplementa l policy (as second payer) [employer] MEDICARE SUPPLEMENT [id number] 2023 Private Health Insurance 2018 Medicare MEDICARE MEDICAR E PART A AND B xxxxxxxxxxx 2018-Present [phone] [address] [address] [place] [address] xxxxxxxxxxx [id number] 2018 Medicare 2018 Unknown [employer] CIGNA MEDICARE SUPP xxxxxxxxxx 2018-Present [phone] [address] [address] [place] [address] xxxxxxxxxx [id number] 2018 Unknown [id number] 2018 Medicare [id number] 2012 Private Health Insurance [id number] 1950 Unknown [id number] Unknown [id number] Unknown [id number] Unknown [id number] [id number] Unknown [id number] Unknown [id number] Unknown [id number] Unknown [id number] Unknown [id number] Unknown [id number] Unknown [id number] Social History Date Type Detail Facility Start: 04-09-2019 End: 02-01-2020 Tobacco smoking status WVIS Never smoker [employer] Phone: Start: 04-09-2019 End: 09-24-2024 Alcohol intake Current non-drinker of alcohol (finding) [place], [place] Start: 1950 Sex Assigned At Not on file [facility] [employer] [facility] Start: 02-01-2020 Tobacco use and exposure Never used [facility] Start: 04-09-2019 End: 09-24-2024 Alcohol intake No [facility] Start: 01-23-2022 End: 01-21-2023 Tobacco smoking status NHIS Unknown if ever smoked [facility] Start: 02-17-2021 None [facility] Start: 1950 Sex Assigned At Male [facility] Start: 01-03-2023 End: 09-24-2024 History of Social function [facility] Start: 03-12-2022 Sex Male (finding) [facility] Goals Date Patient Goal Desired Activity /State Clinical Notes 12-07-2022 to 09-24-2024 Patel Bo MD - 09/24/2024 11:30 AM Jerry Bo MD - 03/19/2024 10:30 AM Micki Bo MD - 09/19/2023 10:30 AM ESTTelephone Encounter - Tatiana Harding - 08/26/2023 9:50 AM EST Note Date & Type Note Facility 09-24-2024 History of Presen t illness Narrative Images from the original note were not included. Patel Bo MD 09/24/2024 at 12:00 PM Office follow up PATIENT NAME: Italo Velasquez DATE OF : 1950 TODAY'S DATE: 09/24/2024 CHIEF COMPLAINT: Chief Complaint Patient presents with Prostate Cancer PSA prior Subjective: Mr. Velasquez is a 74 y.o. male who presents to the office for follow up of prostate cancer He did have robotic assisted laparoscopic radical prostatectomy and bilateral pelvic lymph node dissection 06/16/2018. Pathology from this was edlon 3+4, pt3b, with a rising PSA. He completed salvage radiation. 08/2019 He has lost 20 lbs through diet and exercise He is voiding ok Denies hematuria Review of Systems Gastrointestinal: Negative for abdominal distention and abdominal pain. Genitourinary: Negative for difficulty urinating, flank pain, frequency and hematuria. Past Medical History: Past Medical History: Diagnosis Date Asthma Cancer (CMS/HCC) (HCC) 2018 prostate Hyperlipidemia Hypertension PIPE on CPAP Past Surgical History: Past Surgical History: Procedure Laterality Date COLONOSCOPY PROSTATECTOMY 06/16/2018 Robotic Assisted Laparoscopic Prostatectomy with Bilateral Pelvic Lymph Node Dissection Allergies: Acetaminophen and Atorvastatin Social History: Social History Socioeconomic History Marital status: Spouse name: Not on file Number of children: Not on file Years of education: Not on file Highest education level: Not on file Occupational History Not on file Tobacco Use Smoking status: Never Smokeless tobacco: Never Vaping Use Vaping status: Never Used Substance and Sexual Activity Alcohol use: No Drug use: No Sexual activity: Not Currently Partners: Female Comment: Other Topics Concern Not on file Social History Narrative Not on file Social Drivers of Health Financial Resource Strain: Not on file Food Insecurity: Not on file Transportation Needs: Not on file Physical Activity: Not on file Stress: Not on file Social Connections: Not on file Intimate Partner Violence: Not on file Housing Stability: Not on file Family History: Medications Prior to Admission medications Medication Sig Start Date End Date Taking? Authorizing Provider Aspirin 81 MG capsule Take 81 mg by mouth daily. Yes Historical Provider, b complex vitamins capsule Take 1 capsule by mouth daily. Yes Historical Provider, cholecalciferol (Vitamin D3) 200 Unit tablet split tablet Take 2,000 mg by mouth daily. Yes Historical Provider, coenzyme Q-10 (Q-SORB) 100 MG capsule Take 200 mg by mouth daily. Yes Historical Provider, escitalopram (Lexapro) 20 MG tablet daily. 12/20/22 Yes Historical Provider, gabapentin (Neurontin) 300 MG capsule 10/10/22 Yes Historical Provider, lisinopril 10 MG tablet Take by mouth daily. 12/17/22 Yes Historical Provider, niacin 500 MG tablet Take 1,000 mg by mouth daily. Yes Historical Provider, omega-3 (Fish Oil) 1000 MG capsule Take by mouth daily. Yes Historical Provider, omeprazole (PriLOSEC) [address] capsule daily. 12/28/22 Yes Historical Provider, rOPINIRole (Requip) 0.25 MG tablet Nightly. 12/12/22 Yes Historical Provider, simvastatin (Zocor) 40 MG tablet daily. 09/18/22 Yes Historical Provider, Vitals: BP 122/72 (BP Location: Left arm, Patient Position: Sitting, BP Cuff Size: Large adult) Pulse 76 Ht 5' 10 (1.778 m) Wt 181 lb (82.1 kg) BMI 25.97 kg/m Physical Exam General: alert, appears stated age, and cooperative Abdomen: soft and nondistended Back: straight, CVA tenderness absent : defer exam Labs: WBC No results found for: WBC BMP No results found for: NA, K, CL, CO2, BUN, CREATININE, GLUCOSE, CALCIUM PSA No results found for: PSA UANo results found for: APPEARANCE, COLORU, LABSPEC, LABPH, URINE, GLUCOSEU, UROBILINOGEN, BILIRUBINUR, OCBU Review: PSA 09/04/24 0.05 PSA 03/05/24 0.04 PSA 09/03/23 0.03 PSA 03/15/23 0.01 PSA 10/23/22 0.02 PSA 11/20/22 0.02 Impression/Plan Diagnoses and all orders for this visit: Prostate cancer (HCC) - PSA, total and free; Future Rising PSA following treatment for malignant neoplasm of prostate History of external beam radiation therapy He is overall doing well Lost 20 lbs through exercise and diet changes PSA remains very low yet detectable. PSA increasing slowly over time He has been treated with RALP and salvage radiation. There are no further curative options. If PSA would rise drastically, or further then could consider PSMA testing, lifelong ADT Follow up in about 6 months (around 03/24/2025) for psa. Patel Bo MD 09/24/24 12:00 PM documented in this encounter [facility] 03-19-2024 History of Presen t illness Narrative Images from the original note were not included. Patel Bo MD 03/19/2024 at 10:56 AM Office follow up PATIENT NAME: Italo Velasquez DATE OF : 1950 TODAY'S DATE: 03/19/2024 CHIEF COMPLAINT: Chief Complaint Patient presents with Prostate Cancer 6 month follow up with PSA prior Subjective: Mr. Velasquez is a 74 y.o. male who presents to the office for follow up of prostate cancer He did have robotic assisted laparoscopic radical prostatectomy and bilateral pelvic lymph node dissection 06/16/2018. Pathology from this was eldon 3+4, pt3b, with a rising PSA. He completed salvage radiation. 08/2019 He has been overall doing very well He denies hematuria Voiding ok Continence is excellent Review of Systems Constitutional: Negative for activity change, chills, fatigue and fever. Gastrointestinal: Negative for abdominal distention and abdominal pain. Genitourinary: Negative for decreased urine volume, difficulty urinating, flank pain, hematuria and urgency. Past Medical History: Past Medical History: Diagnosis Date Asthma Cancer (CMS/HCC) (HCC) 2018 prostate Hyperlipidemia Hypertension PIPE on CPAP Past Surgical History: Past Surgical History: Procedure Laterality Date COLONOSCOPY PROSTATECTOMY 06/16/2018 Robotic Assisted Laparoscopic Prostatectomy with Bilateral Pelvic Lymph Node Dissection Allergies: Acetaminophen and Atorvastatin Social History: Social History Socioeconomic History Marital status: Spouse name: Not on file Number of children: Not on file Years of education: Not on file Highest education level: Not on file Occupational History Not on file Tobacco Use Smoking status: Never Smokeless tobacco: Never Vaping Use Vaping status: Never Used Substance and Sexual Activity Alcohol use: No Drug use: No Sexual activity: Not Currently Partners: Female Comment: Other Topics Concern Not on file Social History Narrative Not on file Social Determinants of Health Financial Resource Strain: Not on file Food Insecurity: Not on file Transportation Needs: Not on file Physical Activity: Not on file Stress: Not on file Social Connections: Not on file Intimate Partner Violence: Not on file Housing Stability: Not on file Family History: Medications Prior to Admission medications Medication Sig Start Date End Date Taking? Authorizing Provider Aspirin 81 MG capsule Take 81 mg by mouth daily. Yes Historical Provider, b complex vitamins capsule Take 1 capsule by mouth daily. Yes Historical Provider, coenzyme Q-10 (Q-SORB) 100 MG capsule Take 200 mg by mouth daily. Yes Historical Provider, escitalopram (Lexapro) 20 MG tablet daily. 12/20/22 Yes Historical Provider, lisinopril 10 MG tablet Take by mouth daily. 12/17/22 Yes Historical Provider, omega-3 (Fish Oil) 1000 MG capsule Take by mouth daily. Yes Historical Provider, omeprazole (PriLOSEC) [address] capsule daily. 12/28/22 Yes Historical Provider, rOPINIRole (Requip) 0.25 MG tablet Nightly. 12/12/22 Yes Historical Provider, simvastatin (Zocor) 40 MG tablet daily. 09/18/22 Yes Historical Provider, cholecalciferol (Vitamin D3) 200 Unit tablet split tablet Take 2,000 mg by mouth daily. Historical Provider, gabapentin (Neurontin) 300 MG capsule 10/10/22 Historical Provider, niacin 500 MG tablet Take 1,000 mg by mouth daily. Historical Provider, Vitals: Ht 5' 10 (1.778 m) Wt 189 lb (85.7 kg) BMI 27.12 kg/m Physical Exam General: alert, appears stated age, and cooperative Abdomen: soft and nondistended Back: straight, CVA tenderness absent : defer exam Labs: WBC No results found for: WBC BMP No results found for: NA, K, CL, CO2, BUN, CREATININE, GLUCOSE, CALCIUM PSA No results found for: PSA UANo results found for: APPEARANCE, COLORU, LABSPEC, LABPH, URINE, GLUCOSEU, UROBILINOGEN, BILIRUBINUR, OCBU Review: PSA 03/05/24 0.04 PSA 09/03/23 0.03 PSA 03/15/23 0.01 PSA 10/23/22 0.02 PSA 11/20/22 0.02 Impression/Plan Diagnoses and all orders for this visit: Prostate cancer (HCC) - PSA, total and free; Future Rising PSA following treatment for malignant neoplasm of prostate Stress incontinence He is overall doing very well Urinary continence excellent PSA remains very very low Continue to follow PSA every 6 mo Follow up in about 6 months (around 09/19/2024) for psa. Patel Bo MD 03/19/24 10:56 AM documented in this encounter [facility] 09-19-2023 History of Presen t illness Narrative Images from the original note were not included. Patel Bo MD 09/19/2023 at 11:02 AM Office follow up PATIENT NAME: Italo Velasquez DATE OF : 1950 TODAY'S DATE: 09/19/2023 CHIEF COMPLAINT: Chief Complaint Patient presents with Prostate Cancer PSA prior to visit Subjective: Mr. Velasquez is a 73 y.o. male who presents to the office for follow up of prostate cancer He did have robotic assisted laparoscopic radical prostatectomy and bilateral pelvic lymph node dissection 06/16/2018. Pathology from this was eldon 3+4, pt3b, with a rising PSA. He completed salvage radiation. 08/2019 Review of Systems Constitutional: Negative for activity change, chills, fatigue and fever. Gastrointestinal: Negative for abdominal pain. Genitourinary: Negative for difficulty urinating and hematuria. Past Medical History: Past Medical History: Diagnosis Date Asthma Cancer (CMS/HCC) (HCC) 2018 prostate Hyperlipidemia Hypertension PIPE on CPAP Past Surgical History: Past Surgical History: Procedure Laterality Date COLONOSCOPY PROSTATECTOMY 06/16/2018 Robotic Assisted Laparoscopic Prostatectomy with Bilateral Pelvic Lymph Node Dissection Allergies: Patient has no known allergies. Social History: Social History Socioeconomic History Marital status: Spouse name: Not on file Number of children: Not on file Years of education: Not on file Highest education level: Not on file Occupational History Not on file Tobacco Use Smoking status: Never Smokeless tobacco: Never Vaping Use Vaping Use: Never used Substance and Sexual Activity Alcohol use: No Drug use: No Sexual activity: Not Currently Partners: Female Comment: Other Topics Concern Not on file Social History Narrative Not on file Social Determinants of Health Financial Resource Strain: Not on file Food Insecurity: Not on file Transportation Needs: Not on file Physical Activity: Not on file Stress: Not on file Social Connections: Not on file Intimate Partner Violence: Not on file Housing Stability: Not on file Family History: Medications Prior to Admission medications Medication Sig Start Date End Date Taking? Authorizing Provider Aspirin 81 MG capsule Take 81 mg by mouth daily. Yes Historical Provider, b complex vitamins capsule Take 1 capsule by mouth daily. Yes Historical Provider, cholecalciferol (Vitamin D3) 200 Unit tablet split tablet Take 2,000 mg by mouth daily. Yes Historical Provider, coenzyme Q-10 (Q-SORB) 100 MG capsule Take 200 mg by mouth daily. Yes Historical Provider, escitalopram (Lexapro) 20 MG tablet daily. 12/20/22 Yes Historical Provider, lisinopril 10 MG tablet Take by mouth daily. 12/17/22 Yes Historical Provider, niacin 500 MG tablet Take 1,000 mg by mouth daily. Yes Historical Provider, omega-3 (Fish Oil) 1000 MG capsule Take by mouth daily. Yes Historical Provider, omeprazole (PriLOSEC) [address] capsule daily. 12/28/22 Yes Historical Provider, rOPINIRole (Requip) 0.25 MG tablet Nightly. 12/12/22 Yes Historical Provider, simvastatin (Zocor) 40 MG tablet daily. 09/18/22 Yes Historical Provider, gabapentin (Neurontin) 300 MG capsule 10/10/22 Historical Provider, Vitals: BP 126/67 Pulse 54 Ht 5' 10 (1.778 m) Wt 189 lb (85.7 kg) BMI 27.12 kg/m Physical Exam General: alert, appears stated age, and cooperative Abdomen: soft and nondistended Back: spine nontender, CVA tenderness absent : defer exam Labs: WBC No results found for: WBC BMP No results found for: NA, K, CL, CO2, BUN, CREATININE, GLUCOSE, CALCIUM PSA No results found for: PSA UANo results found for: APPEARANCE, COLORU, LABSPEC, LABPH, URINE, GLUCOSEU, UROBILINOGEN, BILIRUBINUR, OCBU Review: PSA 09/03/23 0.03 PSA 03/15/23 0.01 PSA 10/23/22 0.02 PSA 11/20/22 0.02 Impression/Plan Diagnoses and all orders for this visit: Prostate cancer (HCC) - PSA, total and free; Future - PSA, total and free; Future Rising PSA following treatment for malignant neoplasm of prostate - PSA, total and free; Future Stress incontinence PSA remains very low, doing great after RALP and salvage prostatectomy PSA remains low yet barely detectable Continue kegel exercises, he is overall doing very well.he may actually be doing too many kegels Follow up in about 6 months (around 03/19/2024) for psa. Patel Bo MD 09/19/23 11:02 AM documented in this encounter [facility] 08-26-2023 Telephone encounter Note Form atting of this note might be different from the original. Pt unable to find PSA order that was printed during last visit. Pt called office to see if we can mail a new order out. Advised pt I will mail out PSA and [facility] Miscellaneous Notes Formattin g of this note might be different from the original. Pt unable to find PSA order that was printed during last visit. Pt called office to see if we can mail a new order out. Advised pt I will mail out PSA and scheduled for FU. documented in this encounter [facility] 06-12-2023 History of Presen t illness Narrative RADIATION ONCOLOGY FOLLOW UP PATIENT: Italo Velasquez DATE OF SERVICE: 06/12/2023 : 1950 AGE: 73 y.o. PRIMARY SITE: C61 prostate, adenocarcinoma, Eldon's grade group 2 (3+4) with original PSA of 8.47 on 01/27/2018. STAGE: cT1c N0 M0; pT3b N0 M0, IIIB HISTORY OF PRESENT ILLNESS: Mr. Velasquez is a 73-year-old male with a history of rising PSA. On 01/27/2018 it was 8.47. On 04/08/2018 he underwent prostate biopsy. This revealed 6 out of 12 cores to be involved. It ranged from a Eldon score 6 (3+3) to a Eldon score 7 (3+4). Treatment options were discussed. He pursued surgery. On 06/16/2018 he underwent a robotic radical prostatectomy, bilateral pelvic lymphadenectomy and complete sphincteric ANC Rahul Villers reconstruction. Patient was serially followed and the PSA was noted to be rising. PSA on 06/04/2019 was 0.06. He presented for radiation which completed 09/01/2019. INTERVAL SINCE RADIATION: 3 1/2 years ? 07/05/19 - 09/01/19: 70.20/70.20 Gy to the Pros Bed Region in 39 fractions of 1.80 Gy using the VMAT/Daily IGRT technique with 10 MV over 58 days. INTERVAL HISTORY: The patient returns with his for follow-up today. He has done well. Appetite and energy level are stable. He exercises regularly. He is no respiratory or cardiac complaints. No swelling in extremities. No bowel issues. He notes that he still has the urinary incontinence with activity. No dysuria or hematuria. He has a strong stream. No arthritic symptoms. He continues to closely follow with urology who was last seen in March. Since last seen he had a sinuplasty and is utilizing a nebulizer treatment daily. PAST MEDICAL HISTORY: Past Medical History: Diagnosis Date Asthma Cancer (CMS/HCC) (HCC) 2018 prostate Hyperlipidemia Hypertension PIPE on CPAP PAST SURGICAL HISTORY: Past Surgical History: Procedure Laterality Date COLONOSCOPY PROSTATECTOMY 06/16/2018 Robotic Assisted Laparoscopic Prostatectomy with Bilateral Pelvic Lymph Node Dissection Sinuplasty. ALLERGIES: Allergies as of 06/12/2023 (No Known Allergies) MEDICATIONS: Current Outpatient Medications Medication Sig Dispense Refill Aspirin 81 MG capsule Take 81 mg by mouth daily. b complex vitamins capsule Take 1 capsule by mouth daily. cholecalciferol (Vitamin D3) 200 Unit tablet split tablet Take 2,000 mg by mouth daily. coenzyme Q-10 (Q-SORB) 100 MG capsule Take 200 mg by mouth daily. escitalopram (Lexapro) 20 MG tablet daily. lisinopril 10 MG tablet Take by mouth daily. niacin 500 MG tablet Take 1,000 mg by mouth daily. omega-3 (Fish Oil) 1000 MG capsule Take by mouth daily. omeprazole (PriLOSEC) [address] capsule daily. rOPINIRole (Requip) 0.25 MG tablet Nightly. simvastatin (Zocor) 40 MG tablet daily. gabapentin (Neurontin) 300 MG capsule No current facility-administered medications for this encounter. REVIEW OF SYSTEMS: As above. Pain score 0. Mayo score is 0. AUA score is 3. KPS: 100 SUMMARY OF SIGNIFICIANT X-RAY/LABORATORY FINDINGS: PSA on 01/22/2020 was less than 0.01. PSA on 11/03/2020 was less than 0.01. PSA on 02/17/2021 was less than 0.01. PSA on 05/22/2021 was less than 0.01, on 09/28/2021 was less than 0.01, on 03/13/2022 was 0.02 which was questioned, repeat on 04/17/2022 was less than 0.01. PSA on 10/23/2022 was 0.02, on 11/20/2022 was 0.02, on 03/15/2023 was 0.03. PHYSICAL EXAM: BP (!) 143/74 Pulse 54 Temp 96.8 F (36 C) Resp 20 Ht 5' 10 (1.778 m) Wt 189 lb 9.6 oz (86 kg) SpO2 95% BMI 27.20 kg/m /Pain Score: 0 - No pain GENERAL: Awake, alert, oriented x3, no anxiety, dressed appropriately, appears of stated age. Ambulates without assistance. Speech pattern fluent. LUNGS: Clear to auscultation. No rales or rhonchi. HEART: Regular rate and rhythm, S1-S2 noted no murmur. NECK: Symmetric. NODES: No neck, supraclavicular, infraclavicular adenopathy. ABDOMEN: Soft, nontender, nondistended. No hepatosplenomegaly, no suspicious mass. MUSCULOSKELETAL: No swelling. No calf tenderness. No spine or posterior chest wall tenderness. IMPRESSION: Italo Velasquez is a 73 y.o. gentleman with prostate cancer. Surgery in 2017, external radiation in 2019. Clinically he is doing well and without symptoms. There is a detectable minute level of PSA noted. He continues to closely follow with urology. He knows to continue eating healthy staying hydrated and exercise as usual. PLAN: At this point we will discharge his care back to urology. He knows to call if any questions or concerns arise. We thank you for the consultation. Gina Baker MD [facility] Department of Radiation Oncology is an Accredited Facility of the [employer] ([employer]). Total time: 25 minutes in chart review, lab evaluation/interpretation, patient exam, patient counseling and care coordination. This document was completed utilizing speech recognition software. Grammatical errors, random word insertions, pronoun errors, and incomplete sentences are an occasional consequence of this system due to software limitations, ambient noise, and hardware issues. Any formal questions or concerns about the content, text or information contained within the body of this dictation should be directly addressed to the provider for clarification. documented in this encounter [facility] 06-12-2023 Nurse Note The patient is here at [facility] with his for follow up with Dr. Baker. His last PSA was drawn 03/15/23 and it resulted 0.01. He denies pain at the current time. He denies any skin issues at the previous site of radiation. The patient states his appetite, energy level, and sleeping are all WNL. He states he has a strong urine stream and he is able to completely empty his bladder. He denies any dysuria, hematuria, frequency, or urgency. He reports experiencing urinary incontinence with activity. He denies any diarrhea or blood in his stools. He continues to follow up with Dr. Bo every 6 months. [facility] 06-12-2023 Nurse Note The patient is here at [facility] with his for follow up with Dr. Baker. His last PSA was drawn 03/15/23 and it resulted 0.01. He denies pain at the current time. He denies any skin issues at the previous site of radiation. The patient states his appetite, energy level, and sleeping are all WNL. He states he has a strong urine stream and he is able to completely empty his bladder. He denies any dysuria, hematuria, frequency, or urgency. He reports experiencing urinary incontinence with activity. He denies any diarrhea or blood in his stools. He continues to follow up with Dr. Bo every 6 months. documented in this encounter [facility] 12-07-2022 History of Presen t illness Narrative Spoke with Mari regarding PSA level of 0.02 from <0.01(04/2022). Will clarify with Dr. Bo if Plarify is indicated with a level at 0.02. Pt was unsure of appt scheduled for 12/20 in [place]. Pt and unable to go to [place] office can we reschedule to [place] or Virtual visit? documented in this encounter [facility] Evaluation note Diagnosis Onset Date [id number] chronic Essential (primary) hypertension chronic Hyperlipidemia [facility] Work Phone: Evaluation noteNo assessment information available [facility] Work Phone: Evaluation note* Diagnosis Prostate cancer (HCC)- Primary Malignant neoplasm of prostate documented in this encounter [facility] note* Diagnosis Prostate cancer (HCC)- Primary Malignant neoplasm of prostate Rising PSA following treatment for malignant neoplasm of prostate Stress incontinence Female stress incontinence documented in this encounter [facility] note* Diagnosis Prostate cancer (HCC)- Primary Malignant neoplasm of prostate Rising PSA following treatment for malignant neoplasm of prostate History of external beam radiation therapy documented in this encounter [facility] Advance Directives No Advanced Directives Records FoundDocuments on File Type Date Recorded Patient Senior Medical Director Expl anation Advance Directives and Living Will Power of Bankruptcy Manager Latest Code Status on File Code Status Date Activated Date Inactivated Comments Full Code 06/16/2018 5:11 PM 06/17/2018 4:16 PM Full Code 06/16/2018 10:10 AM 06/16/2018 5:07 PM Documents on File Type Date Recorded Patient Senior Medical Director Expl anation ACP-Advance Directive ACP-Power of Bankruptcy Manager Advance Directive Response Recorded Date/ Time Advance Directives Yes April 9:03am Living Will Yes May 02, 2020 9:03am Power of Bankruptcy Manager Yes April 9:03am Advance Directive Response Recorded Date/ Time Advance Directives Yes April 8:03am Living Will Yes May 02, 2020 8:03am Power of Bankruptcy Manager Yes April 8:03am Summary Purpose Family History No Family History Records Found Relationship Condition Age at Onset Recorded Date/T topher mother Cardiac disease Unknown Coronary artery disease Unknown Myocardial infarction Unknown Chief Complaint and Reason for Visit Chief Complaint 6 M FU E ORDER Reason for Visit [id number] Essential (primary) hypertension Hyperlipidemia Chief Complaint 6 M FU E ORDER E ORDERS Malignant neoplasm of prostate Reason for Visit [id number] Essential (primary) hypertension Hyperlipidemia Chief Complaint E ORDERS Malignant neoplasm of prostate Chief Complaint E ORDERS Malignant neoplasm of prostate Cough Chief Complaint Cough Cough Cough SPECIMEN #3 Chief Complaint Cough Cough Cough SPECIMEN #[address] Chief Complaint ABNORMAL LIVER CT E ORDERS Chief Complaint E ORDER NEAR SYNCOPE Additional Source Comments (unrecognized sect ion and content) No Status Records FoundNo Status Records FoundNo Status Records FoundNo Status Records Found INFORMATION SOURCE (unrecogn ized section and content) DATE CREATED AUTHOR 07/02/2019 [facility] DATE CREATED AUTHOR AUTHOR'S ORGANIZ ATION 05/17/2022 [facility] DATE CREATED AUTHOR AUTHOR'S ORGANIZ ATION 09/26/2024 [facility] DATE CREATED AUTHOR AUTHOR'S ORGANIZ ATION 01/06/2025 [facility] Teams (unrecognized sec tion and content) Team Status: Active Member Role Status Dates Dr. Kannan Carlton MD Family Provider Active Fatemeh Griffith DO Primary Care Provider Active Team Status: Inactive Member Role Status Dates Fatemeh Griffith DO Primary Care Provider Active Dr. Zaid Kirby MD Attending Provider, Referring Pr ovider Active Team Status: Inactive Member Role Status Dates Fatemeh Griffith DO Primary Care Provider Active Dr. Jae Frazier MD Attending Provider, Referrin g Provider Active Team Status: Active Member Role Status Dates Fatemeh Griffith DO Primary Care Provider Active Dr. Jae Frazier MD Attending Provider, Referrin g Provider Active Team Status: Active Member Role Status Dates Fatemeh Griffith DO Primary Care Provider Active Dr. Jae Frazier MD Attending Provider Active Team Status: Inactive Member Role Status Dates Fatemeh Griffith DO Primary Care Provider Active Dr. Jae Frazier MD Attending Provider Active Team Status: Inactive Member Role Status Dates Fatemeh Griffith DO Primary Care Provider Active ANUPAM AYALA Attending Provider Active Team Status: Active Member Role Status Dates Fatemeh Griffith DO Primary Care Provider, Attending Provider Active Team Status: Inactive Member Role Status Dates Fatemeh Griffith DO Primary Care Provider, Attending Provider Active Team Status: Inactive Member Role Status Dates Fatemeh Griffith DO Primary Care Provider Active YAHIR DOYLE Attending Provider, Referring Provide r Active Team Status: Inactive Member Role Status Dates Fatemeh Griffith DO Primary Care Provider Active Dr. Hector Yuen MD Attending Provider, Referring Pro vider Active Role Player Relationship Specialty Start Date End Date BiankaKannanawilda [address] [facility] [place] [address] PCP - General 06/11/19 Patel Bo MD [address] [place], [place] [id number] Surgeon Urology 10/24/22 Role Player Relationship Specialty Start Date End Date Fatemeh Griffith DO [address] [place] [address] [address] [place], [place] [address] PCP - General Family Medicine 03/26/23 Patel Bo MD [address] [place] [address]. [address] [place], [place] [id number] Surgeon Urology 10/24/22 Team Status: Inactive Member Role Status Dates Fatemeh Griffith DO Primary Care Provider Active Nohemi Rodríguez DECORATIVE ENGRAVER APPRENTICE, DECORATIVE ENGRAVER APPRENTICE-C Attending Provider, Referring P rovider Active Team Status: Inactive Member Role Status Dates Fatemeh Griffith DO Primary Care Provider Active ANUPAM AYALA Attending Provider, Referring Provider Active Team Status: Active Member Role Status Dates Fatemeh Griffith DO Primary Care Provider Active Nohemi Rodríguez DECORATIVE ENGRAVER APPRENTICE, DECORATIVE ENGRAVER APPRENTICE-C Attending Provider, Referring P rovider Active Role Player Relationship Specialty Start Date End Date Fatemeh Griffith DO [address] [place] [address] [address] [place], [place] [address] PCP - General Family Medicine 03/26/23 Patel Bo MD [address] [place] [address]. [address] [place] [address] Surgeon Urology 10/24/22 Role Player Relationship Specialty Start Date End Date Fatemeh Griffith DO [address] [place] [address] [address] [place], [place] [id number] PCP - General Family Medicine 03/26/23 Patel Bo MD [address] [place], [place] [id number] Surgeon Urology 10/24/22 Role Player Relationship Specialty Start Date End Date Dilma Montes MD [address] [place] [address] PCP - General Family Medicine 03/19/24 Patel Bo MD [address] [place] [address] Surgeon Urology 10/24/22 Role Player Relationship Specialty Start Date End Date Dilma Montes MD [address] [facility] [facility] [address] [place] [address] PCP - General Family Medicine 03/19/24 Patel Bo MD [address] [place] [address] Surgeon Urology 10/24/22 Reason for Visit (unrecogniz ed section and content) Reason Comments Results Reason Comments Follow-up Reason Comments Prostate Cancer PSA prior to visit Reason Comments Prostate Cancer 6 month follow up wi th PSA prior Reason Comments Prostate Cancer PSA prior FOR RECORDS PERTAINING TO PATIENTS WHO ARE OR HAVE BEEN ENROLLED IN A CHEMICAL DEPENDENCY/SUBSTANCEABUSE PROGRAM, SOME INFORMATION MAY BE OMITTED. This clinical summary was aggregated from multiple sources. Caution should be exercised in using it in the provision of clinical care. This summary normalizes information from multiple sources, and as a consequence, information in this document may materially change the coding, format and clinical context of patient data. In addition, data may be omitted in some cases. CLINICAL DECISIONS SHOULD BE BASED ON THE PRIMARY CLINICAL RECORDS. [email or web address] provides no warranty or guarantee of the accuracy or completeness of information in this document.
== END | disposition home or self-care (01) ==
PROVIDERS: PCP Family Medicine; Referring Provider Family Medicine; Visit Provider Family Medicine
DX: E78.00 Pure hypercholesterolemia, unspecified (principal)
CPT/HCPCS: 36415; 80053; 80061; 85025

== ENCOUNTER → 2025-03-02 | Outpatient (CLI) | payer MEDICARE, OTHER, SELFPAY ==
[2025-03-03 14:09] LABS: PSA, Free <0.02 ng/mL; PSA, Free % <35.1 % (.); PSA, Total Ultrasensitive 0.057 ng/mL (0.000-4.000)
== END | disposition home or self-care (01) ==
LOC: LAB 12:41
PROVIDERS: PCP Family Medicine; Referring Provider Urology; Visit Provider Urology
DX: C61 Malignant neoplasm of prostate (principal)
CPT/HCPCS: 36415; 84153; 84154

== ENCOUNTER → 2025-06-07 | Outpatient (CLI) | payer MEDICARE, OTHER, SELFPAY ==
[2025-06-07 12:57] LABS: Ferritin 154 ng/mL (37-417); Iron 126 ug/dL (65-175); Iron Binding Capacity,Total 265 ug/dL (250-450); Iron Binding Capacity,Unsat 139 ug/dL (228-428)
== END | disposition home or self-care (01) ==
LOC: LAB 11:10
PROVIDERS: PCP Family Medicine; Referring Provider Internal Medicine Pulmonary Disease; Visit Provider Internal Medicine Pulmonary Disease
DX: G25.81 Restless legs syndrome (principal)
CPT/HCPCS: 36415; 82728; 83540; 83550